=== PATIENT | male | born 1990 | race Caucasian/White ===

== ENCOUNTER 2021-10-11 21:49 | Emergency (ER) | payer OTHER, SELFPAY ==
--- NOTE | ~2021-10-11 | XR_ITS ---
EXAMINATION: XR CHEST CLINICAL INFORMATION: Cough COMPARISON: None TECHNIQUE: Frontal view of the chest was obtained. FINDINGS: The lungs are well expanded. There is no focal consolidation, edema, or effusion. No pneumothorax. The cardiomediastinal silhouette is within normal limits. No acute osseous abnormality. XR/XR chest 1V IMPRESSION: Clear lungs.
[2021-10-11 21:56] VITALS: BP 141/89; PULSE 115; RESP 18; TEMP 38.9; O2SAT 96; BMI 25.8
[2021-10-11] MEDS: Ondansetron ODT 4 MG TAB.RAPDIS TRANSLINGU (22:19)
[2021-10-11] MEDS: Acetaminophen 325 MG TABLET 650 MG PO (22:19)
--- NOTE | 2021-10-11 22:20 | ECG_ITS ---
Test Reason : DIZZINESS Blood Pressure : / mmHG Vent. Rate : 118 BPM Atrial Rate : 118 BPM P-R Int : 144 ms QRS Dur : 088 ms QT Int : 306 ms P-R-T Axes : 051 003 065 degrees QTc Int : 428 ms Sinus tachycardia Low voltage QRS Borderline ECG No previous ECGs available Referred By: Generic ED Physician Electronically Signed By:BELEN ARIAS
[2021-10-11 22:26] LABS: Basophils Percent Auto 0.1 % (0-2); Eosinophils Percent Auto 0.1 % (0-4); Hematocrit 45.8 % (42.0-52.0); Hemoglobin 16.2 g/dl (14.0-18.0); Imm Gran Abs Auto 0.04 X10*3/uL (0.00-0.03); Imm Gran Pct Auto 0.6 % (0.0-0.4); Lymphocytes Absolute Auto 0.5 X10*3/uL (1.2-4.9); Lymphocytes Percent Auto 6.6 % (20-40); MANUAL DIFF FLAG SCAN; Mean Corpuscular HGB Conc 35.4 g/dl (31.0-36.0); Mean Corpuscular Hemoglobin 31.2 pg (27.0-33.0); Mean Corpuscular Volume 88.2 fL (80.0-98.0); Mean Platelet Volume 12.1 fL (9.4-12.4); Monocytes Absolute Auto 1.4 X10*3/uL (0.1-1.2); Monocytes Percent Auto 21.1 % (2-11); Neutrophils Absolute Auto 4.8 x10*3/uL (2.0-8.3); Neutrophils Percent Auto 71.5 % (45-73); Platelet Count 145 X10*3/uL (160-400); Red Blood Count 5.19 X10*6/uL (4.60-5.80); Red Cell Distribution Width 12.2 % (11.0-16.0); SCAN SMEAR FLAG 1; White Blood Count 6.8 X10*3/uL (4.8-10.8)
[2021-10-11 22:36] LABS: COVID-19 Test Positive (Negative)
[2021-10-11 22:38] LABS: Lactic Acid 1.3 mmol/L (0.5-2.0)
[2021-10-11 22:43] LABS: Alanine Aminotransferase 117 U/L (0-40); Albumin Level 4.9 g/dL (3.5-5.0); Alkaline Phosphatase 53 U/L (39-117); Anion Gap 19 (12-20); Aspartate Amino Transferase 59 U/L (5-37); Bilirubin Total 0.8 mg/dL (0.0-1.0); Blood Urea Nitrogen 24 mg/dL (9-16); Calcium 9.8 mg/dL (8.4-10.2); Carbon Dioxide 22 mmol/L (22-29); Chloride 102 mmol/L (96-108); Creatinine Clr Calc Pharmacy 54.4; Estimated Glomerular Filt Rate 45; Glucose Random 107 mg/dL (60-115); Potassium 4.3 mmol/L (3.3-5.1); SLIDE REVIEW VERIFIED; Sodium 139 mmol/L (135-145)
[2021-10-12 01:05] VITALS: BP 136/81; PULSE 105; RESP 18; O2SAT 97
--- NOTE | 2021-10-12 01:08 | ED.NAVMDI ---
HPI - Nausea/Vomiting/Diarrhea General Chief complaint: Nausea/Vomiting/Diarrhea Stated complaint: Vomiting, fever Time Seen by Provider: 10/12/21 01:06 Source: patient Mode of arrival: ambulatory Limitations: no limitations History of Present Illness HPI Narrative: Patient with no significant past medical history been nauseated vomiting last 2 days slight sore throat and slight cough had fever also at home no significant abdominal pain patient has been vaccinated against COVID has not received a booster dose. No other family member sick Related Data Previous Rx's Medication Instructions Recorded ondansetron 4 mg disintegrating 4 mg PO Q6-8H PRN nausea and 10/12/21 tablet vomiting #15 tabs Allergies Allergy/AdvReac Type Severity Reaction Status Date / Time amoxicillin [AMOXICILLIN] Allergy Unknown HIVES Unverified 11/10/19 18:31 azithromycin [From ZITHROMAX] Allergy Unknown HIVES, Unverified 11/10/19 18:31 MUSCLE SPASMS sulfamethoxazole Allergy Unknown HIVES Unverified 11/10/19 18:31 [From BACTRIM] trimethoprim [From BACTRIM] Allergy Unknown HIVES Unverified 11/10/19 18:31 Review of Systems Review of Systems: Yes all other systems are reviewed and are negative [facility] Social History Social History Alcohol intake: current Alcohol intake frequency: a few times a week Patient Tobacco Use Status: Former Tobacco user Use of substances other than those prescribed or required for medical reasons: No Advance Directives: No Physical Exam Vital Signs: Vital Signs: Last Vital Signs Temp 99.4 F 10/12/21 02:58 Pulse 95 10/12/21 02:58 Resp 16 10/12/21 02:58 BP 124/79 10/12/21 02:58 Pulse Ox 94 10/12/21 02:58 O2 Del Method 10/12/21 02:58 BMI result Body Mass Index 25.8 Appearance: Alert. Oriented X3. No acute distress. ENT: Pharynx normal. Oral Mucosa moist Neck: Normal inspection. Neck supple. CVS: Normal heart rate and rhythm. Pulses normal. Respiratory: No respiratory distress. Equal air entry bilateral, no wheezing/rales/rhonchi Abdomen: Soft and nontender. Bowel sounds are present, no mass palpable, no CVA tenderness Skin: Skin warm and dry. Normal skin color. Normal skin turgor. Extremities: No lower extremity edema. No calf tenderness Neuro: Oriented X 3. No motor deficit. MDM - Nausea/Vomiting/Diarrhea Lab Data Attestation: I reviewed the patient's lab results. Result diagrams: 10/11/21 22:15 10/11/21 22:15 Labs: Lab Results 10/11/21 10/11/21 10/11/21 Range/Units 22:09 22:15 22:15 WBC 6.8 (4.8-10.8) X10*3/uL RBC 5.19 (4.60-5.80) X10*6/uL Hgb 16.2 (14.0-18.0) g/dl Hct 45.8 (42.0-52.0) % MCV 88.2 (80.0-98.0) fL MCH 31.2 (27.0-33.0) pg MCHC 35.4 (31.0-36.0) g/dl RDW 12.2 (11.0-16.0) % Plt Count 145 L (160-400) X10*3/uL MPV 12.1 (9.4-12.4) fL Immature Gran % (Auto) 0.6 H (0.0-0.4) % Neut % (Auto) 71.5 (45-73) % Lymph % (Auto) 6.6 L (20-40) % [place] % (Auto) 21.1 H (2-11) % Eos % (Auto) 0.1 (0-4) % Baso % (Auto) 0.1 (0-2) % Lymph # (Auto) 0.5 L (1.2-4.9) X10*3/uL [place] # (Auto) 1.4 H (0.1-1.2) X10*3/uL Eos # (Auto) 0.0 (0.0-0.4) X10*3/uL Baso # (Auto) 0.0 (0.0-0.2) X10*3/uL Abs Immat Gran (auto) 0.04 H (0.00-0.03) X10*3/uL Absolute Neuts (auto) 4.8 (2.0-8.3) x10*3/uL Absolute Nucleated RBC 0.000 (0.0-0.012) X10*3/uL Nucleated RBC % (auto) 0.0 (0.0-0.2) /100WBC Smear Tech's Comments VERIFIED Sodium 139 (135-145) mmol/L Potassium 4.3 (3.3-5.1) mmol/L Chloride 102 (96-108) mmol/L Carbon Dioxide 22 (22-29) mmol/L Anion Gap 19 (12-20) BUN 24 H (9-16) mg/dL Creatinine 1.74 H (0.5-1.4) mg/dL Estim Creat Clear Calc 54.4 Estimated GFR 45 Random Glucose 107 (60-115) mg/dL Lactic Acid (0.5-2.0) mmol/L Calcium 9.8 (8.4-10.2) mg/dL Total Bilirubin 0.8 (0.0-1.0) mg/dL AST 59 H (5-37) U/L ALT 117 H (0-40) U/L Alkaline Phosphatase 53 (39-117) U/L Total Protein 8.0 (6.5-8.0) g/dL Albumin 4.9 (3.5-5.0) g/dL COVID-19 (MARTHA) Positive A (Negative) COVID-19 Clin Com See Note 10/11/21 Range/Units 22:15 WBC (4.8-10.8) X10*3/uL RBC (4.60-5.80) X10*6/uL Hgb (14.0-18.0) g/dl Hct (42.0-52.0) % MCV (80.0-98.0) fL MCH (27.0-33.0) pg MCHC (31.0-36.0) g/dl RDW (11.0-16.0) % Plt Count (160-400) X10*3/uL MPV (9.4-12.4) fL Immature Gran % (Auto) (0.0-0.4) % Neut % (Auto) (45-73) % Lymph % (Auto) (20-40) % [place] % (Auto) (2-11) % Eos % (Auto) (0-4) % Baso % (Auto) (0-2) % Lymph # (Auto) (1.2-4.9) X10*3/uL [place] # (Auto) (0.1-1.2) X10*3/uL Eos # (Auto) (0.0-0.4) X10*3/uL Baso # (Auto) (0.0-0.2) X10*3/uL Abs Immat Gran (auto) (0.00-0.03) X10*3/uL Absolute Neuts (auto) (2.0-8.3) x10*3/uL Absolute Nucleated RBC (0.0-0.012) X10*3/uL Nucleated RBC % (auto) (0.0-0.2) /100WBC Smear Tech's Comments Sodium (135-145) mmol/L Potassium (3.3-5.1) mmol/L Chloride (96-108) mmol/L Carbon Dioxide (22-29) mmol/L Anion Gap (12-20) BUN (9-16) mg/dL Creatinine (0.5-1.4) mg/dL Estim Creat Clear Calc Estimated GFR Random Glucose (60-115) mg/dL Lactic Acid 1.3 (0.5-2.0) mmol/L Calcium (8.4-10.2) mg/dL Total Bilirubin (0.0-1.0) mg/dL AST (5-37) U/L ALT (0-40) U/L Alkaline Phosphatase (39-117) U/L Total Protein (6.5-8.0) g/dL Albumin (3.5-5.0) g/dL COVID-19 (MARTHA) (Negative) COVID-19 Clin Com Discharge Plan Discharge Clinical Impression: COVID-19 Patient Disposition: Home, Self-Care Instructions: COVID-19 (Coronavirus Disease 2019) (ED) Additional Instructions: Drink plenty of fluids Nausea medication as prescribed Tylenol for fever Social distancing till you completely get better Prescriptions: New ondansetron 4 mg tablet,disintegrating 4 mg PO Q6-8H PRN (Reason: nausea and vomiting) Qty: 15 0RF Interventions: ED Discharge Assessment Last Done: 10/12/21 03:21 Discharge Date/Time: 10/12/21 03:29
[2021-10-12] MEDS: Ketorolac Tromethamine 30 MG/ML VIAL IVPUSH (01:31)
[2021-10-12] MEDS: 0.9 % Sodium Chloride 1,000 ML 999 ML IV (01:31)
[2021-10-12 02:58] VITALS: BP 124/79; PULSE 95; RESP 16; TEMP 37.4; O2SAT 94
== END 2021-10-12 03:29 | disposition home or self-care (01) ==
PROVIDERS: Emergency Provider Internal Medicine
DX: U07.1 COVID-19 (principal); R50.9 Fever, unspecified
CPT/HCPCS: 71045; 80053; 83605; 85025; 87040; 87635; 93005; 96374; 99284; 99285; J1885

== ENCOUNTER 2022-10-17 22:57 | Emergency (ER) | payer OTHER, SELFPAY ==
--- NOTE | 2022-10-17 | ECG_ITS ---
Test Reason : CHEST PAIN Blood Pressure : / mmHG Vent. Rate : 066 BPM Atrial Rate : 066 BPM P-R Int : 136 ms QRS Dur : 098 ms QT Int : 400 ms P-R-T Axes : 032 014 069 degrees QTc Int : 419 ms Normal sinus rhythm Nonspecific T wave abnormality Abnormal ECG When compared with ECG of 11-OCT-2021 22:25, Vent. rate has decreased BY 52 BPM Referred By: Generic ED Physician Electronically Signed By:BELEN ARIAS
--- NOTE | ~2022-10-17 | XR_ITS ---
EXAMINATION: XR CHEST CLINICAL INFORMATION: Cough. Shortness of breath. COMPARISON: None available. TECHNIQUE: 2 views of the chest were obtained. FINDINGS: The cardiomediastinal silhouette is normal. There is no focal lung consolidation or pleural effusion. The bony structures and soft tissues are unremarkable. XR/XR chest 2V IMPRESSION: No active cardiopulmonary disease.
[2022-10-17 23:07] VITALS: BP 151/91; PULSE 83; RESP 18; TEMP 37.1; O2SAT 98; BMI 25.5
[2022-10-17 23:37] LABS: COVID-19 Test Negative (Negative); IDNOW Serial# 6674DD1D
[2022-10-18 01:24] VITALS: BP 127/61; PULSE 80; RESP 19; TEMP 36.3; O2SAT 97
--- NOTE | 2022-10-18 01:59 | ED.GENADULT ---
HPI - General Adult General Chief complaint: General Medical Stated complaint: Chest pains, dizziness, diff breathing Time Seen by Provider: 10/18/22 01:47 Source: patient Mode of arrival: ambulatory Limitations: no limitations History of Present Illness HPI narrative: 32-year-old male with no major medical problems presents with lightheadedness and chest pain. Symptoms of started yesterday of lightheadedness, palpitations and generalized weakness and fatigue. Today, he has had intermittent left-sided chest pain that is sharp in nature. It can radiate to his neck jaw and left arm. There is no clear relieving or exacerbating features. Is not SI associated with exertion. He has had no fevers, chills, cough or mucus production. He does note the symptoms of difficulty breathing on the left side of his chest as opposed was right-sided chest. Denies any lower extremity edema. Has no history of PE or DVT. No family history of sudden cardiac . Related Data Previous Rx's Medication Instructions Recorded ondansetron 4 mg disintegrating 4 mg PO Q6-8H PRN nausea and 10/12/21 tablet vomiting #15 tabs Allergies Allergy/AdvReac Type Severity Reaction Status Date / Time amoxicillin [AMOXICILLIN] Allergy Unknown HIVES Verified 10/17/22 23:07 azithromycin [From ZITHROMAX] Allergy Unknown HIVES, Verified 10/17/22 23:07 MUSCLE SPASMS sulfamethoxazole Allergy Unknown HIVES Verified 10/17/22 23:07 [From BACTRIM] trimethoprim [From BACTRIM] Allergy Unknown HIVES Verified 10/17/22 23:07 Review of Systems Review of Systems: CONSTITUTIONAL: Denies weight loss, fever and chills. HEENT: Denies changes in vision and hearing. RESPIRATORY: Denies SOB and cough. CV: Denies palpitations + CP. GI: Denies abdominal pain, nausea, vomiting and diarrhea. : Denies dysuria and urinary frequency. MSK: Denies myalgia and joint pain. SKIN: Denies rash and pruritus. NEUROLOGICAL: Denies headache and syncope. PSYCHIATRIC: Denies recent changes in mood. Denies anxiety and depression. All other ROS are negative unless in HPI PMFSH Social History Social History Alcohol intake: current Alcohol intake frequency: a few times a week Patient Tobacco Use Status: Former Tobacco user Advance Directives: No Advance Directives Information Provided: Yes Physical Exam ED Vital Signs: Vital Signs - 24 hr 10/17/22 23:07 10/18/22 01:24 Temperature 98.7 F 97.3 F Pulse Rate 83 80 Respiratory Rate 18 19 Blood Pressure 151/91 H 127/61 Pulse Oximetry 98 97 Oxygen Delivery Method Room Air Room Air BMI result Body Mass Index 25.5 GEN: Well developed, no acute distress, alert, oriented HEENT: Normocephalic, atraumatic, normal external ears, nose appears normal, no oropharyngeal edema or exudates Eyes: Normal to appearance Neck: Supple, no lymphadenopathy Respiratory: Talks in complete sentences, no respiratory distress, clear to auscultation bilaterally Cardiovascular: Regular rate and rhythm, no murmurs rubs or gallops Abdomen: Soft, nontender, nondistended, no guarding, no rebound Back: No CVA tenderness Extremities: No clubbing cyanosis or edema Neurologic: No focal neurologic deficits, cranial nerves 2-12 intact, strength is 5/5 bilaterally Skin: No rash Course Course Course Narrative: It is 3:26 a.m.. The workup is complete. Cardiac enzymes are negative. This essentially diagnostic for non ischemia. However, certainly would like to have the patient follow-up with a latin dance instructor to do some additional testing. Again consideration will be for Prinzmetal's angina in which case he might benefit from calcium channel blockers. Patient's pain is mostly resolved and I have discussed all results with the patient. He is aware that he can return at any time for any worsening, continued or other concerning symptoms. Medical Decision Making Medical Decision Making MDM Narrative: 32-year-old male presents with chest pain, lightheadedness. Examination is benign. Will obtain an EKG to rule out cardiac dysrhythmia, acute ischemia. Will check a cardiac enzymes to make sure there is no evidence of myocardial infarction. Patient has no criteria for PE or DVT. His PERC score 0. There is no indication for a D-dimer or CT angiogram of the chest. His vital signs are good he has normal oxygen saturation. However, if there is evidence of right heart strain on EKG, would certainly consider CT angiogram at that time. His chest pain is not reproducible on examination arguing against a musculoskeletal chest pain. Other differential diagnosis could include Prinzmetal's angina/coronary vasospasm, atypical chest pain, reflux, esophageal spasm, anxiety. Differential Diagnosis Differential Diagnoses: The differential diagnosis associated with the presentation includes (See above) Lab Data MDM Lab Attestation statement: I reviewed the patient's lab results. 10/18/22 02:45 10/18/22 02:45 Labs: Lab Results 10/17/22 10/18/22 10/18/22 Range/Units 23:11 02:45 02:45 WBC 8.9 (4.8-10.8) X10*3/uL RBC 5.11 (4.60-5.80) X10*6/uL Hgb 15.7 (14.0-18.0) g/dl Hct 44.8 (42.0-52.0) % MCV 87.7 (80.0-98.0) fL MCH 30.7 (27.0-33.0) pg MCHC 35.0 (31.0-36.0) g/dl RDW 11.8 (11.0-16.0) % Plt Count 190 D (160-400) X10*3/uL MPV 11.7 (9.4-12.4) fL Immature Gran % (Auto) 0.3 (0.0-0.4) % Neut % (Auto) 61.9 (45-73) % Lymph % (Auto) 25.3 (20-40) % [place] % (Auto) 10.3 (2-11) % Eos % (Auto) 1.9 (0-4) % Baso % (Auto) 0.3 (0-2) % Lymph # (Auto) 2.3 (1.2-4.9) X10*3/uL [place] # (Auto) 0.9 (0.1-1.2) X10*3/uL Eos # (Auto) 0.2 (0.0-0.4) X10*3/uL Baso # (Auto) 0.0 (0.0-0.2) X10*3/uL Abs Immat Gran (auto) 0.03 (0.00-0.03) X10*3/uL Absolute Neuts (auto) 5.5 (2.0-8.3) x10*3/uL Absolute Nucleated RBC 0.000 (0.0-0.012) X10*3/uL Nucleated RBC % (auto) 0.0 (0.0-0.2) /100WBC Sodium (135-145) mmol/L Potassium (3.3-5.1) mmol/L Chloride (96-108) mmol/L Carbon Dioxide (22-29) mmol/L Anion Gap (12-20) BUN (9-16) mg/dL Creatinine (0.5-1.4) mg/dL Estim Creat Clear Calc Estimated GFR Random Glucose (60-115) mg/dL Calcium (8.4-10.2) mg/dL Troponin I High Sens < 2.7 (<3.5-35.0) ng/L COVID-19 (MARTHA) Negative (Negative) COVID-19 Clin Com See Note 10/18/22 Range/Units 02:45 WBC (4.8-10.8) X10*3/uL RBC (4.60-5.80) X10*6/uL Hgb (14.0-18.0) g/dl Hct (42.0-52.0) % MCV (80.0-98.0) fL MCH (27.0-33.0) pg MCHC (31.0-36.0) g/dl RDW (11.0-16.0) % Plt Count (160-400) X10*3/uL MPV (9.4-12.4) fL Immature Gran % (Auto) (0.0-0.4) % Neut % (Auto) (45-73) % Lymph % (Auto) (20-40) % [place] % (Auto) (2-11) % Eos % (Auto) (0-4) % Baso % (Auto) (0-2) % Lymph # (Auto) (1.2-4.9) X10*3/uL [place] # (Auto) (0.1-1.2) X10*3/uL Eos # (Auto) (0.0-0.4) X10*3/uL Baso # (Auto) (0.0-0.2) X10*3/uL Abs Immat Gran (auto) (0.00-0.03) X10*3/uL Absolute Neuts (auto) (2.0-8.3) x10*3/uL Absolute Nucleated RBC (0.0-0.012) X10*3/uL Nucleated RBC % (auto) (0.0-0.2) /100WBC Sodium 141 (135-145) mmol/L Potassium 3.9 (3.3-5.1) mmol/L Chloride 109 H (96-108) mmol/L Carbon Dioxide 22 (22-29) mmol/L Anion Gap 14 (12-20) BUN 22 H (9-16) mg/dL Creatinine 1.12 (0.5-1.4) mg/dL Estim Creat Clear Calc 83.8 Estimated GFR > 60 Random Glucose 98 (60-115) mg/dL Calcium 9.6 (8.4-10.2) mg/dL Troponin I High Sens (<3.5-35.0) ng/L COVID-19 (MARTHA) (Negative) COVID-19 Clin Com Independent Interpretation I performed an independent interpretation of an: EKG (Normal sinus rhythm heart rate 66, normal intervals, no acute ST elevations depressions, nonspecific T-wave changes) and Plain X-Ray (No acute cardiopulmonary disease seen on chest x-ray) Prescription Management I considered prescription management with: Pain Medication Discharge Plan Discharge Clinical Impression: Acute chest pain Patient Disposition: Home, Self-Care Instructions: Chest Pain (DC) Prescriptions: No Action ondansetron 4 mg tablet,disintegrating 4 mg PO Q6-8H PRN (Reason: nausea and vomiting) Qty: 15 0RF Referrals: Zac Timmons MD [Physician] -
[2022-10-18 02:50] LABS: MANUAL DIFF FLAG NO
[2022-10-18 02:51] LABS: Basophils Percent Auto 0.3 % (0-2); Eosinophils Absolute Auto 0.2 X10*3/uL (0.0-0.4); Eosinophils Percent Auto 1.9 % (0-4); Hematocrit 44.8 % (42.0-52.0); Hemoglobin 15.7 g/dl (14.0-18.0); Imm Gran Abs Auto 0.03 X10*3/uL (0.00-0.03); Imm Gran Pct Auto 0.3 % (0.0-0.4); Lymphocytes Absolute Auto 2.3 X10*3/uL (1.2-4.9); Lymphocytes Percent Auto 25.3 % (20-40); Mean Corpuscular Hemoglobin 30.7 pg (27.0-33.0); Mean Corpuscular Volume 87.7 fL (80.0-98.0); Mean Platelet Volume 11.7 fL (9.4-12.4); Monocytes Absolute Auto 0.9 X10*3/uL (0.1-1.2); Monocytes Percent Auto 10.3 % (2-11); Neutrophils Absolute Auto 5.5 x10*3/uL (2.0-8.3); Neutrophils Percent Auto 61.9 % (45-73); Platelet Count 190 X10*3/uL (160-400); Red Blood Count 5.11 X10*6/uL (4.60-5.80); Red Cell Distribution Width 11.8 % (11.0-16.0); White Blood Count 8.9 X10*3/uL (4.8-10.8)
[2022-10-18 03:03] LABS: Anion Gap 14 (12-20); Blood Urea Nitrogen 22 mg/dL (9-16); Calcium 9.6 mg/dL (8.4-10.2); Carbon Dioxide 22 mmol/L (22-29); Chloride 109 mmol/L (96-108); Creatinine Clr Calc Pharmacy 83.8; Estimated Glomerular Filt Rate > 60; Glucose Random 98 mg/dL (60-115); Potassium 3.9 mmol/L (3.3-5.1); Sodium 141 mmol/L (135-145)
[2022-10-18 03:10] LABS: Troponin-I High Sensitivity < 2.7 ng/L (<3.5-35.0)
[2022-10-18 03:37] VITALS: BP 148/102; PULSE 52; RESP 17; O2SAT 99
== END 2022-10-18 03:38 | disposition home or self-care (01) ==
PROVIDERS: Emergency Provider Emergency Medicine; PCP Family Medicine
DX: R07.9 Chest pain, unspecified (principal); Z20.822 Contact with and (suspected) exposure to COVID-19
CPT/HCPCS: 36415; 71046; 80048; 84484; 85025; 87635; 93005; 99283

== ENCOUNTER 2023-10-02 18:39 | Emergency (ER) | payer OTHER, SELFPAY ==
--- NOTE | 2023-10-02 | ECG_ITS ---
Test Reason : CP Blood Pressure : / mmHG Vent. Rate : 076 BPM Atrial Rate : 076 BPM P-R Int : 114 ms QRS Dur : 092 ms QT Int : 370 ms P-R-T Axes : 029 022 058 degrees QTc Int : 416 ms Normal sinus rhythm Normal ECG When compared with ECG of 17-OCT-2022 23:03, No significant change was found Referred By: Generic ED Physician Electronically Signed By:ROS AMBROCIO MD
[2023-10-02 18:50] VITALS: BP 165/97; PULSE 81; RESP 18; TEMP 37.1; O2SAT 97; BMI 23.9
--- NOTE | 2023-10-02 18:51 | ED_ITS ---
HPI - General Adult General Chief complaint: General Medical Stated complaint: adverse reaction to medication, off/on CP Time Seen by Provider: 10/03/23 04:06 History of Present Illness ED Provider: Madina MORTENSEN narrative: The patient is a 33-year-old male who has a history of alcohol use issues but no other significant past medical history. He says that he saw his regular doctor earlier this week on Thursday and was prescribed Wellbutrin for depression. He took his 1st dose on Thursday. On Thursday evening he took some Benadryl. When he woke up on morning felt that something was not quite right. He felt somewhat confused and felt that he had numbness on the left side of his body. He also felt dizzy. Despite these symptoms he went to work. He was able to do his work but he found it difficult. On Thursday his symptoms persisted. He went to work but ultimately called his doctor and told his doctor about his left- sided symptoms and a sense of contusion and his doctor recommended he come to the emergency room. No fever, sweats, chills. The patient was recently in [place]. He returned last week. He had been in [place] for 4 days to go mountain climbing. The patient is unaware of any family history of early coronary disease. He is unaware of any family history of DVT/PE. No pain or swelling in his legs. Related Data Previous Rx's ?Medication ?Instructions ?Recorded ondansetron 4 mg disintegrating 4 mg PO Q6-8H PRN nausea and 10/12/21 tablet vomiting #15 tabs Allergies Allergy/AdvReac Type Severity Reaction Status Date / Time amoxicillin [AMOXICILLIN] Allergy Unknown HIVES Verified 10/02/23 18:55 azithromycin [From ZITHROMAX] Allergy Unknown HIVES, Verified 10/02/23 18:55 MUSCLE SPASMS sulfamethoxazole Allergy Unknown HIVES Verified 10/02/23 18:55 [From BACTRIM] trimethoprim [From BACTRIM] Allergy Unknown HIVES Verified 10/02/23 18:55 Review of Systems 2 Review of Systems: Yes all other systems are reviewed and are negative [facility] Social History Social History Alcohol intake: current Alcohol intake frequency: a few times a week Patient Tobacco Use Status: Former Tobacco user Smoked in Last 30 Days: No Use of substances other than those prescribed or required for medical reasons: No Advance Directives: No Advance Directives Information Provided: No Do you have a plan to hurt others: No Plan Physical Exam ED Vital Signs: Vital Signs - 24 hr 10/02/23 18:50 10/02/23 23:55 10/03/23 02:00 Temperature 98.8 F 98.5 F 98.1 F Pulse Rate 81 64 66 Respiratory Rate 18 18 16 Blood Pressure 165/97 H 140/97 H 141/96 H Pulse Oximetry 97 99 98 Oxygen Delivery Method Room Air Room Air Room Air 10/03/23 04:00 10/03/23 04:33 Temperature 97.9 F 97.9 F Pulse Rate 55 55 Respiratory Rate 18 18 Blood Pressure 123/86 123/86 Pulse Oximetry 98 98 Oxygen Delivery Method Room Air Room Air BMI result Body Mass Index 23.9 Const Other: The patient is a slim 33-year-old man who is awake and alert. He seems well oriented. He does not seem obviously confused. He does not seem in any obvious acute distress. HENMT Other: The face is symmetrical. Mucus membranes are moist. The posterior faring is unremarkable. The face exam is unremarkable. Eyes General: appearance normal, both eyes and all related structures Visual Stoll: normal visual stoll by confrontation Alignment and Position: alignment normal Periorbital: periorbital findings normal Eyelids: Yes eyelids normal Conjunctivae: conjunctivae normal Sclerae: sclerae normal Pupils: Equal, round and reactive pupils present EOM: EOMs intact bilaterally Neck Neck: Yes no meningeal signs and Yes no JVD Lymphatic: no lymphadenopathy noted Resp Effort & Inspection: normal respiratory effort Auscultation: clear to auscultation bilaterally Cardio Rate: regular rate Rhythm: regular rhythm Heart sounds: S1 normal heart sound present and S2 normal heart sound present GI Other: Nontender Palpation (GI): Soft to palpation Skin General skin exam: no rashes or lesions noted and turgor normal Neuro Other: The patient is awake and alert, oriented, and appropriate. Peoples around, equal, and reactive to light, extraocular movements are intact. ?Visual stoll are intact to confrontation. The face is symmetrical. Speech is clear and appropriate. ?strength is normal and all extremities. No pronator drift. Finger nose is normal bilaterally. Heel cordero is normal bilaterally. The patient has a normal Romberg. ?No neurological deficits appreciated. General: no meningeal signs Cranial nerves: Yes Equal, round and reactive pupils present Extrem General: Yes no pedal edema and Yes no calf tenderness Course Course Course Narrative: This is an RME: Additional HPI, ROS, PE not included below will be deferred to primary provider. RME assessment and note performed by: Tiff Maciel PA-C This is a [id number]lmr-male, with no known medical problems, who presents to the ER with complaints of dizziness, left sided facial numbness, left arm numbness. Reports episode of confusion yesterday, felt this after standing up yesterday, took extra strength benadryl the night prior due to allergy symptoms after dog exposure. Recently started on wellbutrin this week. Plan: Medical Decision Making Medical Decision Making MDM Narrative: The patient is a 33-year-old male who has a history of some degree of alcoholism, although he is not currently drinking and has not been drinking over the last several days. He started taking Wellbutrin three days ago. Over the past two days he has had unusual symptoms that include tingling on the left side of his face and his left arm. He also says that he has felt confused over the last couple of days. He returned to this area from a trip to [place] last week. He had been in [place] for four days mountain climbing. 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 ?He says that he felt sufficiently confused and bothered by his left side at symptoms today that he called his doctor and was advised to come to the emergency room. The patient's vital signs are unremarkable. His neurological exam seems normal. He does not seem to have risk factors for early coronary disease. He is PERC negative. ?EKG is normal. ?His EKG shows normal sinus rhythm at 76 bpm with normal intervals and no ischemic changes. Overall, I find the patients physical exam and his work up unremarkable. ?CBC is normal. He has some mild transaminase abnormalities that seems to be chronic. Perhaps the patient symptoms are related to the initiation of Wellbutrin or possibly the combination of Wellbutrin and Benadryl he had used. In any event I do not see any indication for additional testing in the emergency department or hospitalization. I think he may be discharged. He will be advised to hold his Wellbutrin over the weekend and contact his doctor on Thursday to discuss whether he should resume the Wellbutrin. He should return to the emergency room if worse. Lab Data 10/02/23 19:22 10/02/23 19:22 Labs: Lab Results 10/02/23 10/02/23 10/03/23 Range/Units 19:17 19:22 00:00 WBC 7.1 (4.8-10.8) X10*3/uL RBC 5.00 (4.60-5.80) X10*6/uL Hgb 15.7 (14.0-18.0) g/dl Hct 44.1 (42.0-52.0) % MCV 88.2 (80.0-98.0) fL MCH 31.4 (27.0-33.0) pg MCHC 35.6 (31.0-36.0) g/dl RDW 13.1 (11.0-16.0) % Plt Count 200 (160-400) X10*3/uL MPV 11.4 (9.4-12.4) fL Immature Gran % (Auto) 0.3 (0.0-0.4) % Neut % (Auto) 67.6 (45-73) % Lymph % (Auto) 20.6 (20-40) % [place] % (Auto) 9.2 (2-11) % Eos % (Auto) 1.7 (0-4) % Baso % (Auto) 0.6 (0-2) % Lymph # (Auto) 1.5 (1.2-4.9) X10*3/uL [place] # (Auto) 0.7 (0.1-1.2) X10*3/uL Eos # (Auto) 0.1 (0.0-0.4) X10*3/uL Baso # (Auto) 0.0 (0.0-0.2) X10*3/uL Abs Immat Gran (auto) 0.02 (0.00-0.03) X10*3/uL Absolute Neuts (auto) 4.8 (2.0-8.3) x10*3/uL Absolute Nucleated RBC 0.000 (0.0-0.012) X10*3/uL Nucleated RBC % (auto) 0.0 (0.0-0.2) /100WBC PT 11.4 (11.1-13.3) SEC INR 0.9 (0.9-1.1) Sodium 143 (135-145) mmol/L Potassium 4.0 (3.3-5.1) mmol/L Chloride 110 H (96-108) mmol/L Carbon Dioxide 25 (22-29) mmol/L Anion Gap 12 (12-20) BUN 17 H (9-16) mg/dL Creatinine 1.17 (0.5-1.4) mg/dL Estim Creat Clear Calc 79.5 Estimated GFR > 60 Random Glucose 88 (60-115) mg/dL Calcium 10.2 D (8.4-10.2) mg/dL Magnesium 2.2 (1.6-2.6) mg/dL Total Bilirubin 0.5 (0.0-1.0) mg/dL Direct Bilirubin 0.1 (0.0-0.5) mg/dL AST 42 H (5-37) U/L ALT 104 H (0-40) U/L Alkaline Phosphatase 53 (39-117) U/L Troponin I High Sens < 2.7 < 2.7 (<3.5-35.0) ng/L Total Protein 7.5 (6.5-8.0) g/dL Albumin 4.7 (3.5-5.0) g/dL Lipase 19 (8-78) U/L Influenza Type A (PCR) NEGATIVE (Negative) Influenza Type B (PCR) NEGATIVE (Negative) RSV RNA Qual (PCR) NEGATIVE (Negative) SARS-CoV-2 RNA (RT-PCR) NEGATIVE (Negative) Discharge Plan Discharge Clinical Impression: Confusion, Left sided numbness Patient Disposition: Home, Self-Care Additional Instructions: Your evaluation in the emergency room seems reassuring from the point of view of any acutely dangerous process. I would recommend stopping the Wellbutrin over the weekend. Please contact your regular doctor on Thursday to discuss how you are doing and to discuss whether resuming the Wellbutrin after several days of feeling okay seems reasonable. Otherwise rest and take it easy over the weekend. If at any point you feel significantly worse please return to the emergency room for additional evaluation. Prescriptions: No Action ondansetron 4 mg tablet,disintegrating 4 mg PO Q6-8H PRN (Reason: nausea and vomiting) Qty: 15 0RF Referrals: Alexandro Morrison DO [Primary Care Provider] - Interventions: ED Discharge Assessment Last Done: 10/03/23 04:33 Discharge Date/Time: 10/03/23 04:34 Print Language: Azerbaijani
--- OUTSIDE RECORDS SUMMARY | 2023-10-02 19:25 | XMS_ITS | Continuity of Care Document ---
Author Organization [facility] Address [address] [place] [address]- Care Team Providers Care Scrap Collector Name Role Phone Alli FLOYD, Delmi Dawn Primary Care Physician Encounter [facility] Date(s): 05/10/21 - 06/09/21 [facility] [address] [place] [address]- Attending Physician: Matrin Martinez Admitting Physician: Martin Martinez Referring Physician: AdmtrMartin Allergies, Adverse Reactions, Alerts Substance Reaction Severity Status azithromycin Active penicillin Active Bactrim Active Medications aspirin 325 mg oral tablet 325 mg, 1, tablet, By Mouth, Daily, start tomorrow 05/23, Refills 0, Maintenance, 05/22/21 7:30:00 EDT, Partial fill upon patient request if the prescription is for a schedule II opioid drug. Start Date: 05/22/21 Stop Date: 06/05/21 Status: Ordered busPIRone 7.5 mg oral tablet 1 tablet = 7.5 mg, By Mouth, 2 times a day, # 60 tablet, 6 Refills, Maintenance, 05/10/21 12:23:00 EDT, [facility] #[id number], Partial fill upon patient request if the prescription is for a schedule II opioid drug., 166.5, cm, 05/10/21 11:12:00... Start Date: 05/10/21 Stop Date: 12/06/21 Status: Ordered cyclobenzaprine 10 mg oral tablet 10 mg, 1, tablet, By Mouth, 3 times a day, PRN, Refills 0, Maintenance, for spasm, 05/22/21 7:31:00EDT, Partial fill upon patient request if the prescription is for a schedule II opioid drug. Start Date: 05/22/21 Status: Ordered hydrOXYzine hydrochloride 50 mg oral tablet 1 tablet = 50 mg, By Mouth, 4 times a day, PRN for anxiety, May cause drowsiness, # 40 tablet, 1 Refills, Maintenance, 05/10/21 12:23:00 EDT, Tablet, [facility] #[id number], Partial fill upon patient request if the prescription is for a schedule... Start Date: 05/10/21 Status: Ordered losartan 25 mg oral tablet See Instructions, 1/2 tablet every 12 hours for 28 days, start tomorrow, Refills 0, Maintenance, 05/22/21 7:33:00 EDT, Instructions Replace Required Details, Partial fill upon patient request if the prescription is for a schedule II opioid drug. Start Date: 05/22/21 Status: Ordered naproxen 500 mg oral tablet 1 tablet = 500 mg, By Mouth, 2 times a day, 0 Refills, Maintenance, 05/22/21 7:29:00 EDT, Tablet, Partial fill upon patient request if the prescription is for a schedule II opioid drug. Start Date: 05/22/21 Stop Date: 06/05/21 Status: Ordered ondansetron 4 mg oral tablet See Instructions, 1 tablet By Mouth Every 6-8 hours as needed for nausea, 0 Refills, Maintenance, 05/22/21 7:35:00 EDT, Tablet, Partial fill upon patient request if the prescription is for a scheduleII opioid drug. Start Date: 05/22/21 Status: Ordered Oxycodone See Instructions, 0 Refills, Maintenance, 05/22/21 11:09:00 EDT, Partial fill upon patient request if the prescription is for a schedule II opioid drug. Start Date: 05/22/21 Status: Ordered oxyCODONE 5 mg oral capsule See Instructions, PRN Pain , Moderate, 1 tab every 4-6 hours as needed for pain DO NOT drive while taking this medication, 0 Refills, Maintenance, 05/22/21 7:37:00 EDT, Partial fill upon patient request if the prescription is for a schedule II opio... Start Date: 05/22/21 Status: Ordered propranolol 10 mg oral tablet See Instructions, PRN, 1 tablet by mouth, 30-60 minutes before event, # 20 tablet, Refills 0, Tot. Refills 0, Maintenance, Anxiety, 12/07/19 17:08:00 EDT, Instructions Replace Required Details, [facility], [facility]/pharmacy #[id number], [address]... Start Date: 12/07/19 Status: Ordered Problem List Condition Effective Dates Status Health Status Inform ant TAVO (generalized anxiety disorder)(Confirmed) Active Panic disorder(Confirmed) Active Social History Social History Type Response Smoking Status Never (less than 100 in lifetime) entered on: 11/30/19 Sex
--- OUTSIDE RECORDS SUMMARY | 2023-10-02 19:25 | XMS_ITS | Continuity of Care Document ---
Author Organization [facility] Address [address] [place] [address]- Care Team Providers Care Bioinformatics Specialist Name Role Phone Delmi Carson NP Primary Care Physician Encounter [facility] Date(s): 05/10/21 - 05/17/21 [facility] [address] [place] [address]- Encounter Diagnosis TAVO (generalized anxiety disorder)(Discharge Diagnosis) - 05/10/21 Panic disorder(Discharge Diagnosis) - 05/10/21 Attending Physician: Delmi Carson NP Allergies, Adverse Reactions, Alerts Substance Reaction Severity Status azithromycin Active penicillin Active Bactrim Active Medications busPIRone 7.5 mg oral tablet 1 tablet = 7.5 mg, By Mouth, 2 times a day, # 60 tablet, 6 Refills, Maintenance, 05/10/21 12:23:00 EDT, [facility] #[id number], Partial fill upon patient request if the prescription is for a schedule II opioid drug., 166.5, cm, 05/10/21 11:12:00... Start Date: 05/10/21 Stop Date: 12/06/21 Status: Ordered escitalopram 10 mg oral tablet 1 tablet = 10 mg, By Mouth, Daily, # 90 tablet, 3 Refills, Maintenance, 05/24/21 8:57:00 EDT, [facility] #[id number], Partial fill upon patient request if the prescription is for a schedule II opioid drug., 166.5, cm, 05/10/21 11:12:00 ED... Start Date: 05/24/21 Stop Date: 09/21/21 Status: Ordered escitalopram 10 mg oral tablet 1 tablet = 10 mg, By Mouth, Daily, for 30 days, # 30 tablet, 1 Refills, Hard Stop 05/24/21 8:57:00 EDT, 03/25/21 8:57:00 EST, Tablet, [facility] #[id number], Partial fill upon patient request ifthe prescription is for a schedule II opioid drug.,... Start Date: 03/25/21 Stop Date: 05/24/21 Status: Ordered hydrOXYzine hydrochloride 50 mg oral tablet 1 tablet = 50 mg, By Mouth, 4 times a day, PRN for anxiety, May cause drowsiness, # 40 tablet, 1 Refills, Maintenance, 05/10/21 12:23:00 EDT, Tablet, [facility] #[id number], Partial fill upon patient request if the prescription is for a schedule... Start Date: 05/10/21 Status: Ordered propranolol 10 mg oral tablet See Instructions, PRN, 1 tablet by mouth, 30-60 minutes before event, # 20 tablet, Refills 0, Tot. Refills 0, Maintenance, Anxiety, 12/07/19 17:08:00 EDT, Instructions Replace Required Details, [facility] Electron[facility], [facility]/pharmacy #[id number], [address]... Start Date: 12/07/19 Status: Ordered Voltaren 1% topical gel 1 application, Topically, 4 times a day, PRN for pain, # 100 Gm, 0 Refills, Maintenance, 06/22/20 10:30:00 EDT, Gel, [facility] #[id number], Partial fill upon patient request if the prescriptionis for a schedule II opioid drug., 1 application To... Start Date: 06/22/20 Stop Date: 07/22/20 Status: Ordered Problem List Condition Effective Dates Status Health Status Inform ant TAVO (generalized anxiety disorder)(Confirmed) Active Panic disorder(Confirmed) Active Diagnosis Diagnosis Type Effective Dates Health Status Cl inical Service Informant TAVO (generalized anxiety disorder) Discharge Diagnosis 05/10/21 Panic disorder Discharge Diagnosis 05/10/21 Vital Signs Most recent to oldest [Reference Range]: 1 Height 166.5 cm (05/10/21 11:12 AM) Weight 73.5 kg (05/10/21 11:12 AM) Oxygen Saturation [94-100 %] 98 % (05/10/21 11:12 AM) Pulse Rate [55-90 bpm] 80 bpm (05/10/21 11:12 AM) Body Mass Index [18.5-24.99] 26.51 *H* (05/10/21 11:12 AM) Blood Pressure [90-138/55-84 mm Hg] 121/ 78mm Hg (05/10/21 11:12 AM) Respiratory Rate [16-30 br/min] 16 br/mi n (05/10/21 11:12 AM) Blood pressure sites Arm, right (05/10/21 11:12 AM) Weight Obtained Via Standing scale (05/10/21 11:12 AM) Social History Social History Type Response Smoking Status Never (less than 100 in lifetime) entered on: 11/30/19 Sex
--- OUTSIDE RECORDS SUMMARY | 2023-10-02 19:25 | XMS_ITS | Continuity of Care Document ---
Author Organization [facility] Address [address] [place] [address]- Care Team Providers Care Packer Name Role Phone Alexandro Morrison DO Primary Care Physician Encounter [facility] Date(s): 03/11/23 - 03/18/23 [facility] [address] [place] [address]- Encounter Diagnosis Right tennis elbow(Discharge Diagnosis) - 03/11/23 Runner's knee(Discharge Diagnosis) - 03/11/23 Left shoulder pain(Discharge Diagnosis) - 03/11/23 Panic disorder(Discharge Diagnosis) - 03/11/23 Attending Physician: Alexandro Morrison DO Allergies, Adverse Reactions, Alerts Substance Reaction Severity Status azithromycin Active penicillin Active Bactrim Active Medications Ativan 1 mg oral tablet See Instructions, PRN as needed for anxiety, 1 tablet By Mouth as needed before flying, # 20 tablet, 0 Refills, Acute 02/24/24 0:00:00 EST, 03/11/23 11:10:00 EST, Tablet, [facility] #[id number],Partial fill upon patient request if the prescripti... Start Date: 03/11/23 Stop Date: 02/24/24 Status: Ordered Problem List Condition Confirmation Course Effective Dates Status Health St atus Informant Runner's knee Confirmed Active Alcohol use Confirmed Active TAVO (generalized anxiety disorder) Confirmed Active Right tennis elbow Confirmed Active Left shoulder pain Confirmed Active Panic disorder Confirmed Active Travel advice encounter Confirmed Active Diagnosis Diagnosis Type Effective Dates Health Status inical Service Informant Right tennis elbow Discharge Diagnosis 03/11/23 Runner's knee Discharge Diagnosis 03/11/23 Left shoulder pain Discharge Diagnosis 03/11/23 Panic disorder Discharge Diagnosis 03/11/23 Non-Specified Vital Signs Most recent to oldest [Reference Range]: 1 Height 166.5 cm (03/11/23 10:49 AM) Weight 71.8 kg (03/11/23 10:49 AM) Oxygen Saturation [94-100 %] 99 % (03/11/23 10:49 AM) Pulse Rate [55-90 bpm] 71 bpm (03/11/23 10:49 AM) Body Mass Index [18.5-24.99 kg/m2] 25.9 kg/m2 *H* (03/11/23 10:49 AM) Blood Pressure [90-138/55-84 mm Hg] 131/ 89mm Hg (03/11/23 10:49 AM) Mode of Delivery (Oxygen) Room air (03/11/23 10:49 AM) Blood pressure sites Arm, left (03/11/23 10:49 AM) Weight Obtained Via Standing scale (03/11/23 10:49 AM) Social History Social History Type Response Smoking Status Never (less than 100 in lifetime) entered on: 11/30/19 Sex Note * Daniela Yan: PERFORM, SIGN, VERIFY Event Display: Patient Education/Instruction Authored Date: [id number] [facility] *[facility] Clinical Summary Name DIGNA WHITMAN Age 32 Years 1990 PCP Alexandro Morrison DO PCP Visit Date 03/11/2023 10:44:00 Additional Instructions: Scheduled Appointments?? Future Appointments ?No Future Appointments Scheduled Follow-Up Instructions ?? Diagnosis Chondromalacia patellae, unspecified knee; Lateral epicondylitis, right elbow; Pain in left shoulder; Panic disorder [episodic paroxysmal anxiety] Medications: Please continue your medications until treatment is completed or stopped by your provider. Discuss any questions related to medications with your provider. Medications to Continue with No Changes [facility] #[id number], [address], [place] [id number], [phone] Lorazepam (Ativan 1 mg oral tablet) 1 tablet By Mouth as needed before flying; as needed as needed for anxiety. Refills: 0. Next Dose: Allergy Info:?? Bactrim; penicillin; azithromycin Medications Given This Visit Future Orders ?No future orders Vital Signs Height 166.5 cm Weight 71.8 kg BMI 25.9 kg/m2 Blood Pressure 131 mm Hg/89 mm Hg Temperature Pulse Rate 71 bpm Respiratory Rate 02 Sat Mode of Delivery 99 %/Room air You can now view a summary of your hospital visit from the comfort of your home through a free online portal called [employer]. [employer] is a website that allows you to securely view your medical information including discharge summary, medications and follow-up visits. ??You can alsosend a secure electronic message to your doctor???s office to request appointments, renew medications or just ask a question. You can enroll at [email or web address] or register during your next office visit. Disclaimer:?? The information provided is of a general nature and is intended to be used in conjunction with the recommendations and advice of your health care practitioner. ??Every effort has been made to ensure that the information provided is accurate and complete at the time it is provided to you however, as your needs change, or, as new ??information becomes available, different or additional instructions may be required. If you have questions, please consult with your primary care provider or pharmacist, as appropriate. ??This information is not intended to serve as substitution for assessment and evaluation by a qualified health care provider. If you do not have a primary care provider, you may find a [facility] provider by calling [facility] Link at [phone]. [facility], in keeping with [facility] guidance, no longer requires face masks for staff, patientsor visitors in most situations. Similar to time spent indoors at other locations, there is the chance that you were exposed to respiratory viruses during your time with us (such as flu or COVID-19).? If you develop symptoms concerning for a viral respiratory infection, please seek testing (and treatment if indicated) from your medical provider or home test kit. For information about the plan of care including goals and instructions for your diagnosis, please see the patient education orders section of this document. Patient Education Materials?? The content of this educational material or handout may have been modified, supplemented, or adapted from its original content and format to support your individualized medical care. Patient Care team information Care Team Personnel Name: Alexandro Morrison DO Position: S Physician - Primary Care Member Role: PCP Address: Address: [address] [place] [id number]- Care Team Related Persons Name: PT STATES, NO ONE
--- OUTSIDE RECORDS SUMMARY | 2023-10-02 19:25 | XMS_ITS | Continuity of Care Document ---
Author Organization [facility] Address [address] [place] [address]- Care Team Providers Care Chipper Feeder Name Role Phone Alli FLOYD, Delmi Dawn Primary Care Physician [place] [facility] [place] 01/10/21 - 02/09/21 [facility] [address] [place] [address]- Allergies, Adverse Reactions, Alerts Substance Reaction Severity Status azithromycin Active penicillin Active Bactrim Active Medications busPIRone 7.5 mg oral tablet 1 tablet = 7.5 mg, By Mouth, 2 times a day, # 60 tablet, 1 Refills, Maintenance, 01/25/21 11:40:[id number], Partial fill upon patient request if the prescription is for a schedule II opioid drug., 166.5, cm, 01/25/21 11:00:00... Start Date: 01/25/21 Stop Date: 03/26/21 Status: Ordered diclofenac sodium 75 mg oral delayed release tablet 1 tablet = 75 mg, By Mouth, 2 times a day, # 60 tablet, 2 Refills, Maintenance, 07/09/20 10:18:00 EDT, EC Tablet, [facility] #[id number], Partial fill upon patient request if the prescription isfor a schedule II opioid drug., 166.5, cm, 07/09/20... Start Date: 07/09/20 Status: Ordered escitalopram 5 mg oral tablet See Instructions, Take by mouth Week 1: 1/2 tab daily for 1 week 1 tab daily thereafter, # 30 tablet, 1 Refills, Maintenance, 01/25/21 11:38:00 EST, Tablet, [facility] #[id number], Partial fill upon patient request if the prescription is for a... Start Date: 01/25/21 Status: Ordered omeprazole 20 mg oral delayed release tablet 1 tablet = 20 mg, By Mouth, Daily, # 14 tablet, 0 Refills, Maintenance, 11/30/19 9:22:00 EDT, CR Tablet, [facility]/pharmacy #[id number], 166.5, cm, 11/30/19 8:12:00 EDT, Height Start Date: 11/30/19 Stop Date: 12/14/19 Status: Ordered propranolol 10 mg oral tablet See Instructions, PRN, 1 tablet by mouth, 30-60 minutes before event, # 20 tablet, Refills 0, Tot. Refills 0, Maintenance, Anxiety, 12/07/19 17:08:00 EDT, Instructions Replace Required Details, [facility], [facility]/pharmacy #[id number], 166... Start Date: 12/07/19 Status: Ordered Voltaren 1% topical gel 1 application, Topically, 4 times a day, PRN for pain, # 100 Gm, 0 Refills, Maintenance, 06/22/20 10:30:00 EDT, Gel, [facility] #[id number], Partial fill upon patient request if the prescriptionis for a schedule II opioid drug., 1 application To... Start Date: 06/22/20 Stop Date: 07/22/20 Status: Ordered Social History Social History Type Response Smoking Status Never (less than 100 in lifetime) entered on: 11/30/19 Sex
--- OUTSIDE RECORDS SUMMARY | 2023-10-02 19:25 | XMS_ITS | Continuity of Care Document ---
Author Organization [facility] Address [address] [place] [address]- Care Team Providers Care Airfield Services Officer Name Role Phone Alexandro Morrison DO Primary Care Physician [phone] [id number] Date[facility] - 08/22/22 [facility] [address] [place] [address]- Encounter Diagnosis Panic disorder(Discharge Diagnosis) - 08/15/22 Travel advice encounter(Discharge Diagnosis) - 08/15/22 Alcohol use(Discharge Diagnosis) - 08/15/22 Attending Physician: Alexandro Morrison DO Allergies, Adverse Reactions, Alerts Substance Reaction Severity Status azithromycin Active penicillin Active Bactrim Active Medications Ativan 1 mg oral tablet See Instructions, PRN as needed for anxiety, 1 tablet By Mouth as needed before flying, # 5 tablet,0 Refills, Acute 02/24/24 0:00:00 EST, 08/15/22 8:06:00 EDT, Tablet, [facility] #[id number], Partial fill upon patient request if the prescription... Start Date: 08/15/22 Stop Date: 02/24/24 Status: Ordered Problem List Condition Confirmation Course Effective Dates Status Health St [facility] Informant Alcohol use Confirmed Active TAVO (generalized anxiety disorder) Confirmed Active Panic disorder Confirmed Active Travel advice encounter Confirmed Active Diagnosis Diagnosis Type Effective Dates Health Status inical Service Informant Panic disorder Discharge Diagnosis 08/15/22 Travel advice encounter Discharge Diagnosis 08/15/22 Alcohol use Discharge Diagnosis 08/15/22 Vital Signs Most recent to oldest [Reference Range]: 1 Height 166.5 cm (08/15/22 7:46 AM) Weight 72.3 kg (08/15/22 7:46 AM) Oxygen Saturation [94-100 %] 97 % (08/15/22 7:46 AM) Pulse Rate [55-90 bpm] 68 bpm (08/15/22 7:46 AM) Body Mass Index [18.5-24.99 kg/m2] 26.08 kg/m2 *H* (08/15/22 7:46 AM) Blood Pressure [90-138/55-84 mm Hg] 120/ 85mm Hg (08/15/22 7:46 AM) Mode of Delivery (Oxygen) Room air (08/15/22 7:46 AM) Blood pressure sites Arm, right (08/15/22 7:46 AM) Weight Obtained Via Standing scale (08/15/22 7:46 AM) Social History Social History Type Response Smoking Status Never (less than 100 in lifetime) entered on: 11/30/19 Sex Note * Daniela Yan: VERIFY, PERFORM, SIGN Event Display: Patient Education/Instruction Authored Date: [id number] [facility] *[facility] Clinical Summary Name DIGNA WHITMAN Age 32 Years 1990 PCP Alexandro Morrison DO PCP Visit Date 08/15/2022 07:45:00 Additional Instructions: Scheduled Appointments?? Future Appointments ?No Future Appointments Scheduled Follow-Up Instructions ?? With: Address: When: cpe May 2023 with me Comments: PROVIDER SCHEDULE NOT IN APPOINTMENT REMINDER ADDED Diagnosis Encounter for health counseling related to travel; Other specified health status; Panic disorder [episodic paroxysmal anxiety] Medications: Please continue your medications until treatment is completed or stopped by your provider. Discuss any questions related to medications with your provider. Medications to Continue with No Changes [id number], [address], [place] [id number], [phone] Lorazepam (Ativan 1 mg oral tablet) 1 tablet By Mouth as needed before flying; as needed as needed for anxiety. Refills: 0. Next Dose: No Longer Take the Following Medications BusPIRone (busPIRone 7.5 mg oral tablet) 1 tab(s) Oral twice a day. Refills: 0. Escitalopram (escitalopram 10 mg oral tablet) TAKE 1 TABLET BY MOUTH DAILY. Escitalopram (escitalopram 10 mg oral tablet) 1 tab(s) Oral Daily for 30 Days. Needs to be seen forrefills. Refills: 0. HydrOXYzine (hydrOXYzine hydrochloride 50 mg oral tablet) 1 tab(s) Oral 4 times a day as needed foranxiety. May cause drowsiness. Refills: 1. Propranolol (propranolol 10 mg oral tablet) 1 tablet by mouth, 30-60 minutes before event; as needed Anxiety. Refills: 0. Allergy Info:?? Bactrim; penicillin; azithromycin Medications Given This Visit Future Orders ?No future orders Vital Signs Height 166.5 cm Weight 72.3 kg BMI 26.08 kg/m2 Blood Pressure 120 mm Hg/85 mm Hg Temperature Pulse Rate 68 bpm Respiratory Rate 02 Sat Mode of Delivery 97 %/Room air You can now view a summary of your hospital visit from the comfort of your home through a free online portal called [email or web address]. [email or web address] is a website that allows you to securely view your medical information including discharge summary, medications and follow-up visits. ??You can alsosend a secure electronic message to your doctor???s office to request appointments, renew medications or just ask a question. You can enroll at [email or web address] or register during your next office visit. [...] primary care provider, you may find a [facility] provider by calling [facility] [employer] at [phone]. For information about the plan of care [...] Team Personnel Name: Alexandro Morrison DO Position: [facility] Physician - Primary Care Member Role: PCP Address: Address: [address] [place] [address]- Care Team Related Persons Name: PT STATES, NO ONE
--- OUTSIDE RECORDS SUMMARY | 2023-10-02 19:25 | XMS_ITS | Continuity of Care Document ---
Author Organization [facility] Address [address] [place] [address]- Care Team Providers Care Ticket Dispenser Changer Name Role Phone Sahil FLOYD, Ranjan Daniels Primary Care Physician En[facility] [id number] Date(s): 06/22/20 - 07/22/20 [facility] [address] [place], [place] [address] Attending Physician: Martin Martinez Admitting Physician: AdmtrMartin Referring Physician: Admtr, ArNikko Allergies, Adverse Reactions, Alerts Substance Reaction Severity Status azithromycin Active penicillin Active Bactrim Active Medications diclofenac sodium 75 mg oral delayed release tablet 1 tablet = 75 mg, By Mouth, 2 times a day, # 60 tablet, 2 Refills, Maintenance, 07/09/20 10:18:00 EDT, EC Tablet, [facility] #[id number], Partial fill upon patient request if the prescription isfor a schedule II opioid drug., 166.5, cm, 07/09/20... Start Date: 07/09/20 Status: Ordered Malarone 250 mg-100 mg oral tablet See Instructions, 1 tablet by mouth daily, starting 1 to 2 days before entering endemic area and continuing for 7 days after return, # 30 each, 0 Refills, Acute 08/26/20 12:00:00 EDT, 06/23/20 10:38:00 EDT, Tablet, [id number], [place]... Start Date: 06/23/20 Stop Date: 08/26/20 Status: Ordered omeprazole 20 mg oral delayed release tablet 1 tablet = 20 mg, By Mouth, Daily, # 14 tablet, 0 Refills, Maintenance, 11/30/19 9:22:00 EDT, CR Tablet, [facility]/pharmacy #[id number], 166.5, cm, 11/30/19 8:12:00 EDT, Height Start Date: 11/30/19 Stop Date: 12/14/19 Status: Ordered propranolol 10 mg oral tablet See Instructions, PRN, 1 tablet by mouth, 30-60 minutes before event, # 20 tablet, Refills 0, Tot. Refills 0, Maintenance, Anxiety, 12/07/19 17:08:00 EDT, Instructions Replace Required Details, [facility], [facility]/pharmacy #[id number], 166... Start Date: 12/07/19 Status: Ordered Voltaren 1% topical gel 1 application, Topically, 4 times a day, PRN for pain, # 100 Gm, 0 Refills, Maintenance, 06/22/20 10:30:00 EDT, Gel, [facility] #[id number], Partial fill upon patient request if the prescriptionis for a schedule II opioid drug., 1 application To... Start Date: 06/22/20 Stop Date: 07/22/20 Status: Ordered Social History Social History Type Response Smoking Status Never (less than 100 in lifetime) entered on: 11/30/19 Sex
--- OUTSIDE RECORDS SUMMARY | 2023-10-02 19:25 | XMS_ITS | Continuity of Care Document ---
Author Organization [facility] Address [address] [place] [address]- Care Team Providers Care Stem Crusher Name Role Phone Delmi Carson NP Primary Care Physician En[place] [facility] [place] Date(s): 12/23/21 - 12/30/21 [facility] [address] [place] [address]- Attending Physician: Evaristo Goldberg MD Admitting Physician: Evaristo Goldberg MD Referring Physician: Delmi Carson NP Allergies, Adverse Reactions, Alerts Substance Reaction Severity Status azithromycin Active penicillin Active Bactrim Active Medications busPIRone 7.5 mg oral tablet 1 tablet = 7.5 mg, By Mouth, 2 times a day, # 60 tablet, 6 Refills, Maintenance, 05/10/21 12:23:00 EDT, [facility] #[id number], Partial fill upon patient request if the prescription is for a schedule II opioid drug., 166.5, cm, 05/10/21 11:12:00... Start Date: 05/10/21 Stop Date: 12/06/21 Status: Ordered escitalopram 10 mg oral tablet TAKE 1 TABLET BY MOUTH DAILY Start Date: 11/21/21 Status: Ordered hydrOXYzine hydrochloride 50 mg oral tablet 1 tablet = 50 mg, By Mouth, 4 times a day, PRN for anxiety, May cause drowsiness, # 40 tablet, 1 Refills, Maintenance, 05/10/21 12:23:00 EDT, Tablet, [facility] #[id number], Partial fill upon patient request if the prescription is for a schedule... Start Date: 05/10/21 Status: Ordered propranolol 10 mg oral tablet See Instructions, PRN, 1 tablet by mouth, 30-60 minutes before event, # 20 tablet, Refills 0, Tot. Refills 0, Maintenance, Anxiety, 12/07/19 17:08:00 EDT, Instructions Replace Required Details, [facility], [facility]/pharmacy #[id number], [address]... Start Date: 12/07/19 Status: Ordered Problem List Condition Confirmation Course Effective Dates Status Health St [facility] Informant TAVO (generalized anxiety disorder) Confirmed Active Panic disorder Confirmed Active Vital Signs Most recent to oldest [Reference Range]: 1 Height 166.5 cm (12/23/21 10:33 AM) Weight 72.6 kg (12/23/21 10:33 AM) Oxygen Saturation [94-100 %] 97 % (12/23/21 10:33 AM) Pulse Rate [55-90 bpm] 89 bpm (12/23/21 10:33 AM) Body Mass Index [18.5-24.99 kg/m2] 26.19 kg/m2 *H* (12/23/21 10:33 AM) Blood Pressure [90-138/55-84 mm Hg] 118/ 84mm Hg (12/23/21 10:33 AM) Mode of Delivery (Oxygen) Room air (12/23/21 10:33 AM) Blood pressure sites Arm, left (12/23/21 10:33 AM) Weight Obtained Via Standing scale (12/23/21 10:33 AM) Social History Social History Type Response Smoking Status Never (less than 100 in lifetime) entered on: 11/30/19 Sex Note * Mecca Pate: PERFORM, SIGN, VERIFY Event Display: Patient Education/Instruction Authored Date: [id number] [facility] Clinical Summary Name DIGNA WHITMAN Age 31 Years 1990 PCP Delmi Carson NP PCP Visit Date 12/23/2021 10:11:00 Additional Instructions: Scheduled Appointments?? Future Appointments ?*[facility] ?[address]??[place],??[place],??[address] ?Phone:??--?Fax:??-- ?Appt. Date:??02/07/2022?9:30 AM ?Scheduled Provider:??Evaristo Goldberg MD Follow-Up Instructions ?? With: Address: When: Evaristo Goldberg 02/07/2022 9:30 AM Comments: THE PATIENT WILL FOLLOW UP IN 6 WEEKS. Diagnosis Medications: Please continue your medications until treatment is completed or stopped by your provider. Discuss any questions related to medications with your provider. Medications to Continue with No Changes These medications were not printed or sent to your pharmacy BusPIRone (busPIRone 7.5 mg oral tablet) 1 tab(s) Oral twice a day for 30 Days. Refills: 6. Next Dose: Escitalopram (escitalopram 10 mg oral tablet) TAKE 1 TABLET BY MOUTH DAILY. Next Dose: HydrOXYzine (hydrOXYzine hydrochloride 50 mg oral tablet) 1 tab(s) Oral 4 times a day as needed foranxiety. May cause drowsiness. Refills: 1. Next Dose: Propranolol (propranolol 10 mg oral tablet) 1 tablet by mouth, 30-60 minutes before event; as needed Anxiety. Refills: 0. Next Dose: Allergy Info:?? Bactrim; penicillin; azithromycin Medications Given This Visit Future Orders ?No future orders Vital Signs Height 166.5 cm Weight 72.6 kg BMI 26.19 kg/m2 Blood Pressure 118 mm Hg/84 mm Hg Temperature Pulse Rate 89 bpm Respiratory Rate 02 Sat Mode of Delivery 97 %/Room air You can now view a summary of your hospital visit from the comfort of your home through a free online portal called [employer]. [facility] is a website that allows you to securely view your medical information including discharge summary, medications and follow-up visits. ??You can alsosend a secure electronic message to your doctor???s office to request appointments, renew medications or just ask a question. You can enroll at [email or web address] or register during your next office visit. [...] primary care provider, you may find a [facility] provider by calling [facility] [employer] at [phone]. For information about the plan of care including goals and instructions for your diagnosis, please see the patient education orders section of this document. Patient Education Materials?? The content of this educational material or handout may have been modified, supplemented, or adapted from its original content and format to support your individualized medical care. Patient Care team information Care Team Personnel Name: Delmi Carson NP Position: [facility] Associate Professional Member Role: PCP Address: Address: [address] [place] [address] [place] [address]- Care Team Related Persons Name: PT STATES, NO ONE
--- OUTSIDE RECORDS SUMMARY | 2023-10-02 19:25 | XMS_ITS | Continuity of Care Document ---
Author Organization [facility] Address [address] [place] [address]- Care Team Providers Care Diffusion Furnace Operator Name Role Phone Sahil FLOYD, Ranjan Daniels Primary Care Physician [phone] Encounter [facility] Date(s): 11/30/19 - 12/07/19 [facility] [address] [place] [address]- [facility] Encounter Diagnosis Chest pain(Discharge Diagnosis) - 12/01/19 Dry cough(Discharge Diagnosis) - 12/01/19 Encounter to establish care(Discharge Diagnosis) - 12/01/19 Left hip pain(Discharge Diagnosis) - 12/01/19 Attending Physician: Ranjan Baxter NP Allergies, Adverse Reactions, Alerts Substance Reaction Severity Status azithromycin Active penicillin Active Bactrim Active Medications omeprazole 20 mg oral delayed release tablet 1 tablet = 20 mg, By Mouth, Daily, # 14 tablet, 0 Refills, Maintenance, 11/30/19 9:22:00 EDT, CR Tablet, [facility] #[id number], 166.5, cm, 11/30/19 8:12:00 EDT, Height Start Date: 11/30/19 Stop Date: 12/14/19 Status: Ordered propranolol 10 mg oral tablet See Instructions, PRN, 1 tablet by mouth, 30-60 minutes before event, # 20 tablet, Refills 0, Tot. Refills 0, Maintenance, Anxiety, 12/07/19 17:08:00 EDT, Instructions Replace Required Details, [facility], [id number], [address]... Start Date: 12/07/19 Status: Ordered Problem List Diagnosis Diagnosis Type Effective Dates Health Status Cl inical Service Informant Chest pain Discharge Diagnosis 12/01/19 Dry cough Discharge Diagnosis 12/01/19 Encounter to establish care Discharge Diagnosis 12/01/19 Left hip pain Discharge Diagnosis 12/01/19 Vital Signs Most recent to oldest [Reference Range]: 1 Height 166.5 cm (11/30/19 8:12 AM) Weight 70.2 kg (11/30/19 8:12 AM) Oxygen Saturation [94-100 %] 97 % (11/30/19 8:12 AM) Pulse Rate [55-90 bpm] 65 bpm (11/30/19 8:12 AM) Body Mass Index [18.5-24.99] 25.32 *H* (11/30/19 8:12 AM) Blood Pressure [90-138/55-84 mm Hg] 136/ 82mm Hg (11/30/19 8:12 AM) Respiratory Rate [16-30 br/min] 20 br/mi n (11/30/19 8:12 AM) Blood pressure sites Arm, right (11/30/19 8:12 AM) Social History Social History Type Response Smoking Status Never (less than 100 in lifetime) entered on: 11/30/19 Sex
--- OUTSIDE RECORDS SUMMARY | 2023-10-02 19:25 | XMS_ITS | Continuity of Care Document ---
Author Organization [facility] Address [address] [place] [address]- Care Team Providers Care Gravity Manager Name Role Phone Alexandro Morrison DO Primary Care Physician [id number] Date(s[facility]23 - 07/29/23 [facility] [address] [place] [address]- Encounter Diagnosis Right elbow pain(Discharge Diagnosis) - 07/22/23 Persistent testicular pain(Discharge Diagnosis) - 07/22/23 Flank pain(Discharge Diagnosis) - 07/22/23 Attending Physician: Alexandro Morrison DO Referring Physician: Alexandro Morrison DO Allergies, Adverse Reactions, Alerts Substance Reaction Severity Status azithromycin Active penicillin Active Bactrim Active Medications Ativan 1 mg oral tablet See Instructions, PRN as needed for anxiety, 1 tablet By Mouth as needed before flying, # 20 tablet, 0 Refills, Acute 02/24/24 0:00:00 EST, 03/11/23 11:10:00 EST, Tablet, [facility] #[id number],Partial fill upon patient request if the prescripti... Start Date: 03/11/23 Stop Date: 02/24/24 Status: Ordered Problem List Condition Confirmation Course Effective Dates Status Health St atus Informant Runner's knee Confirmed Active Alcohol use Confirmed Active Flank pain Confirmed Active TAVO (generalized anxiety disorder) Confirmed Active Right tennis elbow Confirmed Active Right elbow pain Confirmed Active Left shoulder pain Confirmed Active Panic disorder Confirmed Active Travel advice encounter Confirmed Active Persistent testicular pain Confirmed Active Diagnosis Diagnosis Type Effective Dates Health Status Clinical Service Informant Right elbow pain Discharge Diagnosis 07/22/23 Persistent testicular pain Discharge Diagnosis 07/22/23 Flank pain Discharge Diagnosis 07/22/23 Vital Signs Most recent to oldest [Reference Range]: 1 Height 166.5 cm (07/22/23 10:55 AM) Weight 69 kg (07/22/23 10:55 AM) Oxygen Saturation [94-100 %] 98 % (07/22/23 10:55 AM) Pulse Rate [55-90 bpm] 79 bpm (07/22/23 10:55 AM) Body Mass Index [18.5-24.99 kg/m2] 24.89 kg/m2 (07/22/23 10:55 AM) Blood Pressure [90-138/55-84 mm Hg] 120/ 88mm Hg (07/22/23 10:55 AM) Weight Obtained Via Patient/family state d (07/22/23 10:55 AM) Social History Social History Type Response Smoking Status Never (less than 100 in lifetime) entered on: 11/30/19 Sex Note * Leslie Contreras: PERFORM Event Display: Patient Education/Instruction Authored Date: [id number] Ambulatory Adult Visit Summary [address] [address] Name: DIGNA WHITMAN : 1990?? Visit: 07/22/2023 10:40?? Ambulatory Visit Instructions ?? Your Care Team Primary Care Provider Alexandro Morrison DO? This Visit Provider Alexandro Morrison DO Your Diagnosis Right elbow pain Persistent testicular pain Flank pain Vitals Signs Pulse Rate: 79 bpm Height: 166.5 cm Systolic Blood Pressure: 120 mm Hg Weight: 69 kg Diastolic Blood Pressure:??88 mm Hg??High Body Mass Index: 24.89 kg/m2 Oxygen Saturation: 98 % Body surface area: 1.79 What to do next Scheduled Follow-Up Appointments Thursday 9:00 AM EDT ?? With: Alexandro Morrison DO Where: [address] [address]- Status: Pending Future Orders MRI Joint Ext Upper W/O Contrast Right, Routine, Reason for Exam: Pain/Trauma, medial elbow pain, Elbow, No-No Pacemaker or Neurostimulator, Once, *Est. 07/22/23, Order for Today US Retroperitoneum Comp, Routine, Reason for Exam: Other:, Bl flank pain, Once, *Est. 07/22/23, Order for Today Complete Urinalysis/Reflex Culture - Routine, Urine Clean Catch, Once, 07/22/23 11:17:00 EDT, Orderfor Today, [facility], Urine?? Comprehensive Metabolic Panel - Routine, Once, 07/22/23 11:17:00 EDT, Order for Today, [facility], Blood?? Medications The list below reflects the information in our records and provided by you today along with any changes made during this visit. Please continue your medications until treatment is completed or stopped by your provider. If this is different from the information you have or there are other questions,please contact the prescribing provider. What How Much When Why Instructions Unchanged Lorazepam (Ativan 1 mg oral tablet) See instructions Panic disorder 1 tablet By Mouth as needed before flying, As needed for as needed for anxiety ?? Test Performed Below is a partial list of the tests performed during your Visit. You may have had other tests and procedures not included in this list. Please discuss all test results with your provider. Complete Urinalysis/Reflex Culture?-- Results Pending -- Comprehensive Metabolic Panel?-- Results Pending -- You will be contacted within 72 hours with your results. Medications and Immunizations Administered Medications Given During Visit No medications given during this visit.?? Allergies (NKA means No Known Allergies) Bactrim azithromycin penicillin Common Emergency Awareness Tips IS IT A STROKE? Act FAST and Check for these signs: FACE Does the face look uneven? ARM Does one arm drift down? SPEECH Does their speech sound strange? TIME Call at any sign of stroke ?? Heart Attack Signs Chest discomfort: Most heart attacks involve discomfort in the center of the chest and lasts more than a few minutes, or goes away and comes back. It can feel like uncomfortable pressure, squeezing, fullness or pain. Discomfort in upper body: Symptoms can include pain or discomfort in one or both arms, back, neck, jaw or stomach. Shortness of breath: With or without discomfort. Other signs: Breaking out in a cold sweat, nausea, or lightheaded. Remember, MINUTES DO MATTER. If you experience any of these heart attack warning signs, call to get immediate medical attention! ?? Smoking can increase your chances of developing chronic health problems and can cause harmful effects to other family members in your house. If you smoke, you are strongly encouraged to quit. Please call [facility] at [phone] or [phone] (1177) or log in to [email or web address] for referrals to smoking cessation programs. ?? The National Suicide Prevention Hotline is available 15/09 if you or someone you know needs to find a reason to keep living. By calling 5-040-793-[employer] (8762) you'll be connected to a skilled, trained counselor at a crisis center in your area. [facility] Portal You can view and manage your care through the patient portal or by using a health care alyson of your choosing. [employer] is a website that allows you to securely view your medical information including your hospital discharge summary, office visit summaries, medications and follow-up visits. You can also request appointments, renew medications, and request access to your medical information using a health care alyson of your choosing, or just ask a question. You can enroll at [email or web address] or register during your next office visit. [facility], in keeping with [facility] guidance, no longer requires face masks for staff, patientsor visitors in most situations. Similiar to time spent indoors at other locations, there is the chance that you were exposed to repiratory viruses during your time with us (such as flu or COVID-19). If you develop symptoms concerning for a viral respiratory infection, please seek testing (and treatment if indicated) from your medical provider or home test kit. ?? Disclaimer: The information provided is of a general nature and is intended to be used in conjunction with the recommendations and advice of your health care practitioner. Every effort has been made to ensure that the information provided is accurate and complete at the time it is provided to you however, as your needs change, or, as new information becomes available, different or additional instructions may be required. ?? If you have questions, please consult with your primary care provider or pharmacist, as appropriate. This information is not intended to serve as substitution for assessment and evaluation by a qualified health care provider. If you do not have a primary care provider, you may find a [facility] provider by calling [facility] at [phone]. Patient Care team information Care Team Personnel Name: Alexandro Morrison DO Position: [facility] Physician - Primary Care Member Role: PCP Address: Address: [address] [place] [address]- Care Team Related Persons Name: PT STATES, NO ONE
--- OUTSIDE RECORDS SUMMARY | 2023-10-02 19:25 | XMS_ITS | Continuity of Care Document ---
Author Organization [facility] Address [address] [facility] [place] [address]- Care Team Providers Care Power Press Operator Name Role Phone Delmi Carson NP Primary Care Physician Encounter [facility] Date(s): 12/18/21 - 01/17/22 [facility] [address] [place] [address]- Attending Physician: Martin Martinez Admitting Physician: AdmMartin finley Referring Physician: AdmtrMartin Allergies, Adverse Reactions, Alerts Substance Reaction Severity Status azithromycin Active penicillin Active Bactrim Active Medications busPIRone 7.5 mg oral tablet 1 tablet = 7.5 mg, By Mouth, 2 times a day, # 60 tablet, 6 Refills, Maintenance, 05/10/21 12:23:00 EDT, [facility] #[id number], Partial fill upon patient request if the [...] 1 Refills, Maintenance, 05/10/21 12:23:00 EDT, Tablet, [facility] #[id number], Partial fill upon patient request if the prescription is for a schedule... Start Date: 05/10/21 Status: Ordered propranolol 10 mg oral tablet See Instructions, PRN, 1 tablet by mouth, 30-60 minutes before event, # 20 tablet, Refills 0, Tot. Refills 0, Maintenance, Anxiety, 12/07/19 17:08:00 EDT, Instructions Replace Required Details, [facility], [id number], 166... Start Date: 12/07/19 Status: Ordered Problem List Condition Confirmation Course Effective Dates Status Health St at[facility] Informant TAVO (generalized anxiety disorder) Confirmed Active Panic disorder Confirmed Active Social History Social History Type Response Smoking Status Never (less than 100 in lifetime) entered on: 11/30/19 Sex Patient Care team information Care Team Personnel Name: Delmi Carson NP Position: S PCO Associate Professional Member Role: PCP Address: Address: [address] [place] [address] [place] [address]- Care Team Related Persons Name: PT STATES, NO ONE
--- OUTSIDE RECORDS SUMMARY | 2023-10-02 19:25 | XMS_ITS | Continuity of Care Document ---
Author Organization [facility] Address [address] [place] [address]- Care Team Providers Care Speech Therapy Director Name Role Phone Sahil FLOYD, Ranjan Daniels Primary Care Physician Encounter [facility] [place] Date(s): 06/22/20 - 06/29/20 [facility] [address] [place] [address]- Encounter Diagnosis Hip pain, left(Discharge Diagnosis) - 06/23/20 Travel advice encounter(Discharge Diagnosis) - 06/23/20 Attending Physician: Sahil FLOYD, Ranjan Daniels Allergies, Adverse Reactions, Alerts Substance Reaction Severity Status azithromycin Active penicillin Active Bactrim Active Medications Malarone 250 mg-100 mg oral tablet See Instructions, 1 tablet by mouth daily, starting 1 to 2 days before entering endemic area and continuing for 7 days after return, # 30 each, 0 Refills, Acute 08/26/20 12:00:00 EDT, 06/23/20 10:38:00 EDT, Tablet, [facility] #[id number], Chanda... Start Date: 06/23/20 Stop Date: 08/26/20 Status: Ordered omeprazole 20 mg oral delayed release tablet 1 tablet = 20 mg, By Mouth, Daily, # 14 tablet, 0 Refills, Maintenance, 11/30/19 9:22:00 EDT, CR Tablet, [facility] #[id number], 166.5, cm, 11/30/19 8:12:00 EDT, Height Start Date: 11/30/19 Stop Date: 12/14/19 Status: Ordered propranolol 10 mg oral tablet See Instructions, PRN, 1 tablet by mouth, 30-60 minutes before event, # 20 tablet, Refills 0, Tot. Refills 0, Maintenance, Anxiety, 12/07/19 17:08:00 EDT, Instructions Replace Required Details, [facility], [facility] #[id number], 166... Start Date: 12/07/19 Status: Ordered Voltaren 1% topical gel 1 application, Topically, 4 times a day, PRN for pain, # 100 Gm, 0 Refills, Maintenance, 06/22/20 10:30:00 EDT, Gel, [facility] #[id number], Partial fill upon patient request if the prescriptionis for a schedule II opioid drug., 1 application To... Start Date: 06/22/20 Stop Date: 07/22/20 Status: Ordered Problem List Diagnosis Diagnosis Type Effective Dates Health Status Cl inical Service Informant Hip pain, left Discharge Diagnosis 06/23/20 Travel advice encounter Discharge Diagnosis 06/23/20 Vital Signs Most recent to oldest [Reference Range]: 1 Height 166.5 cm (06/22/20 10:16 AM) Weight 72.3 kg (06/22/20 10:16 AM) Oxygen Saturation [94-100 %] 97 % (06/22/20 10:16 AM) Pulse Rate [55-90 bpm] 80 bpm (06/22/20 10:16 AM) Body Mass Index [18.5-24.99] 26.08 *H* (06/22/20 10:16 AM) Blood Pressure [90-138/55-84 mm Hg] 126/ 83mm Hg (06/22/20 10:16 AM) Mode of Delivery (Oxygen) Room air (06/22/20 10:16 AM) Dry Weight 72.3 kg (06/22/20 10:16 AM) Weight Obtained Via Standing scale (06/22/20 10:16 AM) Social History Social History Type Response Smoking Status Never (less than 100 in lifetime) entered on: 11/30/19 Sex
--- OUTSIDE RECORDS SUMMARY | 2023-10-02 19:25 | XMS_ITS | Continuity of Care Document ---
Author Organization [facility] Address [address] [place] [address]- Care Team Providers Care 911 Dispatcher Name Role Phone Alexandro Morrison DO Primary Care Physician [phone] Encounter [facility] Date(s): 08/19/22 - 09/18/[address] [address] Allergies, Adverse Reactions, Alerts Substance Reaction Severity Status azithromycin Active penicillin Active Bactrim Active Medications Ativan 1 mg oral tablet See Instructions, PRN as needed for anxiety, 1 tablet By Mouth as needed before flying, # 5 tablet,0 Refills, Acute 02/24/24 0:00:00 EST, 08/15/22 8:06:00 EDT, [facility] #[id number], Partial fill upon patient request if the prescription... Start Date: 08/15/22 Stop Date: 02/24/24 Status: Ordered naproxen 500 mg oral tablet 1 tablet = 500 mg, By Mouth, 2 times a day, # 14 tablet, 0 Refills, Acute 02/24/24 0:00:00 EST, 09/17/22 10:54:00 EDT, Tablet, [facility] #[id number], Partial fill upon patient request if the prescription is for a schedule II opioid drug., 166.5,... Start Date: 09/17/22 Stop Date: 02/24/24 Status: Ordered Problem List Condition Confirmation Course Effective Dates Status Health St atus Informant Alcohol use Confirmed Active TAVO (generalized anxiety disorder) Confirmed Active Right tennis elbow Confirmed Active Panic disorder Confirmed Active Travel advice encounter Confirmed Active Social History Social History Type Response Smoking Status Never (less than 100 in lifetime) entered on: 10/7/20 Sex Patient Care team information Care Team Personnel Name: Alexandro Morrison DO Position: S Physician - Primary Care Member Role: PCP Address: Address: [address] [place] [address]- Care Team Related Persons Name: PT STATES, NO ONE
--- OUTSIDE RECORDS SUMMARY | 2023-10-02 19:25 | XMS_ITS | Continuity of Care Document ---
Author Organization [facility] Address [address] [place] [address]- Care Team Providers Care Magazine Designer Name Role Phone Not on Staff, PCP Primary Care Physician Unavail able Encounter [facility] [place] Date(s): 11/14/20 - 11/21/20 [facility] [address] [place] [id number] Attending Physician: Mega Chapman MD Admitting Physician: Mega Chapman MD Referring Physician: Sahil FLOYD, Ranjan Daniels Allergies, Adverse Reactions, Alerts Substance Reaction Severity Status azithromycin Active penicillin Active Bactrim Active Medications diclofenac sodium 75 mg oral delayed release tablet 1 tablet = 75 mg, By Mouth, 2 times a day, # 60 tablet, 2 Refills, Maintenance, 07/09/20 10:18:00 EDT, EC Tablet, [facility] #[id number], Partial fill upon patient request if the prescription isfor a schedule II opioid drug., 166.5, cm, 07/09/20... Start Date: 07/09/20 Status: Ordered omeprazole 20 mg oral delayed [...] 0 Refills, Maintenance, 06/22/20 10:30:00 EDT, Gel, [facility] #[id number], Partial fill upon patient request if the prescriptionis for a schedule II opioid drug., 1 application To... Start Date: 06/22/20 Stop Date: 07/22/20 Status: Ordered Social History Social History Type Response Smoking Status Never (less than 100 in lifetime) entered on: 11/30/19 Sex
--- OUTSIDE RECORDS SUMMARY | 2023-10-02 19:25 | XMS_ITS | Continuity of Care Document ---
Author Organization [facility] Address [address] [place] [address]- Care Team Providers Care Small Appliance Assembly Supervisor Name Role Phone Sahil FLOYD, Ranjan Daniels Primary Care Physician Encounter [facility] [place] Date(s[place] 07/09/20 - 07/16/20 [facility] [address] [place] [id number] Attending Physician: Mega Chapman MD Admitting Physician: Mega Chapman MD Referring Physician: Ranjan Baxter NP Allergies, Adverse Reactions, Alerts Substance Reaction Severity Status azithromycin Active penicillin Active Bactrim Active Medications diclofenac sodium 75 mg oral delayed release tablet 1 tablet = 75 mg, By Mouth, 2 times a day, # 60 tablet, 2 Refills, Maintenance, 07/09/20 10:18:00 EDT, EC Tablet, [facility] #[id number], Partial fill upon patient request if the [...] 08/26/20 12:00:00 EDT, 06/23/20 10:38:00 EDT, Tablet, [facility] #[id number], [place]... Start Date: 06/23/20 Stop Date: 08/26/20 Status: Ordered omeprazole 20 mg oral delayed release tablet 1 tablet = 20 mg, By Mouth, Daily, # 14 tablet, 0 Refills, Maintenance, 11/30/19 9:22:00 EDT, CR Tablet, [facility] #[id number], 166.5, cm, 11/30/19 8:12:00 EDT, Height Start Date: 11/30/19 Stop Date: 12/14/19 Status: Ordered propranolol 10 mg oral tablet See Instructions, PRN, 1 tablet by mouth, 30-60 minutes before event, # 20 tablet, Refills 0, Tot. Refills 0, Maintenance, Anxiety, 12/07/19 17:08:00 EDT, Instructions Replace Required Details, [facility], [facility] #[id number], 166... Start Date: 12/07/19 Status: Ordered Voltaren 1% topical gel 1 application, Topically, 4 times a day, PRN for pain, # 100 Gm, 0 Refills, Maintenance, 06/22/20 10:30:00 EDT, Gel, [facility] #[id number], Partial fill upon patient request if the prescriptionis for a schedule II opioid drug., 1 application To... Start Date: 06/22/20 Stop Date: 07/22/20 Status: Ordered Vital Signs Most recent to oldest [Reference Range]: 1 Height 166.5 cm (07/09/20 9:49 AM) Weight 70.2 kg (07/09/20 9:49 AM) Pulse Rate [55-90 bpm] 88 bpm (07/09/20 9:49 AM) Body Mass Index [18.5-24.99] 25.32 *H* (07/09/20 9:49 AM) Blood Pressure [90-138/55-84 mm Hg] 129/ 88mm Hg (07/09/20 9:49 AM) Blood pressure sites Arm, left (07/09/20 9:49 AM) Weight Obtained Via Standing scale (07/09/20 9:49 AM) Social History Social History Type Response Smoking Status Never (less than 100 in lifetime) entered on: 11/30/19 Sex
--- OUTSIDE RECORDS SUMMARY | 2023-10-02 19:25 | XMS_ITS | Continuity of Care Document ---
Author Organization [facility] Address [address] [place] [address]- Care Team Providers Care Test Borer Name Role Phone Alli FLOYD, Delmi Dawn Primary Care Physician Encounter [facility] [place] Date(s): 04/16/21 - 05/16/21 [facility] [address] [place] [address]- Allergies, Adverse Reactions, Alerts Substance Reaction Severity Status azithromycin Active penicillin Active Bactrim Active Medications busPIRone 7.5 mg oral tablet 1 tablet = 7.5 mg, By Mouth, 2 times a day, # 60 tablet, 6 Refills, Maintenance, 05/10/21 12:23:00 EDT, [facility] #[id number], Partial fill upon patient request if the prescription is for a schedule II opioid drug., 166.5, cm, 05/10/21 11:12:00... Start Date: 05/10/21 Stop Date: 12/06/21 Status: Ordered escitalopram 10 mg oral tablet 1 tablet = 10 mg, By Mouth, Daily, # 90 tablet, 3 Refills, Maintenance, 05/24/21 8:57:00 EDT, Tablet, [facility] #[id number], Partial fill upon patient request if the prescription is for a schedule II opioid drug., 166.5, cm, 05/10/21 11:12:00 ED... Start Date: 05/24/21 Stop Date: 09/21/21 Status: Ordered escitalopram 10 mg oral tablet 1 tablet = 10 mg, By Mouth, Daily, for 30 days, # 30 tablet, 1 Refills, Hard Stop 05/24/21 8:57:00 EDT, 03/25/21 8:57:00 EST, Tablet, [facility] #[id number], Partial fill upon patient request ifthe prescription is for a schedule II opioid drug.,... Start Date: 03/25/21 Stop Date: 05/24/21 Status: Ordered hydrOXYzine hydrochloride 50 mg oral tablet 1 tablet = 50 mg, By Mouth, 4 times a day, PRN for anxiety, May cause drowsiness, # 40 tablet, 1 Refills, Maintenance, 05/10/21 12:23:00 EDT, Tablet, [facility] #[id number], Partial fill upon patient request if the prescription is for a schedule... Start Date: 05/10/21 Status: Ordered propranolol 10 mg oral tablet See Instructions, PRN, 1 tablet by mouth, 30-60 minutes before event, # 20 tablet, Refills 0, Tot. Refills 0, Maintenance, Anxiety, 12/07/19 17:08:00 EDT, Instructions Replace Required Details, [facility], [facility] #[id number], 166... Start Date: 12/07/19 Status: Ordered Voltaren 1% topical gel 1 application, Topically, 4 times a day, PRN for pain, # 100 Gm, 0 Refills, Maintenance, 06/22/20 10:30:00 EDT, Gel, [facility] #[id number], Partial fill upon patient request if the [...]
[2023-10-02 19:26] LABS: MANUAL DIFF FLAG NO
--- OUTSIDE RECORDS SUMMARY | 2023-10-02 19:26 | XMS_ITS | Continuity of Care Document ---
Author Organization [facility] Address [address] [place] [address]- Care Team Providers Care Occupational Therapy Instructor Name Role Phone Alexandro Morrison DO Primary Care Physician Encounter [facility] [place] ACCT R [id number] Date(s): 10/23/22 - 10/30/22 [facility] [address] [place] [address]- Encounter Diagnosis Atypical chest pain(Discharge Diagnosis) - 10/23/22 Lightheadedness(Discharge Diagnosis) - 10/23/22 TAVO (generalized anxiety disorder)(Discharge Diagnosis) - 10/23/22 Encounter for screening for cardiovascular disorders(Discharge Diagnosis) - 10/23/22 Elevated BP without diagnosis of hypertension(Discharge Diagnosis) - 10/27/22 Attending Physician: Carli FLOYD, Marisela Dawn Allergies, Adverse Reactions, Alerts Substance Reaction Severity Status azithromycin Active penicillin Active Bactrim Active Medications Ativan 1 mg oral tablet See Instructions, PRN as needed for anxiety, 1 tablet By Mouth as needed before flying, # 5 tablet,0 Refills, Acute 02/24/24 0:00:00 EST, 10/22/22 10:32:00 EDT, Tablet, [facility][id number], Partial fill upon patient request if the prescriptio... Start Date: 10/22/22 Stop Date: 02/24/24 Status: Ordered Problem List Condition Confirmation Course Effective Dates Status Health St atus Informant Alcohol use Confirmed Active TAVO (generalized anxiety disorder) Confirmed Active Right tennis elbow Confirmed Active Panic disorder Confirmed Active Travel advice encounter Confirmed Active Diagnosis Diagnosis Type Effective Dates Health Status Clinical Service Informant Atypical chest pain Discharge Diagnosis 10/23/22 Lightheadedness Discharge Diagnosis 10/23/22 TAVO (generalized anxiety disorder) Discharge Diagnosis 10/23/22 Encounter for screening for cardiovascular disorders Discharge Diagnosis 10/23/22 Elevated BP without diagnosis of hypertension Discharge Diagnosis 10/27/22 Vital Signs Most recent to oldest [Reference Range]: 1 2 3 Height 166.5 cm (10/28/22 10:58 AM) 166.5 cm (10/23/22 3:33 PM) 166.5 cm (10/23/22 3:19 PM) Weight 69 kg (10/28/22 10:58 AM) 69 kg (10/23/22 3:19 PM) Oxygen Saturation [94-100 %] 98 % (10/23/22 3:19 PM) Pulse Rate [55-90 bpm] 60 bpm (10/23/22 3:19 PM) Body Mass Index [18.5-24.99 kg/m2] 24.89 kg/m2 (10/23/22 3:19 PM) Blood Pressure [90-138/55-84 mm Hg] 144/90mm Hg *H* (10/23/22 3:33 PM) 143/98mm Hg *H* (10/23/22 3:19 PM) Blood pressure sites Arm, left (10/23/22 3:33 PM) Arm, right (10/23/22 3:19 PM) Weight Obtained Via Standing scale (10/23/22 3:19 PM) Social History Social History Type Response Smoking Status Never (less than 100 in lifetime) entered on: 11/30/19 Sex Note * Adrianna Portillo: PERFORM, SIGN, VERIFY Event Display: Patient Education/Instruction Authored Date: [id number] [facility] *[facility] Clinical Summary Name DIGNA WHITMAN Age 32 Years 1990 PCP Alexandro Morrison DO PCP Visit Date 10/23/2022 15:12:00 Additional Instructions: Scheduled Appointments?? Future Appointments ?No Future Appointments Scheduled Follow-Up Instructions ?? Diagnosis Medications: Please continue your medications until treatment is completed or stopped by your provider. Discuss any questions related to medications with your provider. Medications to Continue with No Changes These medications were not printed or sent to your pharmacy Lorazepam (Ativan 1 mg oral tablet) 1 tablet By Mouth as needed before flying; as needed as needed for anxiety. Refills: 0. Next Dose: Allergy Info:?? Bactrim; penicillin; azithromycin Medications Given This Visit Future Orders ?No future orders Vital Signs Height 166.5 cm Weight 69 kg BMI 24.89 kg/m2 Blood Pressure 144 mm Hg/90 mm Hg Temperature Pulse Rate 60 bpm Respiratory Rate 02 Sat Mode of Delivery 98 %/ You can now view a summary of your hospital visit from the comfort of your home through a free online portal called [employer]. [employer] is a website that allows you to securely view your medical information including discharge summary, medications and follow-up visits. ??You can alsosend a secure electronic message to your doctor???s office to request appointments, renew medications or just ask a question. You can enroll at [email or web address] or register during your next office visit. [...] primary care provider, you may find a [facility] provider by calling [facility] [employer] Link at [phone]. [facility], in keeping with [facility] guidance, no longer requires face masks [...] Primary Care Member Role: PCP Address: Address: [address] [place] [address]- Care Team Related Persons Name: PT STATES, NO ONE
--- OUTSIDE RECORDS SUMMARY | 2023-10-02 19:26 | XMS_ITS | Continuity of Care Document ---
Author Organization [facility] Address [address] [facility] [place] [address]- Care Team Providers Care Trailer Tank Truck Driver Name Role Phone Alli FLOYD, Delmi Primary Care Physician [phone] [place] [facility]22[place]21 - 01/17/22 [facility] [address] [place] [address]- Attending Physician: Rachele Blum Admitting Physician: Rachele Blum Referring Physician: Delmi Carson NP Allergies, Adverse Reactions, Alerts Substance Reaction Severity Status azithromycin Active penicillin Active Bactrim Active Medications busPIRone 7.5 mg oral tablet 1 tablet = 7.5 mg, By Mouth, 2 times a day, # 60 tablet, 6 Refills, Maintenance, 05/10/21 12:23:00 EDT, [facility] #[id number], Partial fill upon patient request if the [...] 1 Refills, Maintenance, 05/10/21 12:23:00 EDT, Tablet, [facility] #[id number], Partial fill upon patient request if the [...] Team Personnel Name: Delmi Carson NP Position: [facility] PCO Associate Professional Member Role: PCP Address: Address: [address] [place] [address] [place] [address]- Care Team Related Persons Name: PT STATES, NO ONE
--- OUTSIDE RECORDS SUMMARY | 2023-10-02 19:26 | XMS_ITS | Continuity of Care Document ---
Author Organization [facility] Address [address] [place] [address]- Care Team Providers Care Products Mechanical Design Engineer Name Role Phone Alexandro Morrison DO Primary Care Physician [phone] [place] [facility]17[place] - 09/24/22 [facility] [address] [place] [address]- Encounter Diagnosis Right tennis elbow(Discharge Diagnosis) - 09/17/22 Attending Physician: Alexandro Morrison DO Allergies, Adverse Reactions, Alerts Substance Reaction Severity Status azithromycin Active penicillin Active Bactrim Active Medications Ativan 1 mg oral tablet See Instructions, PRN as needed for anxiety, 1 tablet By Mouth as needed before flying, # 5 tablet,0 Refills, Acute 02/24/24 0:00:00 EST, 08/15/22 8:06:00 EDT, Tablet, [facility] #[id number], Partial fill upon patient request if the prescription... Start Date: 08/15/22 Stop Date: 02/24/24 Status: Ordered naproxen 500 mg oral tablet 1 tablet = 500 mg, By Mouth, 2 times a day, # 14 tablet, 0 Refills, Acute 02/24/24 0:00:00 EST, 09/17/22 10:54:00 EDT, Tablet, [facility] #[id number], Partial fill upon patient request if the [...] Dates Health Status Cl inical Service Informant Right tennis elbow Discharge Diagnosis 09/17/22 Vital Signs Most recent to oldest [Reference Range]: 1 Height 166.5 cm (09/17/22 10:44 AM) Weight 72.1 kg (09/17/22 10:44 AM) Oxygen Saturation [94-100 %] 97 % (09/17/22 10:44 AM) Pulse Rate [55-90 bpm] 72 bpm (09/17/22 10:44 AM) Body Mass Index [18.5-24.99 kg/m2] 26.01 kg/m2 *H* (09/17/22 10:44 AM) Blood Pressure [90-138/55-84 mm Hg] 108/ 70mm Hg (09/17/22 10:44 AM) Mode of Delivery (Oxygen) Room air (09/17/22 10:44 AM) Blood pressure sites Arm, left (09/17/22 10:44 AM) Weight Obtained Via Standing scale (09/17/22 10:44 AM) Social History Social History Type Response Smoking Status Never (less than 100 in lifetime) entered on: 11/30/19 Sex Note * Rosaura Rader: PERFORM, SIGN, VERIFY Event Display: Patient Education/Instruction Authored Date: [id number] [facility] *[facility] Clinical Summary Name DIGNA WHITMAN Age 32 Years 1990 PCP Alexandro Morrison DO PCP Visit Date 09/17/2022 10:38:00 Additional Instructions: Scheduled Appointments?? Future Appointments ?No Future Appointments Scheduled Follow-Up Instructions ?? Diagnosis Lateral epicondylitis, right elbow Medications: Please continue your medications until treatment is completed or stopped by your provider. Discuss any questions related to medications with your provider. New Medications [facility] #[id number], [address] [place] [id number], [phone] Naproxen (naproxen 500 mg oral tablet) 1 tab(s) Oral twice a day. Refills: 0. Next Dose: Medications to Continue with No Changes These medications were not printed or sent to your pharmacy Lorazepam (Ativan 1 mg oral tablet) 1 tablet By Mouth as needed before flying; as needed as needed for anxiety. Refills: 0. Next Dose: Allergy Info:?? Bactrim; penicillin; azithromycin Medications Given This Visit Future Orders ?No future orders Vital Signs Height 166.5 cm Weight 72.1 kg BMI 26.01 kg/m2 Blood Pressure 108 mm Hg/70 mm Hg Temperature Pulse Rate 72 bpm Respiratory Rate 02 Sat Mode of Delivery 97 %/Room air You can now view a summary of your hospital visit from the comfort of your home through a free online portal called [employer] is a website that allows you to securely view your medical information including discharge summary, medications and follow-up visits. ??You can alsosend a secure electronic message to your doctor???s office to request appointments, renew medications or just ask a question. You can enroll at [email or web address] or register during your next [...] primary care provider, you may find a [facility] provider by calling [facility] [employer] Link at [phone]. For information about the plan of care [...] Primary Care Member Role: PCP Address: Address: [address] [place] [address]- [place] Care Team Related Persons Name: PT STATES, NO ONE
--- OUTSIDE RECORDS SUMMARY | 2023-10-02 19:26 | XMS_ITS | Continuity of Care Document ---
Author Organization [facility] Address [address] [place] [address]- Care Team Providers Care Merchandise Displayer Name Role Phone Delmi Carson NP Primary Care Physician [phone] [place] [facility] [place] 11/21/21 - 12/21/21 [facility] [address] [place] [address]- Attending Physician: AdmMartin finley Admitting Physician: [id number] Referring Physician: Admtr, Ar8 Allergies, Adverse Reactions, Alerts Substance Reaction Severity [...] tablet, 6 Refills, Maintenance, 05/10/21 12:23:00 EDT, [facility][id number], Partial fill upon patient request if the [...] opioid drug. Start Date: 05/22/21 Status: Ordered escitalopram 10 mg oral tablet TAKE 1 TABLET BY MOUTH DAILY Start Date: 11/21/21 Status: Ordered hydrOXYzine hydrochloride 50 mg oral tablet 1 tablet = 50 mg, By Mouth, 4 times a day, PRN for anxiety, May cause drowsiness, # 40 tablet, 1 Refills, Maintenance, 05/10/21 12:23:00 EDT, Tablet, [facility] #[id number], Partial fill upon patient request if the [...] Replace Required Details, [facility], [id number], [address]... Start Date: 12/07/19 Status: Ordered Problem List Condition Confirmation Course Effective Dates Status Health St atus Informant TAVO (generalized anxiety disorder) Confirmed Active Panic disorder Confirmed Active Social History Social History Type Response Smoking Status Never (less than 100 in lifetime) entered on: 11/30/19 Sex Patient Care team information Personnel Name: Delmi Carson NP Address: Address: [address] [place] [address] [place], [place] [address]
--- OUTSIDE RECORDS SUMMARY | 2023-10-02 19:26 | XMS_ITS | Continuity of Care Document ---
Author Organization [facility] Address [address] [place] [address]- Care Team Providers Care Trim Setter Name Role Phone Alexandro Morrison DO Primary Care Physician [phone] [id number] [address] [place], [place] [address] Encounter Diagnosis Panic disorder(Discharge Diagnosis) - 10/22/22 Attending Physician: Carli ASSOCIATE PROFESSOR OF CHEMISTRY, Marisela Dawn Allergies, Adverse Reactions, Alerts Substance Reaction Severity Status azithromycin Active penicillin Active Bactrim Active Medications Ativan 1 mg oral tablet See Instructions, PRN as needed for anxiety, 1 tablet By Mouth as needed before flying, # 5 tablet,0 Refills, Acute 02/24/24 0:00:00 EST, 10/22/22 10:32:00 EDT, Tablet, [facility] #[id number], Partial fill upon patient request if the prescriptio... Start Date: 10/22/22 Stop Date: 02/24/24 Status: Ordered Problem List Condition Confirmation Course Effective Dates Status Health St atus Informant Alcohol use Confirmed Active TAVO (generalized anxiety disorder) Confirmed Active Right tennis elbow Confirmed Active Panic disorder Confirmed Active Travel advice encounter Confirmed Active Diagnosis Diagnosis Type Effective Dates Health Status Cl inical Service Informant Panic disorder Discharge Diagnosis 10/22/22 Non-Specified Social History Social History Type Response Smoking Status Never (less than 100 in lifetime) entered on: 11/30/19 Sex Patient Care team information Care Team Personnel Name: Alexandro Morrison DO Position: [facility] Physician - Primary Care Member Role: PCP Address: Address: [address] [place] [id number] Care Team Related Persons Name: PT STATES, NO ONE
--- OUTSIDE RECORDS SUMMARY | 2023-10-02 19:26 | XMS_ITS | Continuity of Care Document ---
Author Organization [facility] Address [address] [place] [address]- Care Team Providers Care Kennel Manager Name Role Phone Delmi Carson NP Primary Care Physician [place] [facility] - 02/01/21 [facility] [address] [place] [address]- Encounter Diagnosis Panic disorder [episodic paroxysmal anxiety](Discharge Diagnosis) - 01/25/21 Attending Physician: Delmi Carson NP Allergies, Adverse Reactions, Alerts Substance Reaction Severity Status azithromycin Active penicillin Active Bactrim Active Medications busPIRone 7.5 mg oral tablet 1 tablet = 7.5 mg, By Mouth, 2 times a day, # 60 tablet, 1 Refills, Maintenance, 01/25/21 11:40[id number], Partial fill upon patient request if the prescription is for a schedule II opioid drug., 166.5, cm, 01/25/21 11:00:00... Start Date: 01/25/21 Stop Date: 03/26/21 Status: Ordered diclofenac sodium 75 mg oral delayed release tablet 1 tablet = 75 mg, By Mouth, 2 times a day, # 60 tablet, 2 Refills, Maintenance, 07/09/20 10:18:00 EDT, EC Tablet, [facility] #[id number], Partial fill upon patient request if the prescription isfor a schedule II opioid drug., 166.5, cm, 07/09/20... Start Date: 07/09/20 Status: Ordered escitalopram 5 mg oral tablet See Instructions, Take by mouth Week 1: 1/2 tab daily for 1 week 1 tab daily thereafter, # 30 tablet, 1 Refills, Maintenance, 01/25/21 11:38:00 EST, Tablet, [facility] #[id number], Partial fill upon patient request if the prescription is for a... Start Date: 01/25/21 Status: Ordered hydrOXYzine hydrochloride 50 mg oral tablet See Instructions, PRN for anxiety, 1-2 tablet By Mouth Daily as needed for anxiety, # 30 tablet, 0 Refills, Acute 02/08/21 11:41:00 EST, 01/25/21 11:41:00 EST, Tablet, [facility] #[id number], Partial fill upon patient request if the prescription... Start Date: 01/25/21 Stop Date: 02/08/21 Status: Ordered omeprazole 20 mg oral delayed release tablet 1 tablet = 20 mg, By Mouth, Daily, # 14 tablet, 0 Refills, Maintenance, 11/30/19 9:22:00 EDT, CR Tablet, [facility] #[id number], 166.5, cm, 11/30/19 8:12:00 EDT, Height Start Date: 11/30/19 Stop Date: 12/14/19 Status: Ordered propranolol 10 mg oral tablet See Instructions, PRN, 1 tablet by mouth, 30-60 minutes before event, # 20 tablet, Refills 0, Tot. Refills 0, Maintenance, Anxiety, 12/07/19 17:08:00 EDT, Instructions Replace Required Details, [facility], [facility] #[id number], [address]... Start Date: 12/07/19 Status: Ordered Voltaren 1% topical gel 1 application, Topically, 4 times a day, PRN for pain, # 100 Gm, 0 Refills, Maintenance, 06/22/20 10:30:00 EDT, Gel, [facility] #[id number], Partial fill upon patient request if the prescriptionis for a schedule II opioid drug., 1 application To... Start Date: 06/22/20 Stop Date: 07/22/20 Status: Ordered Problem List Diagnosis Diagnosis Type Effective Dates Health Status Clinical Service Informant Panic disorder [episodic paroxysmal anxiety] Discharge Diagnosis 01/25/21 Vital Signs Most recent to oldest [Reference Range]: 1 Height 166.5 cm (01/25/21 11:00 AM) Weight 71.5 kg (01/25/21 11:00 AM) Oxygen Saturation [94-100 %] 98 % (01/25/21 11:00 AM) Pulse Rate [55-90 bpm] 72 bpm (01/25/21 11:00 AM) Body Mass Index [18.5-24.99] 25.79 *H* (01/25/21 11:00 AM) Blood Pressure [90-138/55-84 mm Hg] 115/ 79mm Hg (01/25/21 11:00 AM) Respiratory Rate [16-30 br/min] 18 br/mi n (01/25/21 11:00 AM) Blood pressure sites Arm, left (01/25/21 11:00 AM) Weight Obtained Via Standing scale (01/25/21 11:00 AM) Social History Social History Type Response Smoking Status Never (less than 100 in lifetime) entered on: 11/30/19 Sex
--- OUTSIDE RECORDS SUMMARY | 2023-10-02 19:26 | XMS_ITS | Continuity of Care Document ---
Author Organization [facility] Address [address] [place] [address]- Care Team Providers Care Exhibit Technician Name Role Phone Alli FLOYD, Delmi Dawn Primary Care Physician [place] [facility] 02[place] [facility] [address] [place] [address] Attending Physician: Martin Martinez Admitting Physician: AdmMartin finley Referring Physician: AdmtrMartin Allergies, Adverse Reactions, Alerts Substance Reaction Severity Status azithromycin Active penicillin Active Bactrim Active Medications busPIRone 7.5 mg oral tablet 1 tablet = 7.5 mg, By Mouth, 2 times a day, # 60 tablet, 1 Refills, Maintenance, 01/25/21 11:40:[id number], Partial fill upon patient request if the prescription is for a schedule II opioid drug., 166.5, cm, 01/25/21 11:00:00... Start Date: 01/25/21 Stop Date: 03/26/21 Status: Ordered diclofenac sodium 75 mg oral delayed release tablet 1 tablet = 75 mg, By Mouth, 2 times a day, # 60 tablet, 2 Refills, Maintenance, 07/09/20 10:18:00 EDT, EC Tablet, [facility] #[id number], Partial fill upon patient request if the prescription isfor a schedule II opioid drug., 166.5, cm, 07/09/20... Start Date: 07/09/20 Status: Ordered escitalopram 5 mg oral tablet See Instructions, Take by mouth Week 1: 1/2 tab daily for 1 week 1 tab daily thereafter, # 30 tablet, 1 Refills, Maintenance, 01/25/21 11:38:00 EST, Tablet, [facility] #[id number], Partial fill upon patient request if the prescription is for a... Start Date: 01/25/21 Status: Ordered omeprazole 20 mg oral delayed release tablet 1 tablet = 20 mg, By Mouth, Daily, # 14 tablet, 0 Refills, Maintenance, 11/30/19 9:22:00 EDT, CR Tablet, [facility] #[id number], 166.5, cm, 11/30/19 8:12:00 EDT, Height Start Date: 11/30/19 Stop Date: 12/14/19 Status: Ordered propranolol 10 mg oral tablet See Instructions, PRN, 1 tablet by mouth, 30-60 minutes before event, # 20 tablet, Refills 0, Tot. Refills 0, Maintenance, Anxiety, 12/07/19 17:08:00 EDT, Instructions Replace Required Details, [facility], [facility] #1972, 166... Start Date: 12/07/19 Status: Ordered Voltaren 1% topical gel 1 application, Topically, 4 times a day, PRN for pain, # 100 Gm, 0 Refills, Maintenance, 06/22/20 10:30:00 EDT, Gel, [facility] #[id number], Partial fill upon patient request if the prescriptionis for a schedule II opioid drug., 1 application To... Start Date: 06/22/20 Stop Date: 07/22/20 Status: Ordered Social History Social History Type Response Smoking Status Never (less than 100 in lifetime) entered on: 11/30/19 Sex
--- OUTSIDE RECORDS SUMMARY | 2023-10-02 19:26 | XMS_ITS | Continuity of Care Document ---
Author Organization [facility] Address [address] [place] [address]- Care Team Providers Care Employee Counselor Name Role Phone Not on Staff, PCP Primary Care Physician Unavail able Encounter [facility] Date(s): 08/27/19 - 08/27/[address] [address] [facility] Discharge Disposition: A-D/C Home Attending Physician: Dee Dee Romero DO Admitting Physician: Dee Dee Romero DO Referring Physician: Not on Staff, Referring MD Allergies, Adverse Reactions, Alerts Substance Reaction Severity Status azithromycin Active penicillin Active Bactrim Active Results Radiology Reports * Exam Date Time Procedure Performing Provider Status 08/27/19 6:25 PM Chest Portable Emily Ospina; Auth ( Verified) Notes: (Chest Portable) Reason For Exam: Chest Pain;Other: RESULT: Chest Portable Chest Portable INDICATION: Chest Pain; intermittent L lateral neck and chest pain x1mo and dizziness, cough and SOB x2 days. COMPARISON: 07/07/2017. FINDINGS: LINES AND TUBES: None. LUNGS AND PLEURA: Clear lungs. Normal pulmonary vascularity. No pleural effusion. No pneumothorax. HEART, MEDIASTINUM AND EUNICE: Heart is normal in size. Normal mediastinal and hilar contour. BONES AND SOFT TISSUES: No acute abnormality. IMPRESSION: No acute abnormality. I have personally reviewed the images and I agree with this report. WSN: [id number] Ordering Physician: Michelle Godfrey Dictated By: Bety Zamudio DO Dictated Date/Time: 08/27/19 6:42 pm Reviewed By: Sha Joiner MD Signed By: Sha Joiner MD Signed Date/Time: 08/27/19 6:47 pm Transcribed By: CSB Transcribed Date/Time: 08/27/19 6:38 pm Vital Signs Most recent to oldest [Reference Range]: 1 2 3 Oxygen Saturation [94-100 %] 100 % (08/27/19 6:17 PM) 97 % (08/27/19 4:54 PM) 100 % (08/27/19 4:30 PM) Pulse Rate [55-90 bpm] 66 bpm (08/27/19 6:17 PM) 68 bpm (08/27/19 4:54 PM) 66 bpm (08/27/19 4:30 PM) Blood Pressure [90-138/55-84 mm Hg] 138/89mm Hg (08/27/19 6:17 PM) 142/92mm Hg *H* (08/27/19 4:54 PM) Respiratory Rate [16-30 br/min] 16 br/min (08/27/19 6:17 PM) 20 br/min (08/27/19 4:54 PM) Temperature [96.8-100.4 DegF] 98.0 DegF (08/27/19 6:17 PM) 97.8 DegF (08/27/19 4:54 PM) Mode of Delivery (Oxygen) Room air (08/27/19 6:17 PM) Room air (08/27/19 4:54 PM) Blood pressure sites Arm, left (08/27/19 6:17 PM) Arm, left (08/27/19 4:54 PM) Temperature Route Oral (08/27/19 6:17 PM) Oral (08/27/19 4:54 PM)
--- OUTSIDE RECORDS SUMMARY | 2023-10-02 19:26 | XMS_ITS | Continuity of Care Document ---
Author Organization [facility] Address [address] [place] [address]- Care Team Providers Care Dag Coater Name Role Phone Alexandro Morrison DO Primary Care Physician [place] [facility] [place]s): 10/23/22 - 11/22/22 [facility] [address] [address] Attending Physician: Martin Martinez Admitting Physician: Admtr, Martin Referring Physician: Admtr, ArNikko Allergies, Adverse Reactions, Alerts Substance Reaction Severity Status azithromycin Active penicillin Active Bactrim Active Medications Ativan 1 mg oral tablet See Instructions, PRN as needed for anxiety, 1 tablet By Mouth as needed before flying, # 5 tablet,0 Refills, Acute 02/24/24 0:00:00 EST, 10/22/22 10:32:00 EDT, Tablet, [facility] #[id number], Partial fill upon patient request if the [...] Primary Care Member Role: PCP Address: Address: [address] [place] [id number] Care Team Related Persons Name: PT STATES, NO ONE
--- OUTSIDE RECORDS SUMMARY | 2023-10-02 19:26 | XMS_ITS | Continuity of Care Document ---
Author Organization [facility] Address [address] [place] [address]- Care Team Providers Care Clasp Machine Operator Name Role Phone Alli FLOYD, Delmi Bell Primary Care Physician Encounter [facility] [place] Date(s): 10/29/21 - 11/28/21 [facility] [address] [place] [address]- Allergies, Adverse Reactions, Alerts Substance Reaction Severity [...] tablet, 6 Refills, Maintenance, 05/10/21 12:23:00 EDT, [email or web address] #[id number], Partial fill upon patient request if the [...] 1 Refills, Maintenance, 05/10/21 12:23:00 EDT, Tablet, [email or web address] #[id number], Partial fill upon patient request if the [...] Personnel Name: Delmi Carson NP Address: Address: [address] [place] [address] [place] [place], [place] [address]
--- OUTSIDE RECORDS SUMMARY | 2023-10-02 19:26 | XMS_ITS | Continuity of Care Document ---
Author Organization [facility] Address [address] [place] [address]- Care Team Providers Care Shower Doors And Panels Fabricator Name Role Phone Alexandro Morrison DO Primary Care Physician [phone] Encounter [facility] [place] Date(s): 08/05/23 - 09/04/23 [facility] [address] [place] [address]- Allergies, Adverse Reactions, Alerts Substance Reaction Severity Status azithromycin Active penicillin Active Bactrim Active Medications Ativan 1 mg oral tablet See Instructions, PRN as needed for anxiety, 1 tablet By Mouth as needed before flying, # 20 tablet, 0 Refills, Acute 02/24/24 0:00:00 EST, 03/11/23 11:10:00 EST, Tablet, [facility] #[id number],Partial fill upon patient request if the prescripti... Start Date: 03/11/23 Stop Date: 02/24/24 Status: Ordered Ativan 1 mg oral tablet See Instructions, PRN as needed for anxiety, 1 tablet By Mouth as needed before flying, # 10 tablet, 0 Refills, Maintenance, 08/12/23 7:16:00 EDT, Tablet, [facility] #[id number], Partial fill upon patient request if the prescription is for a sche... Start Date: 08/12/23 Status: Ordered Problem List Condition Confirmation Course Effective Dates Status Health St atus Informant Runner's knee Confirmed Active Alcohol use Confirmed Active Flank pain Confirmed Active TAVO (generalized anxiety disorder) Confirmed Active Right tennis elbow Confirmed Active Right elbow pain Confirmed Active Left shoulder pain Confirmed Active Panic disorder Confirmed Active Travel advice encounter Confirmed Active Persistent testicular pain Confirmed Active Social History Social History Type Response Smoking Status Never (less than 100 in lifetime) entered on: 10/7/20 Sex Patient Care team information Care Team Personnel Name: Alexandro Morrison DO Position: S Physician - Primary Care Member Role: PCP Address: Address: [address] [place] [address]- Care Team Related Persons Name: PT STATES, NO ONE
--- OUTSIDE RECORDS SUMMARY | 2023-10-02 19:26 | XMS_ITS | Continuity of Care Document ---
Author Organization [facility] Address [address] [address]- Care Team Providers Care Assembly Leader Name Role Phone Sahil FLOYD, Ranjan Daniels Primary Care Physician Encounter [facility] [place] Date(s): 01/11/20 - 02/10/20 [facility] [address] [address]- Attending Physician: Martin Martinez Admitting Physician: AdmMartin [...] #1972, 166... Start Date: 12/07/19 Status: Ordered Social History Social History Type Response Smoking Status Never (less than 100 in lifetime) entered on: 11/30/19 Sex
--- OUTSIDE RECORDS SUMMARY | 2023-10-02 19:26 | XMS_ITS | Continuity of Care Document ---
Author Organization [facility] Address [address] [place] [address]- Care Team Providers Care Neurological Surgeon Name Role Phone Alexandro Morrison DO Primary Care Physician Encounter [facility] [place] Date(s): 09/17/22 - 10/17/22 [facility] [address] [place] [address]- Attending Physician: Martin Martinez Admitting Physician: Martin Martinez Referring Physician: AdmtrMartin Allergies, Adverse Reactions, Alerts Substance Reaction Severity Status azithromycin Active penicillin Active Bactrim Active Medications Ativan 1 mg oral tablet See Instructions, PRN as needed for anxiety, 1 tablet By Mouth as needed before flying, # 5 tablet,0 Refills, Acute 02/24/24 0:00:00 EST, 08/15/22 8:06:00 EDT, Tablet, [facility] #[id number], Partial fill upon patient request if the prescription... Start Date: 08/15/22 Stop Date: 02/24/24 Status: Ordered naproxen 500 mg oral tablet 1 tablet = 500 mg, By Mouth, 2 times a day, # 14 tablet, 0 Refills, Acute 02/24/24 0:00:00 EST, 09/17/22 10:54:00 EDT, Tablet, [facility] #[id number], Partial fill upon patient request if the [...] Team Personnel Name: Alexandro Morrison DO Position: [facility] Physician - Primary Care Member Role: PCP Address: Address: [address] [place] [address]- Care Team Related Persons Name: PT STATES, NO ONE
--- OUTSIDE RECORDS SUMMARY | 2023-10-02 19:26 | XMS_ITS | Continuity of Care Document ---
Author Organization [facility] Address [address] [place] [address]- Care Team Providers Care Manager Transportation Planning Name Role Phone Sahil FLOYD, Ranjan Daniels Primary Care Physician [phone] Encounter [facility] [place] Date(s): 11/01/19 - 12/01/19 [facility] [address] [place] [address]- [facility] Allergies, Adverse Reactions, Alerts Substance Reaction Severity Status azithromycin Active penicillin Active Bactrim Active Medications omeprazole 20 mg oral delayed release tablet 1 tablet = 20 mg, By Mouth, Daily, # 14 tablet, 0 Refills, Maintenance, 11/30/19 9:22:00 EDT, CR Tablet, [id number], 166.5, cm, 11/30/19 8:12:00 EDT, Height Start Date: 11/30/19 Stop Date: 12/14/19 Status: Ordered Social History Social History Type Response Smoking Status Never (less than 100 in lifetime) entered on: 11/30/19 Sex
--- OUTSIDE RECORDS SUMMARY | 2023-10-02 19:26 | XMS_ITS | Continuity of Care Document ---
Author Organization [facility] Address [address] [place] [address]- Care Team Providers Care Glass Enamel Mixer Name Role Phone Sahil FLOYD, Ranjan Daniels Primary Care Physician [place] [facility] [place] 01/05/20 - 02/04/20 [facility] [address] [place] [address]- Allergies, Adverse Reactions, Alerts Substance Reaction Severity [...]
--- OUTSIDE RECORDS SUMMARY | 2023-10-02 19:26 | XMS_ITS | Continuity of Care Document ---
Author Organization [facility] Address [address] [place] [address]- Care Team Providers Care Checker Name Role Phone Alexandro Morrison DO Primary Care Physician Encounter [facility] [place] Date(s): 08/05/23 - 09/04/23 [facility] [address] [place] [address]- Allergies, Adverse Reactions, Alerts Substance Reaction Severity Status azithromycin Active penicillin Active Bactrim Active Medications Ativan 1 mg oral tablet See Instructions, PRN as needed for anxiety, 1 tablet By Mouth as needed before flying, # 20 tablet, 0 Refills, Acute 02/24/24 0:00:00 EST, 03/11/23 11:10:00 EST, Tablet, [facility] #[id number],Partial fill upon patient request if the prescripti... Start Date: 03/11/23 Stop Date: 02/24/24 Status: Ordered Ativan 1 mg oral tablet See Instructions, PRN as needed for anxiety, 1 tablet By Mouth as needed before flying, # 10 tablet, 0 Refills, Maintenance, 08/12/23 7:16:00 EDT, Tablet, [facility] #[id number], Partial fill upon patient request if the [...] Primary Care Member Role: PCP Address: Address: [address] [place] [address]- Care Team Related Persons Name: PT STATES, NO ONE
--- OUTSIDE RECORDS SUMMARY | 2023-10-02 19:26 | XMS_ITS | Continuity of Care Document ---
Author Organization [facility] Address [address] [place] [address]- Care Team Providers Care Track Car Operator Name Role Phone Delmi Carson NP Primary [id number] [address] [place] [address]- Attending Physician: Evaristo Goldberg MD Admitting Physician: Evaristo Goldberg MD Referring Physician: Delmi Carson NP Allergies, Adverse Reactions, Alerts Substance Reaction Severity Status azithromycin Active penicillin Active Bactrim Active Medications busPIRone 7.5 mg oral tablet 1 tablet = 7.5 mg, By Mouth, 2 times a day, # 60 tablet, 6 Refills, Maintenance, 05/10/21 12:23:00 EDT, [facility] #[id number], Partial fill upon patient request if the [...] 1 Refills, Maintenance, 05/10/21 12:23:00 EDT, Tablet, [facility] #[id number], Partial fill upon patient request if the [...] Team Personnel Name: Delmi Carson NP Position: [facility]O Associate Professional Member Role: PCP Address: Address: [address] [place] [address] [place] [address]- Care Team Related Persons Name: PT STATES, NO ONE
--- OUTSIDE RECORDS SUMMARY | 2023-10-02 19:26 | XMS_ITS | Continuity of Care Document ---
Author Organization [facility] Address [address] [place] [address]- Care Team Providers Care Pulp Making Plant Operator Name Role Phone Sahil FLOYD, Ranjan Daniels Primary Care Physician [phone] Encounter [facility] [place] Date(s): 08/20/20 - 09/19/20 [facility] [address] [place] [address] Attending Physician: AdmMartin finley Admitting Physician: Admtr, Martin Referring Physician: Admtr, Ar8 Allergies, Adverse Reactions, Alerts Substance Reaction Severity Status azithromycin Active penicillin Active Bactrim Active Medications diclofenac sodium 75 mg oral delayed release tablet 1 tablet = 75 mg, By Mouth, 2 times a day, # 60 tablet, 2 Refills, Maintenance, 07/09/20 10:18:00 EDT, EC Tablet, [facility] #[id number], Partial fill upon patient request if the [...] 0 Refills, Maintenance, 06/22/20 10:30:00 EDT, Gel, [facility][id number], Partial fill upon patient request if the prescriptionis for a schedule II opioid drug., 1 application To... Start Date: 06/22/20 Stop Date: 07/22/20 Status: Ordered Social History Social History Type Response Smoking Status Never (less than 100 in lifetime) entered on: 11/30/19 Sex
--- OUTSIDE RECORDS SUMMARY | 2023-10-02 19:26 | XMS_ITS | Continuity of Care Document ---
Author Organization [facility] Address [address] [place] [address]- Care Team Providers Care Residential Builder Name Role Phone Sahil FLOYD, Ranjan Daniels Primary Care Physician En[facility] [place] Date(s): 11/30/19 - 12/30/19 [facility] [address] [place] [address]- Attending Physician: Martin Martinez Admitting Physician: AdmtrMartin Referring Physician: AdmtrMartin Allergies, Adverse Reactions, Alerts [...]
--- OUTSIDE RECORDS SUMMARY | 2023-10-02 19:26 | XMS_ITS | Continuity of Care Document ---
Author Organization [facility] Address [address] [address]- Care Team Providers Care Training Lead Name Role Phone Sahil FLOYD, Ranjan Daniels Primary Care Physician [place] [facility] [place] 12/22/19 [facility] [address] [address]- [place] Attending Physician: Sahil FLOYD, Ranjan Daniels Admitting Physician: Sahil FLOYD, Ranjan Daniels Referring Physician: Sahil FLOYD, Ranjan Daniels Allergies, [...]
--- OUTSIDE RECORDS SUMMARY | 2023-10-02 19:26 | XMS_ITS | Continuity of Care Document ---
Author Organization [facility] Address [address] [place] [address]- Care Team Providers Care Letterset Press Set Up Operator Name Role Phone Delmi Carson NP Primary Care Physician [place] [facility] [place]25[place] 04/01/21 [facility] [address] [place] [address]- Encounter Diagnosis TAVO (generalized anxiety disorder)(Discharge Diagnosis) - 03/25/21 Panic disorder(Discharge Diagnosis) - 03/25/21 Heavy alcohol use(Discharge Diagnosis) - 03/25/21 Attending Physician: Delmi Carson NP Allergies, Adverse Reactions, Alerts Substance Reaction Severity Status azithromycin Active penicillin Active Bactrim Active Medications busPIRone 7.5 mg oral tablet 1 tablet = 7.5 mg, By Mouth, 2 times a day, # 60 tablet, 1 Refills, Maintenance, 01/25/21 11:40:[id number], Partial fill upon patient request if the prescription is for a schedule II opioid drug., 166.5, cm, 01/25/21 11:00:00... Start Date: 01/25/21 Stop Date: 03/26/21 Status: Ordered escitalopram 10 mg oral tablet 1 tablet = 10 mg, By Mouth, Daily, # 30 tablet, 1 Refills, Maintenance, 03/25/21 8:57:00 EST, [id number], Partial fill upon patient request if the prescription is for a schedule II opioid drug., 166.5, cm, 03/25/21 8:20:00 EST... Start Date: 03/25/21 Stop Date: 05/24/21 Status: Ordered hydrOXYzine hydrochloride 50 mg oral tablet 1 tablet = 50 mg, By Mouth, 4 times a day, PRN for anxiety, May cause drowsiness, # 40 tablet, 0 Refills, Maintenance, 03/25/21 8:57:00 EST, Tablet, [facility] #[id number], Partial fill upon patient request if the prescription is for a schedule I... Start Date: 03/25/21 Status: Ordered propranolol 10 mg oral tablet See Instructions, PRN, 1 tablet by mouth, 30-60 minutes before event, # 20 tablet, Refills 0, Tot. Refills 0, Maintenance, Anxiety, 12/07/19 17:08:00 EDT, Instructions Replace Required Details, [facility], [facility] #[id number], 166... Start Date: 12/07/19 Status: Ordered Voltaren 1% topical gel 1 application, Topically, 4 times a day, PRN for pain, # 100 Gm, 0 Refills, Maintenance, 06/22/20 10:30:00 EDT, Gel, [facility][id number], Partial fill upon patient request if the prescriptionis for a schedule II opioid drug., 1 application To... Start Date: 06/22/20 Stop Date: 07/22/20 Status: Ordered Problem List Condition Effective Dates Status Health Status Inform ant TAVO (generalized anxiety disorder)(Confirmed) Active Panic disorder(Confirmed) Active Diagnosis Diagnosis Type Effective Dates Health Status Cl inical Service Informant TAVO (generalized anxiety disorder) Discharge Diagnosis 03/25/21 Panic disorder Discharge Diagnosis 03/25/21 Heavy alcohol use Discharge Diagnosis 03/25/21 Vital Signs Most recent to oldest [Reference Range]: 1 Height 166.5 cm (03/25/21 8:20 AM) Weight 72.0 kg (03/25/21 8:20 AM) Body Mass Index [18.5-24.99] 25.97 *H* (03/25/21 8:20 AM) Weight Obtained Via Patient/family state d (03/25/21 8:20 AM) Social History Social History Type Response Smoking Status Never (less than 100 in lifetime) entered on: 11/30/19 Sex
--- OUTSIDE RECORDS SUMMARY | 2023-10-02 19:26 | XMS_ITS | Continuity of Care Document ---
Author Organization [facility] Address [address] [facility] [place] [address]- Care Team Providers Care Typewriter Mechanic Name Role Phone Alli FLOYD, Delmi Primary Care Physician En[place] [facility] [place] Date(s): 02/07/22 - 03/09/22 [facility] [address] [place] [address]- Attending Physician: Martin Martinez Admitting Physician: AdmtrMartin Referring Physician: AdmtrMartin Allergies, Adverse Reactions, Alerts Substance Reaction Severity Status azithromycin Active penicillin Active Bactrim Active Medications busPIRone 7.5 mg oral tablet 1 tablet = 7.5 mg, By Mouth, 2 times a day, # 60 tablet, 6 Refills, Maintenance, 05/10/21 12:23:00 EDT, [facility] #[id number], Partial fill upon patient request if the [...] 1 Refills, Maintenance, 05/10/21 12:23:00 EDT, Tablet, [facility] #[id number], Partial fill upon patient request if the prescription is for a schedule... Start Date: 05/10/21 Status: Ordered propranolol 10 mg oral tablet See Instructions, PRN, 1 tablet by mouth, 30-60 minutes before event, # 20 tablet, Refills 0, Tot. Refills 0, Maintenance, Anxiety, 12/07/19 17:08:00 EDT, Instructions Replace Required Details, [facility], [id number], 166... Start Date: 12/07/19 Status: Ordered Problem [...] Associate Professional Member Role: PCP Address: Address: [address] [place] [address] [place] [address]- Care Team Related Persons Name: PT STATES, NO ONE
--- OUTSIDE RECORDS SUMMARY | 2023-10-02 19:26 | XMS_ITS | Continuity of Care Document ---
Author Organization [facility] Address [address] [place] [address]- Care Team Providers Care Vmware Systems Administrator Name Role Phone Sahil FLOYD, Ranjan Daniels Primary Care Physician Encounter [facility] [place] Date(s): 07/18/20 - 09/19/20 [facility] [address] [place] [address] Attending Physician: Mega Chapman MD Admitting Physician: Mega Chapman MD Referring Physician: Ranjan Baxter NP Allergies, Adverse Reactions, Alerts Substance Reaction Severity Status azithromycin Active penicillin Active Bactrim Active Medications diclofenac sodium 75 mg oral delayed release tablet 1 tablet = 75 mg, By Mouth, 2 times a day, # 60 tablet, 2 Refills, Maintenance, 07/09/20 10:18:00 EDT, EC Tablet, [facility] #[id number], Partial fill upon patient request if the [...] 0 Refills, Maintenance, 06/22/20 10:30:00 EDT, Gel, [facility] #[id number], Partial fill upon patient request if the prescriptionis for a schedule II opioid drug., 1 application To... Start Date: 06/22/20 Stop Date: 07/22/20 Status: Ordered Social History Social History Type Response Smoking Status Never (less than 100 in lifetime) entered on: 11/30/19 Sex
--- OUTSIDE RECORDS SUMMARY | 2023-10-02 19:26 | XMS_ITS | Continuity of Care Document ---
Author Organization [facility] Address [address] [place] [address]- Care Team Providers Care Certified Registered Nurse Practitioner Name Role Phone Sahil FLOYD, Ranjan Daniels Primary Care Physician Encounter [facility] [place] Date(s): 11/03/19 - 12/03/19 [facility] [address] [place] [address]- [facility] Allergies, Adverse Reactions, Alerts Substance Reaction Severity [...]
--- OUTSIDE RECORDS SUMMARY | 2023-10-02 19:26 | XMS_ITS | Continuity of Care Document ---
Author Organization [facility] Address [address] [place] [address]- Care Team Providers Care Stone Carver Name Role Phone Alli FLOYD, Delmi Dawn Primary Care Physician En[place] [facility] [place] Date(s): 01/09/21 - 01/16/21 [facility] [address] [place] [address] Attending Physician: Mega Chapman MD Admitting Physician: Mega Chapman MD Referring Physician: Not on Staff, Referring MD Allergies, Adverse Reactions, Alerts Substance Reaction Severity Status azithromycin Active penicillin Active Bactrim Active Medications diclofenac sodium 75 mg oral delayed release tablet 1 tablet = 75 mg, By Mouth, 2 times a day, # 60 tablet, 2 Refills, Maintenance, 07/09/20 10:18:00 EDT, EC Tablet, [facility] #[id number], Partial fill upon patient request if the prescription isfor a schedule II opioid drug., 166.5, cm, 07/09/20... Start Date: 07/09/20 Status: Ordered omeprazole 20 mg oral delayed release tablet 1 tablet = 20 mg, By Mouth, Daily, # 14 tablet, 0 Refills, Maintenance, 11/30/19 9:22:00 EDT, CR Tablet, [facility] #[id number], 166.5, cm, 11/30/19 8:12:00 EDT, Height Start Date: 11/30/19 Stop Date: 12/14/19 Status: Ordered propranolol 10 mg oral tablet See Instructions, PRN, 1 tablet by mouth, 30-60 minutes before event, # 20 tablet, Refills 0, Tot. Refills 0, Maintenance, Anxiety, 12/07/19 17:08:00 EDT, Instructions Replace Required Details, [facility], [facility] #1972, 166... Start Date: 12/07/19 Status: Ordered Voltaren 1% topical gel 1 application, Topically, 4 times a day, PRN for pain, # 100 Gm, 0 Refills, Maintenance, 06/22/20 10:30:00 EDT, Gel, [facility] #[id number], Partial fill upon patient request if the prescriptionis for a schedule II opioid drug., 1 application To... Start Date: 06/22/20 Stop Date: 07/22/20 Status: Ordered Social History Social History Type Response Smoking Status Never (less than 100 in lifetime) entered on: 11/30/19 Sex
--- OUTSIDE RECORDS SUMMARY | 2023-10-02 19:26 | XMS_ITS | Continuity of Care Document ---
Author Organization [facility] Address [address] [place] [address]- Care Team Providers Care Table Machine Operator Name Role Phone Alexandro Morrison DO Primary Care Physician En[place] [facility] [place] Date(s): 03/11/23 - 04/10/23 [facility] [address] [place] [address] us Attending Physician: Martin Martinez Admitting Physician: AdmMartin finley Referring Physician: AdmtrMartin Allergies, Adverse Reactions, Alerts Substance Reaction Severity Status azithromycin Active penicillin Active Bactrim Active Medications Ativan 1 mg oral tablet See Instructions, PRN as needed for anxiety, 1 tablet By Mouth as needed before flying, # 20 tablet, 0 Refills, Acute 02/24/24 0:00:00 EST, 03/11/23 11:10:00 EST, Tablet, [facility] #[id number],Partial fill upon patient request if the prescripti... [...] Primary Care Member Role: PCP Address: Address: [address] [place] [address] Care Team Related Persons Name: PT STATES, NO ONE
--- OUTSIDE RECORDS SUMMARY | 2023-10-02 19:26 | XMS_ITS | Continuity of Care Document ---
Author Organization [facility] Address [address] [place] [address]- Care Team Providers Care Video Production Assistant Name Role Phone Alli FLOYD, Delmi Bell Primary Care Physician [place] [facility] [place] [facility] [address] [place] [address]- Encounter Diagnosis Right testicular pain(Discharge Diagnosis) - 11/21/21 Attending Physician: Rolando Rousseau MD Allergies, Adverse Reactions, Alerts Substance Reaction [...] tablet, 6 Refills, Maintenance, 05/10/21 12:23:00 EDT, [facility] #[id number], Partial fill upon patient request if the [...] 1 Refills, Maintenance, 05/10/21 12:23:00 EDT, Tablet, [facility] #[id number], Partial fill upon patient request if the [...] Instructions Replace Required Details, [facility], [facility]/pharmacy #[id number], [address]... Start Date: 12/07/19 Status: Ordered Problem List Condition Confirmation Course Effective Dates Status Health St atus Informant TAVO (generalized anxiety disorder) Confirmed Active Panic disorder Confirmed Active Diagnosis Diagnosis Type Effective Dates Health Status Clinical Service Informant Right testicular pain Discharge Diagnosis 11/21/21 Vital Signs Most recent to oldest [Reference Range]: 1 Height 166.5 cm (11/21/21 11:18 AM) Weight 72.72 kg (11/21/21 11:18 AM) Oxygen Saturation [94-100 %] 97 % (11/21/21 11:18 AM) Pulse Rate [55-90 bpm] 76 bpm (11/21/21 11:18 AM) Body Mass Index [18.5-24.99 kg/m2] 26.23 kg/m2 *H* (11/21/21 11:18 AM) Blood Pressure [90-138/55-84 mm Hg] 119/ 81mm Hg (11/21/21 11:18 AM) Respiratory Rate [16-30 br/min] 16 br/mi n (11/21/21 11:18 AM) Blood pressure sites Arm, right (11/21/21 11:18 AM) Weight Obtained Via Patient/family state d (11/21/21 11:18 AM) Social History Social History Type Response Smoking Status Never (less than 100 in lifetime) entered on: 11/30/19 Sex Patient Care team information Personnel Name: Delmi Carson NP Address: Address: [address] [place] [address] [address]
[2023-10-02 19:27] LABS: Basophils Percent Auto 0.6 % (0-2); Eosinophils Absolute Auto 0.1 X10*3/uL (0.0-0.4); Eosinophils Percent Auto 1.7 % (0-4); Hematocrit 44.1 % (42.0-52.0); Hemoglobin 15.7 g/dl (14.0-18.0); Imm Gran Abs Auto 0.02 X10*3/uL (0.00-0.03); Imm Gran Pct Auto 0.3 % (0.0-0.4); Lymphocytes Absolute Auto 1.5 X10*3/uL (1.2-4.9); Lymphocytes Percent Auto 20.6 % (20-40); Mean Corpuscular HGB Conc 35.6 g/dl (31.0-36.0); Mean Corpuscular Hemoglobin 31.4 pg (27.0-33.0); Mean Corpuscular Volume 88.2 fL (80.0-98.0); Mean Platelet Volume 11.4 fL (9.4-12.4); Monocytes Absolute Auto 0.7 X10*3/uL (0.1-1.2); Monocytes Percent Auto 9.2 % (2-11); Neutrophils Absolute Auto 4.8 x10*3/uL (2.0-8.3); Neutrophils Percent Auto 67.6 % (45-73); Platelet Count 200 X10*3/uL (160-400); Red Cell Distribution Width 13.1 % (11.0-16.0); White Blood Count 7.1 X10*3/uL (4.8-10.8)
--- OUTSIDE RECORDS SUMMARY | 2023-10-02 19:27 | XMS_ITS | Continuity of Care Document ---
Author Organization [facility] Address [address] [place] [address]- Care Team Providers Care Recruitment Internship Name Role Phone Alexandro Morrison DO Primary Care Physician [phone] Encounter [facility] [place] Date(s): 10/20/22 - 11/19/22 [facility] [address], [place] [address] Allergies, Adverse Reactions, Alerts Substance Reaction Severity Status azithromycin Active penicillin Active Bactrim Active Medications Ativan 1 mg oral tablet See Instructions, PRN as needed for anxiety, 1 tablet By Mouth as needed before flying, # 5 tablet,0 Refills, Acute 02/24/24 0:00:00 EST, 10/22/22 10:32:00 EDT, Tablet, [facility] #[id number], Partial fill upon patient request if the [...] Care Member Role: PCP Address: Address: [address] [place] [id number] Care Team Related Persons Name: PT STATES, NO ONE
[2023-10-02 19:42] LABS: Alanine Aminotransferase 104 U/L (0-40); Albumin Level 4.7 g/dL (3.5-5.0); Alkaline Phosphatase 53 U/L (39-117); Anion Gap 12 (12-20); Aspartate Amino Transferase 42 U/L (5-37); Bilirubin Direct 0.1 mg/dL (0.0-0.5); Bilirubin Total 0.5 mg/dL (0.0-1.0); Blood Urea Nitrogen 17 mg/dL (9-16); Calcium 10.2 mg/dL (8.4-10.2); Carbon Dioxide 25 mmol/L (22-29); Chloride 110 mmol/L (96-108); Creatinine Clr Calc Pharmacy 79.5; Estimated Glomerular Filt Rate > 60; Glucose Random 88 mg/dL (60-115); INTERNATIONAL NORM RATIO 0.9 (0.9-1.1); Lipase 19 U/L (8-78); Magnesium 2.2 mg/dL (1.6-2.6); Prothrombin Time 11.4 SEC (11.1-13.3); Sodium 143 mmol/L (135-145); Total Protein 7.5 g/dL (6.5-8.0)
[2023-10-02 19:50] LABS: Troponin-I High Sensitivity < 2.7 ng/L (<3.5-35.0)
[2023-10-02 20:04] LABS: Influenza A PCR NEGATIVE (Negative); Influenza B PCR NEGATIVE (Negative); Resp Syncy Virus RNA Qual PCR NEGATIVE (Negative); SARS COV2 PCR INHOUSE NEGATIVE (Negative)
[2023-10-02 23:55] VITALS: BP 140/97; PULSE 64; RESP 18; TEMP 36.9; O2SAT 99
[2023-10-03 00:26] LABS: Troponin-I High Sensitivity < 2.7 ng/L (<3.5-35.0)
[2023-10-03 02:00] VITALS: BP 141/96; PULSE 66; RESP 16; TEMP 36.7; O2SAT 98
[2023-10-03 04:00] VITALS: BP 123/86; PULSE 55; RESP 18; TEMP 36.6; O2SAT 98
[2023-10-03 04:33] VITALS: BP 123/86; PULSE 55; RESP 18; TEMP 36.6; O2SAT 98
== END 2023-10-03 04:34 | disposition home or self-care (01) ==
PROVIDERS: Physician Assistant Medical; Emergency Provider Emergency Medicine; PCP Family Medicine
DX: R41.0 Disorientation, unspecified (principal); R20.0 Anesthesia of skin; R42 Dizziness and giddiness; R07.9 Chest pain, unspecified; Z03.818 Encounter for observation for suspected exposure to other biological agents ruled out; Z87.891 Personal history of nicotine dependence; Z79.899 Other long term (current) drug therapy
CPT/HCPCS: 0241U; 36415; 80048; 80076; 83690; 83735; 84484; 85025; 85610; 93005; 99284

== ENCOUNTER → 2023-10-02 18:39 | Outpatient (BNV) | payer OTHER, SELFPAY | PROVIDERS: Emergency Provider Emergency Medicine; PCP Family Medicine; Visit Provider Internal Medicine Cardiovascular Disease | DX: R07.9 Chest pain, unspecified (principal) | CPT/HCPCS: 93010 ==

== ENCOUNTER 2024-03-25 20:02 | Emergency (ER) | payer OTHER, SELFPAY ==
--- NOTE | ~2024-03-25 | XR_ITS ---
CLINICAL HISTORY: tachycardia 2 view chest x-ray Comparison: 10/17/2022 Findings: No consolidation or effusion. Normal size heart. No acute fracture. IMPRESSION: 1. No acute findings. This document has been electronically signed by: Hardeep Hough MD on 03/25/2024 21:22:39
--- NOTE | 2024-03-25 20:03 | ECG_ITS ---
Test Reason : cp Blood Pressure : */* mmHG Vent. Rate : 145 BPM Atrial Rate : 145 BPM P-R Int : 144 ms QRS Dur : 86 ms QT Int : 332 ms P-R-T Axes : 48 16 54 degrees QTcB Int : 515 ms Sinus tachycardia Nonspecific ST and T wave abnormality Abnormal ECG When compared with ECG of 02-Oct-2023 18:39, Vent. rate has increased by 69 bpm Referred By: Berkley Moraes Electronically Signed By: OLIVE HWANG
--- NOTE | 2024-03-25 20:09 | ED_ITS ---
HPI - Chest Pain General Chief Complaint: Chest Pain Stated Complaint: chest pain Time Seen by Provider: 03/25/24 21:23 Source: patient Mode of arrival: ambulatory Limitations: no limitations History of Present Illness ED Provider: HPI narrative: Patient is 33 years old had edibles at 17:00 around 18:00 noticed left thumb pain and going to the chest radiating to the face came here with sinus tachycardia 150 beats per minute with increased anxiety improved after lorazepam Related Data Previous Rx's ?Medication ?Instructions ?Recorded ondansetron 4 mg disintegrating 4 mg PO Q6-8H PRN nausea and 10/12/21 tablet vomiting #15 tabs Allergies Allergy/AdvReac Type Severity Reaction Status Date / Time amoxicillin [AMOXICILLIN] Allergy Unknown HIVES Verified 03/25/24 20:15 azithromycin [From ZITHROMAX] Allergy Unknown HIVES, Verified 03/25/24 20:15 MUSCLE SPASMS sulfamethoxazole Allergy Unknown HIVES Verified 03/25/24 20:15 [From BACTRIM] trimethoprim [From BACTRIM] Allergy Unknown HIVES Verified 03/25/24 20:15 Review of Systems 2 Review of Systems: Yes all other systems are reviewed and are negative [facility] Social History Social History Alcohol intake: former Patient Tobacco Use Status: Former Tobacco user Smoked in Last 30 Days: No Use of substances other than those prescribed or required for medical reasons: Yes Substance Use Type: Marijuana Advance Directives: No Advance Directives Information Provided: No Do you have a plan to hurt others: No Plan Physical Exam 2 Vital Signs: Vital Signs: Last Vital Signs Temp 98.4 F 03/25/24 22:47 Pulse 97 03/25/24 22:47 Resp 14 03/25/24 22:47 BP 139/93 H 03/25/24 22:47 Pulse Ox 97 03/25/24 22:47 O2 Del Method Room Air 03/25/24 22:47 BMI result Body Mass Index 25.8 Appearance: Alert. Oriented X3. No acute distress. Eyes: PERRLA, No Nystagmus ENT: Pharynx normal. Oral Mucosa moist Neck: Normal inspection. Neck supple. CVS: Normal heart rate and rhythm. Pulses normal. Respiratory: No respiratory distress. Equal air entry bilateral, no wheezing/rales/rhonchi Abdomen: Soft and nontender. Bowel sounds are present, no mass palpable, no CVA tenderness Skin: Skin warm and dry. Normal skin color. Normal skin turgor. Extremities: No lower extremity edema. No calf tenderness Neuro: Oriented X 3. No motor deficit. No sensory deficit.No cerebellar signs , cranial nerves II-XII intact Course Course Course Narrative: This is a rapid medical exam. Defer additional HPI, ROS, PE to primary provider. 33-year-old male here with chest pain. Quite tachycardic and anxious in triage with a heart rate of 145. Brought her directly into bed -Eric Moraes APRN Medications Administered Discontinued Medications Generic Name Dose Route Start Last Admin Trade Name Freq PRN Reason Stop Dose Admin Sodium Chloride 1,000 mls @ 999 mls/hr 03/25/24 21:00 03/25/24 21:51 Ns IV 03/25/24 22:00 Infused .Q1H1M HIEN Infusion Lorazepam 1 mg 03/25/24 20:51 03/25/24 20:55 Lorazepam 2 Mg/Ml Vial IVPUSH 03/25/24 20:52 1 mg ONCE ONE Administration Medical Decision Making Medical Decision Making [facility] Narrative: Patient has increased anxiety with tachycardia improved after Ativan and IV fluids discharge patient home Lab Data [facility] Lab Attestation statement: I reviewed the patient's lab results. 03/25/24 20:14 03/25/24 20:14 Labs: Lab Results 03/25/24 Range/Units 20:14 WBC 10.8 (4.8-10.8) X10*3/uL RBC 4.99 (4.60-5.80) X10*6/uL Hgb 15.6 (14.0-18.0) g/dl Hct 42.5 (42.0-52.0) % MCV 85.2 (80.0-98.0) fL MCH 31.3 (27.0-33.0) pg MCHC 36.7 H (31.0-36.0) g/dl RDW 12.0 (11.0-16.0) % Plt Count 272 D (160-400) X10*3/uL MPV 11.9 (9.4-12.4) fL Immature Gran % (Auto) 0.3 (0.0-0.4) % Neut % (Auto) 48.7 (45-73) % Lymph % (Auto) 38.4 (20-40) % [place] % (Auto) 11.0 (2-11) % Eos % (Auto) 1.1 (0-4) % Baso % (Auto) 0.5 (0-2) % Lymph # (Auto) 4.2 (1.2-4.9) X10*3/uL [place] # (Auto) 1.2 (0.1-1.2) X10*3/uL Eos # (Auto) 0.1 (0.0-0.4) X10*3/uL Baso # (Auto) 0.1 (0.0-0.2) X10*3/uL Abs Immat Gran (auto) 0.03 (0.00-0.03) X10*3/uL Absolute Neuts (auto) 5.3 (2.0-8.3) x10*3/uL Absolute Nucleated RBC 0.000 (0.0-0.012) X10*3/uL Nucleated RBC % (auto) 0.0 (0.0-0.2) /100WBC Sodium 143 (135-145) mmol/L Potassium 3.2 L (3.3-5.1) mmol/L Chloride 111 H (96-108) mmol/L Carbon Dioxide 18 L (22-29) mmol/L Anion Gap 17 (12-20) BUN 18 H (9-16) mg/dL Creatinine 1.21 (0.5-1.4) mg/dL Estim Creat Clear Calc 76.8 Estimated GFR > 60 Random Glucose 106 (60-115) mg/dL Calcium 9.7 (8.4-10.2) mg/dL Magnesium 1.9 (1.6-2.6) mg/dL Total Bilirubin 0.6 (0.0-1.0) mg/dL Direct Bilirubin 0.2 (0.0-0.5) mg/dL AST 42 H (5-37) U/L ALT 83 H (0-40) U/L Alkaline Phosphatase 55 (39-117) U/L Troponin I High Sens < 2.7 (<3.5-35.0) ng/L Total Protein 7.8 (6.5-8.0) g/dL Albumin 4.7 (3.5-5.0) g/dL TSH 0.90 (0.32-4.0) uIU/mL Independent Interpretation I performed an independent interpretation of an: EKG Interpretation: Sinus tachycardia heart rate 145 beats per minute normal interval normal axis no acute STT wave changes no acute ischemia Discharge Plan Discharge Clinical Impression: Atypical chest pain, Palpitations Patient Disposition: Home, Self-Care Instructions: Chest Pain (ED), Heart Palpitations (ED) Additional Instructions: Drink plenty of fluids your chest pain is likely from palpitation rest at home possible you have anxiety Prescriptions: No Action ondansetron 4 mg tablet,disintegrating 4 mg PO Q6-8H PRN (Reason: nausea and vomiting) Qty: 15 0RF Interventions: ED Discharge Assessment Last Done: 03/25/24 22:47 Discharge Date/Time: 03/25/24 22:53 Print Language: Lao
[2024-03-25 20:13] VITALS: BP 151/105; PULSE 145; RESP 20; TEMP 36.8; O2SAT 98; BMI 25.8
[2024-03-25 20:19] LABS: MANUAL DIFF FLAG NO
[2024-03-25 20:20] LABS: Basophils Absolute Auto 0.1 X10*3/uL (0.0-0.2); Basophils Percent Auto 0.5 % (0-2); Eosinophils Absolute Auto 0.1 X10*3/uL (0.0-0.4); Eosinophils Percent Auto 1.1 % (0-4); Hematocrit 42.5 % (42.0-52.0); Hemoglobin 15.6 g/dl (14.0-18.0); Imm Gran Abs Auto 0.03 X10*3/uL (0.00-0.03); Imm Gran Pct Auto 0.3 % (0.0-0.4); Lymphocytes Absolute Auto 4.2 X10*3/uL (1.2-4.9); Lymphocytes Percent Auto 38.4 % (20-40); Mean Corpuscular HGB Conc 36.7 g/dl (31.0-36.0); Mean Corpuscular Hemoglobin 31.3 pg (27.0-33.0); Mean Corpuscular Volume 85.2 fL (80.0-98.0); Mean Platelet Volume 11.9 fL (9.4-12.4); Monocytes Absolute Auto 1.2 X10*3/uL (0.1-1.2); Neutrophils Absolute Auto 5.3 x10*3/uL (2.0-8.3); Neutrophils Percent Auto 48.7 % (45-73); Platelet Count 272 X10*3/uL (160-400); Red Blood Count 4.99 X10*6/uL (4.60-5.80); White Blood Count 10.8 X10*3/uL (4.8-10.8)
[2024-03-25 20:43] LABS: Alanine Aminotransferase 83 U/L (0-40); Albumin Level 4.7 g/dL (3.5-5.0); Anion Gap 17 (12-20); Aspartate Amino Transferase 42 U/L (5-37); Bilirubin Direct 0.2 mg/dL (0.0-0.5); Bilirubin Total 0.6 mg/dL (0.0-1.0); Blood Urea Nitrogen 18 mg/dL (9-16); Calcium 9.7 mg/dL (8.4-10.2); Carbon Dioxide 18 mmol/L (22-29); Chloride 111 mmol/L (96-108); Creatinine Clr Calc Pharmacy 76.8; Estimated Glomerular Filt Rate > 60; Glucose Random 106 mg/dL (60-115); Magnesium 1.9 mg/dL (1.6-2.6); Potassium 3.2 mmol/L (3.3-5.1); Sodium 143 mmol/L (135-145); Total Protein 7.8 g/dL (6.5-8.0); Troponin-I High Sensitivity < 2.7 ng/L (<3.5-35.0)
[2024-03-25 20:52] LABS: Alkaline Phosphatase 55 U/L (39-117)
[2024-03-25 20:53] VITALS: BP 135/94; PULSE 131; RESP 20; O2SAT 100
[2024-03-25] MEDS: 0.9 % Sodium Chloride 1,000 ML 999 ML IV (20:53)
[2024-03-25] MEDS: LORazepam 2 MG/ML VIAL 1 MG IVPUSH (20:55)
[2024-03-25 22:00] VITALS: BP 139/93; PULSE 97; RESP 14; TEMP 36.9; O2SAT 97
[2024-03-25 22:47] VITALS: BP 139/93; PULSE 97; RESP 14; TEMP 36.9; O2SAT 97
== END 2024-03-25 22:53 | disposition home or self-care (01) ==
PROVIDERS: Nurse Practitioner Family; Emergency Provider Internal Medicine
DX: R07.89 Other chest pain (principal); M79.642 Pain in left hand; R00.2 Palpitations; R00.0 Tachycardia, unspecified; F41.9 Anxiety disorder, unspecified; R11.0 Nausea; Z87.891 Personal history of nicotine dependence; Z79.899 Other long term (current) drug therapy
CPT/HCPCS: 36415; 71046; 80048; 80076; 83735; 84443; 84484; 85025; 93005; 96361; 96374; 99284; J2060

== ENCOUNTER → 2024-03-25 20:03 | Outpatient (BNV) | payer OTHER, SELFPAY | PROVIDERS: Emergency Provider Internal Medicine; Visit Provider Internal Medicine | DX: R00.0 Tachycardia, unspecified (principal) | CPT/HCPCS: 93010 ==

== ENCOUNTER → 2024-03-25 20:06 | Outpatient (BNV) | payer OTHER, SELFPAY | PROVIDERS: Emergency Provider Internal Medicine; Visit Provider Specialist | DX: R00.0 Tachycardia, unspecified (principal) | CPT/HCPCS: 71046 ==

== ENCOUNTER 2024-10-10 19:38 | Emergency (ER) | payer OTHER, SELFPAY ==
--- NOTE | 2024-10-10 | ECG_ITS ---
Test Reason : chest pain Blood Pressure : */* mmHG Vent. Rate : 94 BPM Atrial Rate : 94 BPM P-R Int : 122 ms QRS Dur : 90 ms QT Int : 374 ms P-R-T Axes : 52 9 59 degrees QTcB Int : 467 ms Normal sinus rhythm Nonspecific T wave abnormality Prolonged QT Abnormal ECG When compared with ECG of 25-Mar-2024 20:05, Vent. rate has decreased by [address] no longer depressed in Inferior leads Nonspecific T wave abnormality now evident in Lateral leads Referred By: Generic ED Physician Electronically Signed By: ROS AMBROCIO MD
[2024-10-10 19:48] VITALS: BP 146/84; PULSE 98; RESP 17; TEMP 37.1; O2SAT 98; BMI 24.5
--- NOTE | 2024-10-10 20:10 | ED_ITS ---
HPI - General Adult General Chief complaint: Anxiety Stated complaint: elevated heart rate, dizziness, numbness in finger Time Seen by Provider: 10/11/24 02:33 Source: patient Limitations: no limitations History of Present Illness ED Provider: Shannon Hope PA-C HPI narrative: 34-year-old male with a history of anxiety presents with palpitations. Patient states he developed palpitations and lightheadedness while lying in bed. Associated numbness and tingling of his fingers bilaterally. Patient does admit he has numerous recent psychosocial stressors. Patient took Ativan pre arrival, in his feeling better. Patient also states he is having right-sided dental pain, he states he has a pending appointment with the his dentist this morning. He states the pain has been extreme. Denies fever. Patient does admit to consuming alcohol intermittently, overnight he had 4 shots of hard liquor. Denies SI, HI or use of other illicit substances. Denies chest pain, shortness of breath. Related Data Previous Rx's ?Medication ?Instructions ?Recorded ondansetron 4 mg disintegrating 4 mg PO Q6-8H PRN naus ea and 10/12/21 tablet vomiting #15 tabs clindamycin HCl 150 mg capsule 450 mg (3 x 150 mg) PO TID #60 caps 10/11/24 (Cleocin HCl) Allergies Allergy/AdvReac Type Severity Reaction Status Date / Time amoxicillin (AMOXICILLIN) Allergy Unknown HIVES Verified 10/10/24 19:51 azithromycin (From ZITHROMAX) Allergy Unknown HIVES, Verified 10/10/24 19:51 MUSCLE SPASMS sulfamethoxazole (From Allergy Unknown HIVES Verified 10/10/24 19:51 BACTRIM) trimethoprim (From BACTRIM) Allergy Unknown HIVES Verified 10/10/24 19:51 Review of Systems 2 Review of Systems: Yes all other systems are reviewed and are negative Constitutional: Constitutional: Denies fatigue and Denies fever(s) Cardiovascular: Cardiovascular: Denies chest pain, Reports palpitations and Denies dyspnea Respiratory: Respiratory: Denies dyspnea Gastrointestinal: Gastrointestinal: Denies abdominal pain, Denies nausea and Denies vomiting Musculoskeletal: Musculoskeletal: Reports numbness Neurologic: Reports numbness Psychiatric: Psychiatric: Reports anxiety Endocrine: Endocrine: Denies fatigue and Reports palpitations PMFSH Past Medical History Attestation statement: The following information was validated with the patient. Social History Social History Alcohol intake: current Alcohol intake frequency: holidays/special occasions only Alcohol type: hard liquor Patient Tobacco Use Status: Former Tobacco user Smoked in Last 30 Days: No Use of substances other than those prescribed or required for medical reasons: Yes Substance Use Type: Marijuana Advance Directives: No Advance Directives Information Provided: No Do you have a plan to hurt others: No Plan Physical Exam ED Vital Signs: Vital Signs - 24 hr 10/10/24 19:48 10/11/24 01:46 Temperature 98.7 F 98.2 F Pulse Rate 98 61 Respiratory Rate 17 17 Blood Pressure 146/84 H 142/93 H Pulse Oximetry 98 98 Oxygen Delivery Method Room Air Room Air BMI result Body Mass Index 24.5 Const Other: Alert, appears anxious Orientation/consciousness: patient oriented x3 HENMT Other: Dentition intact, there was no obvious evidence of a dental abscess/infection, no swelling or erythema noted along the gum tooth margins or buccal mucosa, no trismus no drooling Resp Effort & Inspection: normal respiratory effort Cardio Other: Normal peripheral perfusion Skin Other: Warm dry no rash Neuro General: patient oriented x3, gait normal, no focal motor deficits and CN's II- XI intact bilaterally Psych Other: Cooperative Course Course Course Narrative: RME: 34 yold male with pmh of anixety presents to the ED for palpitations, dizziness, ligheadendess, nubnmess in left finger tips 3 hours ago. Patient denies any chest pain or shortnes of breath. patient admits stopping drinking for one monht and than took 4 shots last night. Patient states he took ativan. Medications Administered Discontinued Medications Generic Name Dose Route Start Last Admin Trade Name Freq PRN Reason Stop Dose Admin Acetaminophen 975 mg 10/11/24 03:15 10/11/24 03:49 Acetaminophen 325 Mg Tablet PO 10/11/24 03:16 975 mg ONCE ONE Administration Clindamycin HCl 450 mg 10/11/24 03:15 10/11/24 03:49 Clindamycin Hcl 150 Mg Capsule PO 10/11/24 03:16 Not Given ONCE ONE Ibuprofen 600 mg 10/11/24 03:15 10/11/24 03:49 Ibuprofen 600 Mg Tablet PO 10/11/24 03:16 600 mg ONCE ONE Administration Medical Decision Making Medical Decision Making [facility] Narrative: 34-year-old male with a history of anxiety presents with palpitations. Patient states he developed palpitations and lightheadedness while lying in bed. Associated numbness and tingling of his fingers bilaterally. Patient does admit he has numerous recent psychosocial stressors. Patient took Ativan pre arrival, in his feeling better. Patient also states he is having right-sided dental pain, he states he has a pending appointment with the his dentist this morning. He states the pain has been extreme. Denies fever. Patient does admit to consuming alcohol intermittently, overnight he had 4 shots of hard liquor. Denies SI, HI or use of other illicit substances. Denies chest pain, shortness of breath. Problem: Anxiety History: Per patient I have considered the following differential diagnoses: Anxiety/panic attack, decompensated psychiatric illness, alcohol withdrawal, dental infection, new arrhythmia, ACS Plan: No new arrhythmia documented on the EKG, ACS was considered, however the patient has no risk factors for coronary artery disease, troponin negative, his heart score is 0. I do believe the patient's symptoms are secondary to a panic attack. He readily admits he has anxiety, he has numerous psychosocial stressors, he is also in pain from a developing dental infection. His exam was unremarkable, there was no obvious evidence of a dental abscess, it is ideal he has an appointment with the his dentist tomorrow. We will start on antibiotics. In regard to the patient's drinking, I do not believe he is experiencing alcohol withdrawal, he will abstain from alcohol for weeks, then consume alcohol intermittently on the weekend. I have independently reviewed the following tests: Labs: Slight leukocytosis, not anemic, no electrolyte abnormality, troponin negative EKG: Normal sinus rhythm, rate of 94, no ischemic changes no ectopy, QTC 467 Lab Data 10/10/24 20:52 10/10/24 20:52 Labs: Lab Results 10/10/24 Range/Units 20:52 WBC 12.7 H (4.8-10.8) X10*3/uL RBC 4.82 (4.60-5.80) X10*6/uL Hgb 15.1 (14.0-18.0) g/dl Hct 42.0 (42.0-52.0) % MCV 87.1 (80.0-98.0) fL MCH 31.3 (27.0-33.0) pg MCHC 36.0 (31.0-36.0) g/dl RDW 12.1 (11.0-16.0) % Plt Count 224 (160-400) X10*3/uL MPV 11.6 (9.4-12.4) fL Immature Gran % (Auto) 0.4 (0.0-0.4) % Neut % (Auto) 83.8 H (45-73) % Lymph % (Auto) 8.3 L (20-40) % [place] % (Auto) 6.9 (2-11) % Eos % (Auto) 0.4 (0-4) % Baso % (Auto) 0.2 (0-2) % Lymph # (Auto) 1.1 L (1.2-4.9) X10*3/uL [place] # (Auto) 0.9 (0.1-1.2) X10*3/uL Eos # (Auto) 0.1 (0.0-0.4) X10*3/uL Baso # (Auto) 0.0 (0.0-0.2) X10*3/uL Abs Immat Gran (auto) 0.05 H (0.00-0.03) X10*3/uL Absolute Neuts (auto) 10.6 H (2.0-8.3) x10*3/uL Absolute Nucleated RBC 0.000 (0.0-0.012) X10*3/uL Nucleated RBC % (auto) 0.0 (0.0-0.2) /100WBC Sodium 140 (135-145) mmol/L Potassium 4.2 D (3.3-5.1) mmol/L Chloride 106 (96-108) mmol/L Carbon Dioxide 24 (22-29) mmol/L Anion Gap 14 (12-20) BUN 18 H (9-16) mg/dL Creatinine 1.20 (0.5-1.4) mg/dL Estim Creat Clear Calc 74.0 Estimated GFR > 60 Random Glucose 129 H (60-115) mg/dL Calcium 9.2 (8.4-10.2) mg/dL Magnesium 1.9 (1.6-2.6) mg/dL Total Bilirubin 0.8 (0.0-1.0) mg/dL Direct Bilirubin 0.3 (0.0-0.5) mg/dL AST 27 (5-37) U/L ALT 50 H (0-40) U/L Alkaline Phosphatase 44 (39-117) U/L Troponin I High Sens < 2.7 (<3.5-35.0) ng/L Total Protein 6.9 (6.5-8.0) g/dL Albumin 4.7 (3.5-5.0) g/dL Lipase 17 (8-78) U/L Ethyl Alcohol 10 mg/dL Discharge Plan Discharge Clinical Impression: Acute anxiety, Dental infection Patient Disposition: Home, Self-Care Instructions: Dental Abscess (ED), Panic Disorder (ED), Anxiety (ED) Additional Instructions: All of your screening labs including a cardiac enzymes were normal. There were no concerning changes on your EKG. It does sound as if you were having a panic attack. See home care instructions. I am providing you with a list of outpatient resources for counseling and therapy. In regard to your dental pain, your discomfort could most certainly be contributing to your symptoms. Take the clindamycin as directed. For your dental pain, you can alternate with [id number] Tylenol 1000 mg taken every 8 hours, with [id number] ibuprofen 600 mg taken every 6 hours with food. It is ideal that you have an appointment with your dentist this morning, keep that appointment. Prescriptions: New clindamycin HCl [Cleocin HCl] 150 mg capsule 450 mg PO TID Qty: 60 0RF No Action ondansetron 4 mg tablet,disintegrating 4 mg PO Q6-8H PRN (Reason: nausea and vomiting) Qty: 15 0RF Interventions: ED Discharge Assessment Last Done: 10/11/24 03:55 Discharge Date/Time: 10/11/24 03:56 Print Language: Divehi
--- OUTSIDE RECORDS SUMMARY | 2024-10-10 20:30 | XMS_ITS | Continuity of Care Document ---
Author Name [facility] Organization [facility] Care Team Providers Care Video Coordinator Name Role Phone [facility] Unavailable Unavailable Problems Combined list of problems from Department of Defense and Veterans Affairs facilities. It does not include entries that were removed or entered in error. Problem Status Onset Date Problem Type Date of Resolution Comments Source Other specified counseling Active 05/18/2024 Diagnosis 0310C-AF-C- [facility] [employer] EXAM, FORMAL OCCUPATIONAL HEALTH PROGRAM INCLUDING HEARING CONSERVATION PROGRAM, PERIODIC FOR CONTINUED SURVEILLANCE FOR OCCUPATIONAL WORKPLACE EXPOSURE Active Condition DoD EPIDIDYMITIS RIGHT Inactive Condition Do D testicular pain Inactive Condition [facility] visit for: administrative purpose Inactive Condition DoD Medications Combined list of outpatient medications from Department of Defense and Veterans Affairs facilities.Medications provided include 1) outpatient medications from the last 15 months, and 2) patient-reported medications. Medication Details Route Status Patient Instructions Prescription Expires Prescription Number Last Dispense Date Ordering Provider Order Date Order Qty Source atovaquone- proguanil 250 mg-100 mg oral tablet 0 total refill(s ) Ordered 2021 No Facilit y Access busPIRone 7.5 mg oral tablet busPIRon e 7.5 mg oral tablet Start Date: 01/27/21 Status: Ordered Repeat number: 1 Ordered 2021 No Facilit y Access busPIRone 7.5 mg oral tablet busPIRon e 7.5 mg oral tablet Start Date: 05/11/21 Status: Ordered Repeat number: 1 Ordered 2021 No Facilit y Access busPIRone 7.5 mg oral tablet busPIRon e 7.5 mg oral tablet Start Date: 03/20/21 Status: Ordered Repeat number: 1 Ordered 2021 No Facilit y Access chlorhexidi ne 0.12% mucous membrane liquid chlorhex idine 0.12% mucous membrane liquid Start Date: 03/18/21 Status: Ordered Repeat number: 1 Ordered 2021 No Facilit y Access diclofenac 1% topical gel diclofen ac 1% topical gel Start Date: 06/23/20 Status: Ordered Repeat number: 1 Ordered 2021 No Facilit y Access diclofenac sodium 75 mg oral delayed release tablet diclofen ac sodium 75 mg oral delayed release tablet Start Date: 07/11/20 Status: Ordered Repeat number: 1 Ordered 2021 No Facilit y Access DOXYCYCLINE MONOHYDRATE (doxycyclin e monohydrate ), 100 MG, CAPSULE, ORAL, ALEMBIC PHARMAC, 50 ea. BOTTLE Active [id number] 2023 20 Pharmac y Data Transac tion Service Facilit y escitalopra m 10 mg oral tablet escitalo pram 10 mg oral tablet Start Date: 03/28/21 Status: Ordered Repeat number: 1 Ordered 2021 No Facilit y Access escitalopra m 5 mg oral tablet escitalo pram 5 mg oral tablet Start Date: 01/27/21 Status: Ordered Repeat number: 1 Ordered 2021 No Facilit y Access escitalopra m 5 mg oral tablet escitalo pram 5 mg oral tablet Start Date: 02/25/21 Status: Ordered Repeat number: 1 Ordered 2021 No Facilit y Access hydrOXYzine hydrochlori de 50 mg oral tablet hydrOXYz ine hydrochl oride 50 mg oral tablet Start Date: 03/28/21 Status: Ordered Repeat number: 1 Ordered 2021 No Facilit y Access hydrOXYzine hydrochlori de 50 mg oral tablet hydrOXYz ine hydrochl oride 50 mg oral tablet Start Date: 01/27/21 Status: Ordered Repeat number: 1 Ordered 2021 No Facilit y Access hydrOXYzine hydrochlori de 50 mg oral tablet hydrOXYz ine hydrochl oride 50 mg oral tablet Start Date: 05/11/21 Status: Ordered Repeat number: 1 Ordered 2021 No Facilit y Access LORAZEPAM (lorazepam) , 1 MG, TABLET, ORAL, LEADING PHARMA, 500 ea. BOTTLE Cancele d [id number] : 2023 0 Pharmac y Data Transac tion Service Facilit y Allergies, Adverse Reactions, Alerts Combined list of allergies from Department of Defense and Veterans Affairs facilities. It does not include entries that were removed or entered in error. Substance Category Reaction Severity Reaction type Status Date Reported Comments Source amoxicillin Propensity to adverse reactions to substance Urticaria Active 2 Unknown Organizat ion AMOXICILLIN (AMOXICILLIN ) Drug allergy (disorder) Urticaria active 2 [place] [address] azithromycin Propensity to adverse reactions to substance Urticaria Active 2 Unknown Organizat ion BACTRIM DS (SULFAMETHOX AZOLE/TRIMET HOPRIM) Drug allergy (disorder) Urticaria active 2 [place] [address] penicillins Propensity to adverse reactions to substance Allergic Drug Reaction Active 0 Unknown Organizat ion PENICILLINS {Cla } Drug allergy (disorder) Allergic Drug Reaction active 0 [place] [address] sulfamethoxa zole-trimeth oprim Propensity to adverse reactions to substance Urticaria Active 2 Unknown Organizat ion ZITHROMAX (AZITHROMYCI N) Drug allergy (disorder) Urticaria active 2 [place] [address] Immunizations Combined list of available immunizations from the Department of Defense and Veterans Affairs facilities. Immunization Series Date Given Administered By Site Reaction Lot Number CVX Code Drug Rouge Mixer Status Comments Source influenza virus vaccine, inactivated 2023 JUNIOR Echavarria meenakshi, left (delt oid) [id number] [employer] [facility] complet ed influenza virus vaccine, inactivat ed 12/30/23 Given [id number] MDG Influenza, injectable, quadrivalent, preservative free 0 2021 [id number] 150 M [employer] (SKB) complet ed Influenza , injectabl e, quadrival ent, preservat alphonso free DoD tetanus, diphtheria, acellular pertu is 2021 [id number] sanofi pasteur complet ed tetanus, diphtheri a, acellular pertussis 05/04/21 Given Ambulat ory Pharmac y tetanus toxoid, reduced diphtheria toxoid, and acellular pertu is vaccine, adsorbed 2 2021 [id number] 115 Sanofi Pasteur (PMC) complet ed tetanus toxoid, reduced diphtheri a toxoid, and acellular pertussis vaccine, adsorbed DoD influenza, injectable, quadrivalent 2020 [id number] 158 [facility] influenza , injectabl e, quadrival ent 12/09/20 Given Ambulat ory Pharmac y influenza, injectable, quadrivalent, contains preservative 11 2020 [id number] 158 [facility] (SKB) complet ed influenza , injectabl e, quadrival ent, contains preservat alphonso DoD COVID Vaccine Moderna 2020 [id number] complet ed COVID Vaccine Moderna 06/02/20 Given Ambulat ory Pharmac y SARS-COV-2 (COVID-19) vaccine, mRNA, spike protein, LNP, preservative free, 100 mcg or 50 mcg dose 2 2020 [id number] 207 Moderna [employer] (MOD) complet ed SARS-COV- 2 (COVID-19 ) vaccine, mRNA, spike protein, LNP, preservat alphonso free, 100 mcg or 50 mcg dose DoD COVID Vaccine Moderna 2020 [id number] complet ed COVID Vaccine Moderna 05/05/20 Given Ambulat ory Pharmac y SARS-COV-2 (COVID-19) vaccine, mRNA, spike protein, LNP, preservative free, 100 mcg or 50 mcg dose 1 2020 [id number] 207 Moderna [employer] (MOD) complet ed SARS-COV- 2 (COVID-19 ) vaccine, mRNA, spike protein, LNP, preservat alphonso free, 100 mcg or 50 mcg dose DoD influenza, injectable, quadrivalent- pf 2019 [id number] 150 [employer] complet ed influenza , injectabl e, quadrival ent-pf 01/08/20 Given Ambulat ory Pharmac y Influenza, injectable, quadrivalent, preservative free 1 2019 [id number] 150 [employer] (SEQ) complet ed Influenza , injectabl e, quadrival ent, preservat alphonso free DoD influenza, injectable, quadrivalent- pf 2018 [id number] 150 [employer] complet ed influenza , injectabl e, quadrival ent-pf 12/26/18 Given Ambulat ory Pharmac y Influenza, injectable, quadrivalent, preservative free 9 2018 [id number] 520 150 [employer] (SEQ) complet ed Influenza , injectabl e, quadrival ent, preservat alphonso free DoD influenza, injectable, quadrivalent 2017 [id number] 158 [employer] complet ed influenza , injectabl e, quadrival ent 12/16/17 Given Ambulat ory Pharmac y influenza, injectable, quadrivalent, contains preservative 8 2017 [id number] 158 [employer] (SEQ) comple t ed influenza , injectabl e, quadrival ent, contains preservat alphonso DoD measles/mumps /rubella virus vaccine 2017 [id number] 03 [employer]ck [employer] Inc complet ed measles/m umps/rube lla virus vaccine 07/26/17 Given Ambulat ory Pharmac y typhoid Vi capsular polysaccharid e vac 2017 [id number] 101 sanofi pasteur complet ed typhoid Vi capsular polysacch aride vac 07/26/17 Given Ambulat ory Pharmac y measles, mumps and rubella virus vaccine 2 2017 [id number] 03 Merck (MSD) complet ed measles, mumps and rubella virus vaccine DoD typhoid Vi capsular polysaccharid e vaccine 2 2017 [id number] 101 Sanofi Pasteur (PMC) complet ed typhoid Vi capsular polysacch aride vaccine DoD measles/mumps /rubella virus vaccine 2017 [id number] 03 Merck & Company Inc complet ed measles/m umps/rube lla virus vaccine 06/27/17 Given Ambulat ory Pharmac y measles, mumps and rubella virus vaccine 1 2017 [id number] 03 Merck (MSD) complet ed measles, mumps and rubella virus vaccine DoD Influenza, inj, MDCK, quadrivalent- pf 2016 [id number] 171 [employer] complet ed Influenza , inj, MDCK, quadrival ent-pf 12/25/16 Given Ambulat ory Pharmac y Influenza, injectable, Madin [place] Canine Kidney, preservative free, quadrivalent 7 2016 [id number] 171 [employer] (SEQ) comple t ed Influenza , injectabl e, Madin Cristiane Canine Kidney, preservat alphonso free, quadrival ent DoD influenza, seasonal, injectable-pf 2015 [id number] 140 [employer] complet ed influenza , seasonal, injectabl e-pf 12/30/15 Given Ambulat ory Pharmac y Influenza, seasonal, injectable, preservative free 6 2015 [id number] 140 Seqirus (SEQ) comple t ed Influenza , seasonal, injectabl e, preservat alphonso free DoD typhoid Vi capsular polysaccharid e vac 2015 [id number] 101 sanofi pasteur complet ed typhoid Vi capsular polysacch aride vac 05/26/15 Given Ambulat ory Pharmac y typhoid Vi capsular polysaccharid e vaccine 1 2015 A1283-0 101 Sanofi Pasteur (PMC) complet ed typhoid Vi capsular polysacch aride vaccine DoD influenza, seasonal, injectable 2014 [id number] 1A 141 CSL [employer] complet ed influenza , seasonal, injectabl e 11/26/14 Given Ambulat ory Pharmac y Influenza, seasonal, injectable 5 2014 [id number] [id number] 141 CSProcuraherapies, Inc. (CSL) complet ed Influenza , seasonal, injectabl e DoD influenza, injectable, quadrivalent- pf 2014 [id number] 150 [employer] comple t ed influenza , injectabl e, quadrival ent-pf 04/01/14 Given Ambulat ory Pharmac y Influenza, injectable, quadrivalent, preservative free 4 2014 [id number] 150 (IDB) complet ed Influenza , injectabl e, quadrival ent, preservat alphonso free DoD influenza, seasonal, injectable 2012 [id number] 1A 141 [facility] complet ed influenza , seasonal, injectabl e 12/26/12 Given Ambulat ory Pharmac y Influenza, seasonal, injectable 3 2012 [id number] [id number] 141 CSLinqiaapies, Inc. (CSL) complet ed Influenza , seasonal, injectabl e DoD measles virus vaccine 0 2012 05 () Not Given measles virus vaccine DoD rubella virus vaccine 0 2012 06 () Not Given rubella virus vaccine DoD influenza, seasonal, injectable 2011 [id number] 1A 141 CSmyDrugCosts [employer]ruid[employer] complet ed influenza , seasonal, injectabl e 01/24/12 Given Ambulat ory Pharmac y Influenza, seasonal, injectable 2 2011 [id number] 1A 141 CSLinqiaapies, Inc. (CSL) complet ed Influenza , seasonal, injectabl e DoD poliovirus vaccine, inactivated 2011 [id number] 10 sanofi pasteur complet ed polioviru s vaccine, inactivat ed 05/07/11 Given Ambulat ory Pharmac y measles, mumps and rubella virus vaccine 1 2011 03 () Not Given measles, mumps and rubella virus vaccine DoD poliovirus vaccine, inactivated 1 2011 [id number] 10 Sanofi Pasteur ([facility]) complet ed polioviru s vaccine, inactivat ed DoD varicella virus vaccine 1 2011 21 () Not Given varicella virus vaccine DoD hepatitis B vaccine, unspecified formulation 1 2011 45 () Not Given hepatitis B vaccine, unspecifi ed formulati on DoD hepatitis A vaccine, adult dosage 1 2011 52 () Not Given hepatitis A vaccine, adult dosage DoD tuberculin purified protein derivative 2011 [id number] 96 sanofi pasteur complet ed tuberculi n purified protein derivativ e 05/05/11 Given Ambulat ory Pharmac y tetanus, diphtheria, acellular pertu is 2011 [id number] 8BA 115 [employer] complet ed tetanus, diphtheri a, acellular pertussis 05/01/11 Given Ambulat ory Pharmac y meningococcal A,C,Y,W-135 (MCV4P) 2011 [id number] 114 sanofi pasteur complet ed meningoco ccal A,C,Y,W-1 35 (MCV4P) 05/01/11 Given Ambulat ory Pharmac y adenovirus vaccine, live 2011 [id number] 7 143 Teva [employer] complet ed adenoviru s vaccine, live 05/01/11 Given Ambulat ory Pharmac y influenza, seasonal, injectable-pf 2011 [id number] 140 sanofi pasteur complet ed influenza , seasonal, injectabl e-pf 05/01/11 Given Ambulat ory Pharmac y meningococcal polysaccharid e (groups A, C, Y and W-135) diphtheria toxoid conjugate vaccine (MCV4P) 1 2011 [id number] 114 Sanofi Pasteur (PMC) complet ed meningoco ccal polysacch aride (groups A, C, Y and W-135) diphtheri a toxoid conjugate vaccine (MCV4P) DoD tetanus toxoid, reduced diphtheria toxoid, and acellular pertu is vaccine, adsorbed 1 2011 [id number] 115 [employer] (SKB) complet ed tetanus toxoid, reduced diphtheri a toxoid, and acellular pertussis vaccine, adsorbed DoD Influenza, seasonal, injectable, preservative free 1 2011 [id number] 140 Sanofi Pasteur (PMC) complet ed Influenza , seasonal, injectabl e, preservat alphonso free DoD Adenovirus, type 4 and type 7, live, oral [id number] [facility] ([facility]) complet ed Adenoviru s, type 4 and type 7, live, oral DoD Results Combined list of recent chemistry, hematology and other laboratory results from Department of Defense and Veterans Affairs, ranging from 15 months to all on record, depending upon the facility. Order Name Results Value Reference Range Date Interpretation Specimen Comments Source Miscellan eous Sendouts Carboxy-TH C Ur LC 112 ng/mgcre at 04/08 Result Comment: This test is not intended to distinguish between the metabolites of delta-9-tet rahydrocann abinol, the predominant form of THC in most herbal or marijuana-b ased products, and delta-8-tet rahydrocann abinol, a psychoactiv e compound generally synthesized from other cannabinoid s. 0310A-AF -C-66 [facility] [employer] Miscellan eous Sendouts Cannabinoi ds LC +POSITIV E+ 04/08 0310A-AF -C-[facility] [employer] Miscellan eous Sendouts Level of Detection: LC COMMENT 04/08 Result Comment: Testing Threshold: 2 ng/mL ' This test was developed and its performance characteris tics determined by [employer]. It has not been cleared or approved by the Food and Drug Administrat ion. ToxAssure, ToxAssure FLEX or MAT drug testing: Technical Component - [facility], [address] [place] [address], [place], [address] . Mobile Home Mechanic Mellisa Polk MD Performed At: 01 [employer] [address] [id number] Saulo Vargas [facility] Ph:[phone] 0310A-AF -C-66[facility] Zappedycellan eous Sendouts [facility] Specimen Source? URIINE 04/080A-AF -C-[facility] [employer] Miscellan eous Sendouts Test Name.BERTIN Bubbain maggy Mccarty, , UR 04/080A-AF -C-[facility] [employer] Miscellan eous Sendouts Req Order?.LC [id number] 04/080A-AF -C-[facility] [employer] Miscellan eous Sendouts Misc Result.LC SEE IMAGE 04/080A-AF -C-[facility] [employer] Chemistry eGFR CKD EPI 89.8 mL/min 04/04 L Interpretiv e Data: Estimated Glomerular Filtration Rate (eGFR) calculated using the 2020 Chronic Kidney Disease-Epi demiology (CKD-EPI) Collaborati on creatinine equation; units of measure are mL/min/1.73 m2. Results are only valid for adults ( 18 years) whose serum creatinine is in steady state. eGFR calculation s are not valid for patients with acute kidney injury and for patients on dialysis. C reatinine-b ased estimates of kidney function may also be inaccurate in patients with reduced creatinine generation due to decreased muscle mass (e.g., malnutritio n, severe hypoalbumin emia, sarcopenia, chronic neuromuscul ar disease, amputations , severe heart failure or liver disease) and in patients with increased creatinine generation due to increased muscle mass (e.g., muscle builders, anabolic steroids) or increased dietary intake. As drug clearance is proportiona l to total GFR and not GFR indexed to body surface area (BSA), in individuals with a BSA substantial ly different than 1.73 m2, drug dosing should be based the reported eGFRvalue de-indexed from BSA by multiplying by the individual s BSA and dividing by 1.73. CKD is diagnosed based on abnormaliti es of kidney structure or function, present for >3 months, with implication s for health and disease. CKD is classified and staged based on cause, eGFR and albuminuria (quantified as urine albumin to creatinine ratio). An eGFR >60 mL/min/1.73 m2 in the absence of increased urine albumin excretion or structural abnormaliti es does not represent CKD.eGFR (mL/min/1.7 3 m2) CKD stage Interpretat ion 90 G1 Normal 60-89 G2 Mild decrease 45-59 G3A Mild to moderate decrease 30-44 G3B Moderate to severe decrease 15-29 G4 Severe decrease <15 G5 Kidney failure -OfferWire -C- [employer] Chemistry Carbohydra te Deficient Transferri n 0.7 % 0.0 - 1.6 04/04 N Interpretiv e Data: Normal: <1.4% Inconclusiv e: 1.4% to 1.6% Elevated: >1.6% The CDT values > 1.6 % are considered positive and due to chronic alcohol abuse. For a CDT percentage close to the threshold value, it is recommended to analyze the patient clinical data. Hepatic disorders may interfere with the CDT quantificat ion. Heavy alcohol use (defined as >4 or 5 beverages per day for two weeks or more) is commonly associated with elevated CDT levels as are certain liver diseases such as primary biliary cirrhosis and chronic active hepatitis and in some patients with genetic D variants of transferrin . No reference ranges available for pediatric patients. Methodology : Capillary Electrophor esis 5600A- AFSA EPILAB Chemistry Chloride 105 mmol/L 97 - 107 04/04 N [facility] Chemistry Alk Phos 57 U/L 37 - 121 04/04 N 031ElephantiA-O[employer]Wire -C-66 [employer] Chemistry CO2 29.0 mmol/L 22.0 - 30.0 04/04 N 031[employer] -C-[facility] [employer] Chemistry Creatinine Level 1.10 mg/dL 0.50 - 1.10 04/04 N 031ElephantiA-[employer] -C-66 [facility] Chemistry Protein Total 7.8 g/dL 6.2 - 8.3 04/04 N 031-[facility] -C-[facility] Chemistry Glucose Lvl 101 mg/dL 70 - 120 04/04 N Interpretiv e Data: According to the [place] [employer] consider the following when reviewing Fasting Glucose levels: Normal less than 100 mg/dL Prediabetes 100mg/dL to 125 mg/dL Diabetes 126 mg/dL or higher A-OfferWire -C-66 [employer] Chemistry A/G Ratio 2 meq/L 04/04 031-AF -C-66[facility] Chemistry Potassium Lvl 4.30 mmol/L 3.50 - 5.10 04/04 N -AF -C-66[facility] Chemistry Sodium 144.0 mmol/L 136.0 - 145.0 04/04 N 309AF -C-[facility] Chemistry AST 34 U/L 10 - 59 04/04 N [facility] Chemistry AGAP 14 mmol/L 10 - 04/04 N [facility] Chemistry BUN 23.0 mg/dL 10.0 - 20.0 04/04 H [facility] Chemistry BUN/Creat Ratio 21 04[facility] Bilirubin Total 0.70 mg/dL 0.20 - 1.20 04/04 N [facility] Chemistry ALT 65.0 U/L 13.0 - 69.0 04/04 N [facility] Chemistry Calcium 9.50 mg/dL 8.80 - 10.20 04/04 N [facility] Chemistry Albumin 5.00 g/dL 3.70 - 5.00 04/04 N [facility] Amph Scrn Negative 04/04 0117A-AF -ASU-59t h [facility] Toxicolog y U Cocaine Scrn Negative 3 (04/04/24 1:52 PM) 04/04 N Interpretiv e Data: Test Cut-off Concentrati ons Cocaine - 300 ng/mL These results are intended for medical treatment only, not employment or legal testing. This is not to be used for Therapeutic monitoring. 0117A-AF -ASU-59t h [facility] C-[place] Toxicolog y U Methadone Scrn Negative 2 (04/04/24 1:52 PM) 04/04 N Interpretiv e Data: Test Cut-off Concentrati ons Methadone - 300 ng/mL These results are intended for medical treatment only, not employment or legal testing. This is not to be used for Therapeutic monitoring. 0117A-AF -ASU-59t h [facility] C-[place] Toxicolog y U Propoxyphe ne Negative 9 (04/04/24 1:52 PM) 04/04 N Interpretiv e Data: Test Cut-off Concentrati ons Propoxyphen e - 300 ng/mL These results are intended for medical treatment only, not employment or legal testing. This is not to be used for Therapeutic monitoring. 0117A-AF -ASU-59t h [facility] C-[place] Toxicolog y U Benzodia Scrn Negative 1 (04/04/24 1:52 PM) 04/04 N Interpretiv e Data: Test Cut-off Concentrati ons Benzodiazep ine - 100 ng/mL These results are intended for medical treatment only, not employment or legal testing. This is not to be used for Therapeutic monitoring. 0117A-AF -ASU-59t h [facility] C-[place] Toxicolog y U Cannab Scrn PresumPo s 04/04 Interpretiv e Data: Test Cut-off Concentrati ons Cannabinoid s (THC) - 50 ng/mL These results are intended for medical treatment only, not employment or legal testing. This is not to be used for Therapeutic monitoring. 0117A-AF -ASU-59t h [facility] C-[place] Toxicolog y U PCP Scrn Negative 5 (04/04/24 1:52 PM) 04/04 N Interpretiv e Data: Test Cut-off Concentrati ons Phencyclidi ne (PCP) - 25 ng/mL These results are intended for medical treatment only, not employment or legal testing. This is not to be used for Therapeutic monitoring. 0117A-AF -ASU-59t h [facility] C-[place] Toxicolog y U Opiate Scrn Negative 4 (04/04/24 1:52 PM) Negative 04/04 N Interpretiv e Data: Test Cut-off Concentrati ons Opiate - 300 ng/mL These results are intended for medical treatment only, not employment or legal testing. This is not to be used for Therapeutic monitoring. 0117A-AF -ASU-59t h [facility] C-[place] Toxicolog y U Ca Scrn Negative 6 (04/04/24 1:52 PM) 04/04 N Interpretiv e Data: Test Cut-off Concentrati ons Barbiturate s - 200 ng/mL These results are intended for medical treatment only, not employment or legal testing. This is not to be used for Therapeutic monitoring. 0117A-AF -ASU-59t h [facility] C-[place] Infectiou s Disease HIV-1/O/2 Non-Reac tive 10 (04/04/24 1:52 PM) 04/04 N Interpretiv e Data: INTERPRETAT ION: This method is a screening procedure for the detection of HIV p24 Antigen and Antibodies to HIV-1, including Group O, and/or HIV-2. NON-REACTIV E: HIV-1 antigen and HIV-1 / HIV-2 antibodies were not detected. No laboratory evidence of HIV infection. A negative test result does not exclude the possibility of exposure to or infection with HIV. HIV antibodies and/or p24 antigen may be undetectabl e in some stages of the infection and in some clinical conditions. If acute HIV infection is suspected, consider submitting another specimen to a reference laboratory for HIV-1 RNA. SCREEN REACTIVE - CONFIRMATIO N TO FOLLOW: Possible presence of HIV-1antibo dies, HIV-2 antibodies and/or HIV-1 p24 antigen. Specimen will reflex to the confirmatio n testing that fulfills the Center for Disease Control and Prevention' s HIV diagnostic algorithm. Refer to [facility] Lab Guide for additional information : [email or web address] x Testing performed by [facility] yg gaspar. 5600A- AFSAM EPILAB Toxicolog y Phosphatid ylethanol. LC Positive 04/04 A 0310A-AF -C-66th [facility] Toxicolog y Phosphatid ylethanol (PEth).LC 24 ng/mL 04/04 Result Comment: Analyzed compound: PEth 16:0/18:1. 1-palmitoyl -2-oleoyl-s n-glycero-3 -phosphoeth anol. Analysis performed by Liquid Chromatogra phy with Tandem Mass Spectrometr y (LC/MS/MS). Detection limit: 20 ng/mL PEth levels in excess of 20 ng/mL are considered evidence of moderate to heavy ethanol consumption . However, the Center for Substance Abuse Treatment (CSAT) advises caution in interpretat ion and use of biomarkers alone to assess alcohol use. Results should be interpreted in the context of all available clinical and behavioral information . Reference: Substance Abuse and Mental Health Services Administrat ion (2012). The Role of Biomarkers in the Treatment of Alcohol Use Disorders , 2012 Revision. Advisory, Volume 11, Issue 2. This test was developed and its performance characteris tics determined by [employer]. It has not been cleared or approved by the Food and Drug Administrat [facility]. Performed At: [address] [facility] [address] [id number] Saulo Vargas [facility] Ph:[phone] 0310A-AF -C-66th [facility] Infectiou s Disease HIV-1/O/2 Non-Reac tive 11 (05/09/23 10:00 AM) 05/08 N Interpretiv e Data: INTERPRETAT ION: This method is a screening procedure for the detection of HIV p24 Antigen and Antibodies to HIV-1, including Group O, and/or HIV-2. NON-REACTIV E: HIV-1 antigen and HIV-1 / HIV-2 antibodies were not detected. No laboratory evidence of HIV infection. A negative test result does not exclude the possibility of exposure to or infection with HIV. HIV antibodies and/or p24 antigen may be undetectabl e in some stages of the infection and in some clinical conditions. If acute HIV infection is suspected, consider submitting another specimen to a reference laboratory for HIV-1 RNA. SCREEN REACTIVE - CONFIRMATIO N TO FOLLOW: Possible presence of HIV-1antibo dies, HIV-2 antibodies and/or HIV-1 p24 antigen. Specimen will reflex to the confirmatio n testing that fulfills the Center for Disease Control and Prevention' s HIV diagnostic algorithm. Refer to [facility] Lab Guide for additional information : [email or web address]. [facility]/ kj/kx5/EPIL ab/Pages/la b_guide.asp x Testing performed by [employer] gaspar. 5600A-US AFSASpotted EPILAB Miscellan eous Sendouts Repository Sample Received (05/09/23 10:00 AM) 05/08 N 5600A-US AFSAM EPILAB Encounters Combined list of: 1) Encounters from Department of Veterans Affairs facilities going backup to the last 18 months, not all VA inpatient encounters are included; 2) Encounters from the Department of Defense facilities going backup to 280 months. Location Location Details Encounter Type Encounter Number Reason For Visit Attending Provider ADM Date DC Date Status Disposition Source [place] [address](JOHN Bartlett) OUTPATIENT [id number] cold pack CORRYLYLYDanielle Reaves 05/06 Released w/o Limitations [facility] [place] [address](Jean Paul Bartlett) [place] [address]([facility] [employer] Billy, [facility]) OUTPATIENT [id number] Rt testicl e pain 10/02 331/307 /2 LANI DUQUE 05/16 Released w/o Limitations [facility] [place] [address](T [employer] Jair Cervantes d) [place] [address]([employer] Billy, [facility]) OUTPATIENT [id number] Notes Entered by: Riley BOWERS 19 May 2011 0656 ------- ------- ------- ------- -- 0720-f/ u male issues- (331/30 7/3) ANABELA BROWN 05/18 Released with Work/Duty Limitations [facility] [place] [address](T [employer]agem[employer] BillyJair damon d) [place] [address]([employer] Billy, [facility]) OUTPATIENT [id number] Notes Entered by: BRANDI FUNG 06 Jun [id number] ------- ------- ------- ------- -- 1220-F/ U TESTICL E PAIN-33 /5 JOSE DURANT 06/05 Released w/o Limitations [facility] [place] [address] [place] [address](Isabella guadalupe [facility]) OUTPATIENT [id number] waleska BARAJAS LONA A 06/18 Released w/o Limitations [facility] [place] [address](Erika roman SHAREE) [place] [address](AFN G [address] [facility] S[facility]-FM) OUTPATIENT [id number] Notes Entered by: TANYA GOSS 31 Jul 2016 1417 ------- ------- ------- ------- -- [facility] KRISTYN Pittman 07/31 Released w/o Limitations [facility] [place] [address](A FNG 104 Med Sq-FM) [place] [address](AFN G 104 Med Sq-FM) OUTPATIENT [id number] Notes Entered by: TANYA GOSS 26 Mar 2017 1419 ------- ------- ------- ------- -- KRISTYN JIMENEZ 03/26 Released w/o Limitations [facility] [place] [address](A FNG 104 Med Sq-FM) [place] [address](AFN G 104 Med Sq-FM) OUTPATIENT [id number] Notes Entered by: YELITZA MIRZA 17 Apr 2017 1350 ------- ------- ------- ------- -- ZEFERINO Varghese 04/17 Released w/o Limitations [facility] [place] [address](A FNG 104 Med Sq-FM) [place] [address](AFN G 104 Med Sq-PH) OUTPATIENT [id number] Notes Entered by: YELITZA MIRZA 11 Aug 2017 1436 ------- ------- ------- ------- -- Pre-Dep loyment / Occupat ional Health GOSSKRISTYN CANTRELL PONCE 08/11 [facility]ased [facility]o Limitations [facility] [place] [address](A FNG 104 Med Sq-PH) [place] [address](AFN G 104 Med Sq-FM) OUTPATIENT [id number] Notes Entered by: IWONA STEPHENS 25 Apr 2018 1349 ------- ------- ------- ------- -- JULIETTE 4 (2015) and IWONA GARDINER 04/25 Released w/o Limitations [facility] [place] [address](A FNG 104 Med Sq-FM) [place] [address](AFN G 104 Med Sq-FM) OUTPATIENT [id number] Notes Entered by: YELITZA MIRZA 05 May 2018 0653 ------- ------- ------- ------- -- Occupat ional Health Exam ZEFERINO HIDALGO 05/05 [facility] [place] [address](A FNG 104 Med Sq-FM) [place] [address](AFN G 104 Med Sq-FM) OUTPATIENT [id number] Notes Entered by: ZEFERINO HIDALGO 11 Nov 2018 1554 ------- ------- ------- ------- -- Fit for duty request ZEFERINO HIDALGO 11/11 Released w/o Limitations [facility] [place] [address](A FNG 104 Med Sq-FM) [place] [address](AFN G 104 Med Sq-FM) OUTPATIENT [id number] Notes Entered by: NEYDA MASTERSON R 26 Apr 2019 1510 ------- ------- ------- ------- -- [employer] PHAQ RAFAEL MASTERSON 04/25 [facility]ased [facility]/o Limitations [facility] [place] [address](A FNG 104 Med Sq-FM) [place] [address](AFN G 104 Med Sq-FM) OUTPATIENT [id number] Notes Entered by: SARAH CHARLES 06 May 2020 1415 ------- ------- ------- ------- -- Annual Audiogr am / Respira tor ZEFERINO Caldera 05/06 Released w/o Limitations [facility] [place] [address](A FNG 104 Med Sq-FM) [place] [address](AFN G 104 Med Sq-FM) OUTPATIENT [id number] Notes Entered by: ZEFERINO HIDALGO 26 Jul 2020 1445 ------- ------- ------- ------- -- SCARLETT/ZEFERINO RODRIGUEZ 07/26 Released w/o Limitations [facility] [place] [address](A FNG 104 Med Sq-FM) [place] [address](AFN G 104 Med Sq-FM) OUTPATIENT [id number] Notes Entered by: SARAH CHARLES 04 May 2021 1355 ------- ------- ------- ------- -- Audiogr am DRUGACAM 05/04 [facility]ased [facility]/o Limitations [facility] [place] [address](A FNG 104 Med Sq-FM) [place] [address](AFN G 104 Med Sq-FM) TELE CONSULT [id number] ZEFERINO HIDALGO 06/14 [facility] [place] [address](A FNG 104 Med Sq-FM) [place] [address](AFN G 104 Med Sq-FM) TELE CONSULT [id number] ZEFERINO HIDALGO 03/07 [facility] [place] [address](A FNG 104 Med Sq-FM) 8203R-104 MDG Care Not Rendered [id number] LDEA CHAHAL 05/10 Discharge Disposition: Home or Self Care 8203R-1 04 MDG 0310C-AF- C-66th [facility] [id number] 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 edita HATCH 05/18 Discharge Disposition: Home or Self Care 0310C-A F-C-66t h [facility] 8203R-104 MDG Care Not Rendered [id number] LEDA CHAHAL 05/25 Discharge Disposition: Home or Self Care 8203R-1 04 MDG 8252R-155 MDG Between Visit [id number] 05/27 Discharge Disposition: Home or Self Care 8252R-1 55 MDG 8203R-104 MDG Care Not Rendered [id number] LEDA CHAHAL 06/20 Discharge Disposition: Home or Self Care 8203R-1 04 MDG Procedures Combined list of: 1) Procedures from Department of Veterans Affairs facilities going back up to thelast 18 months, not all VA non-surgical procedures are included; 2) All procedures from the Department of Defense facilities. Procedure Procedure Type Code Date Perfomer Comments Sourc e No data available for this section Ambulato ry Pharmacy URINALYSIS, BY DIP STICK OR TABLET REAGENT FOR BILIRUBIN, GLUCOSE, HEMOGLOBIN, KETONES, LEUKOCYTES, NITRITE, PH, PROTEIN, SPEC GRAVITY, UROBILINOGEN, ANY NUMBER OF CONSTITUENTS; W/O MICRO, AUTOMATED 06/19/19 12 [employer] WAIVER SERVICES; NOT OTHERWISE SPECIFIED (NOS) 05/29/19 21 [employer] EDUCATION &TRAINING, PATIENT SELF-MGT QUALIFIED, NONPHYSICIAN HEALTH BOOKING MANAGER USING STDIZED CURRICULUM, [id number] W THE PATIENT (COULD INCL CAREGIVER/FAMILY) EA 30 MIN; INDIVIDUAL PATIENT 01/18/20 [facility] BRIEF EMOTIONAL/BEHAVIOR AL ASSESSMENT (EG, DEPRESSION INVENTORY, ATTENTION-DEFICIT/ HYPERACTIVITY DISORDER [ADHD] SCALE), WITH SCORING AND DOCUMENTATION, PER STANDARDIZED INSTRUMENT 12/31/19 [facility] BRIEF EMOTIONAL/BEHAVIOR AL ASSESSMENT (EG, DEPRESSION INVENTORY, ATTENTION-DEFICIT/ HYPERACTIVITY DISORDER [ADHD] SCALE), WITH SCORING AND DOCUMENTATION, PER STANDARDIZED INSTRUMENT 05/16/19 16 [facility] Automated UA Without Microscopic Exam Automated UA Without Microscopic Exam [id number] 06/19/19 12 LONA BARAJAS [facility] Injection, ceftriaxone sodium, per 250 mg 05/19/[address] Supervised Injection Intramuscular Antibiotic Supervised Injection Intramuscular Antibiotic 47248 05/19/19 12 ANABELA BROWN [facility] Psychiatric Evaluation Comprehensive Examination Psychiatric Evaluation Comprehensive Examination 23218 GERALDO BARBOZA [facility] Patient Counseling Medical Management Individual Patient Patient Counseling Medical Management Individual Patient [address] GERALDO BARBOZA [facility] Waiver services; not otherwise specified (NOS) MARY APARICIO [facility] Social History Combined list of available smoking, tobacco, and other social history from Department of Defense and Veterans Affairs facilities. Social History Type Response Date Comment Sourc e Sex Representation Male (finding) 05/30/2021 Un known Organization Sexual Orientation Ambula tory Pharmacy Gender identity Ambulator y Pharmacy This section is an empty social history section. [facility] Assessment and Plan Combined list of future care activities from Department of Defense and Veterans Affairs facilities (e.g., assessment and plan notes, appointments, orders, and referrals). Additional future care activities may be listed in the Plan of Care section. Result Assessment and Plan Date Source Assessment and Plan Extracted from:Title : JANELL BANGURAE Follow-up Interview Author: VINAY CLINE, PhD, Psychology Date: 04/07/24 1. P anic disorder [episodic paroxysmal anxiety] Prognosis: Fair Extracted from:Title: JANELL DHILLON Initial Interview Author: VINAY CLINE, PhD, Psychology Date: 04/04/24 1. E ncounter for examination and observation for other specified reasons Prognosis: Fair 10/11/2024 3704A-MW-H-66th [facility] Functional Status Combined list of recent functional and cognitive assessments recorded at Department of Defense and Veterans Affairs (VA).VA Functional [place] Measurement (FIM) Scale: 1 = Total Assistance (Subject = 0% +), 2 = Maximal Assistance (Subject = 25% +), 3 = Moderate Assistance (Subject = 50% +), 4 = Minimal Assistance (Subject = 75% +), 5 = Supervision, 6 = Modified Carlton (Device), 7 = Complete Carlton (Timely, Safely). Assessment Date/Time Source Assessment Type Assessment Skill Assessment Score Assessment Details FUNCTIONAL 5Home Dietary Supplements Captured No
[2024-10-10 20:57] LABS: MANUAL DIFF FLAG NO
[2024-10-10 20:58] LABS: Hematocrit 42.0 % (42.0-52.0); Hemoglobin 15.1 g/dl (14.0-18.0); Imm Gran Abs Auto 0.05 X10*3/uL (0.00-0.03); Imm Gran Pct Auto 0.4 % (0.0-0.4); Lymphocytes Absolute Auto 1.1 X10*3/uL (1.2-4.9); Mean Corpuscular HGB Conc 36.0 g/dl (31.0-36.0); Mean Corpuscular Hemoglobin 31.3 pg (27.0-33.0); Mean Corpuscular Volume 87.1 fL (80.0-98.0); NRBC Abs Auto 0.000 X10*3/uL (0.0-0.012); NRBC Pct Auto 0.0 /100WBC (0.0-0.2); Platelet Count 224 X10*3/uL (160-400); Red Blood Count 4.82 X10*6/uL (4.60-5.80); White Blood Count 12.7 X10*3/uL (4.8-10.8)
[2024-10-10 21:11] LABS: Alanine Aminotransferase 50 U/L (0-40); Albumin Level 4.7 g/dL (3.5-5.0); Alkaline Phosphatase 44 U/L (39-117); Anion Gap 14 (12-20); Aspartate Amino Transferase 27 U/L (5-37); Blood Urea Nitrogen 18 mg/dL (9-16); Calcium 9.2 mg/dL (8.4-10.2); Carbon Dioxide 24 mmol/L (22-29); Chloride 106 mmol/L (96-108); Creatinine Clr Calc Pharmacy 74.0; Estimated Glomerular Filt Rate > 60; Magnesium 1.9 mg/dL (1.6-2.6); Potassium 4.2 mmol/L (3.3-5.1); Sodium 140 mmol/L (135-145); Total Protein 6.9 g/dL (6.5-8.0)
[2024-10-10 21:20] LABS: Troponin-I High Sensitivity < 2.7 ng/L (<3.5-35.0)
[2024-10-10 22:06] LABS: Lipase 17 U/L (8-78)
[2024-10-11 01:46] VITALS: BP 142/93; PULSE 61; RESP 17; TEMP 36.8; O2SAT 98
[2024-10-11 03:38] VITALS: BP 152/103; PULSE 47; RESP 10; TEMP 37.1; O2SAT 97
[2024-10-11 03:55] VITALS: BP 152/103; PULSE 47; RESP 10; TEMP 37.1; O2SAT 97
== END 2024-10-11 03:56 | disposition home or self-care (01) ==
PROVIDERS: Emergency Provider Emergency Medicine; PCP Family Medicine
DX: F41.9 Anxiety disorder, unspecified (principal); K04.7 Periapical abscess without sinus; R00.2 Palpitations; R42 Dizziness and giddiness; R20.0 Anesthesia of skin; K08.89 Other specified disorders of teeth and supporting structures
CPT/HCPCS: 36415; 80053; 80307; 82248; 83690; 83735; 84484; 85025; 93005; 99283; 99285

== ENCOUNTER → 2024-10-10 19:45 | Outpatient (BNV) | payer OTHER, SELFPAY | PROVIDERS: Emergency Provider Emergency Medicine; PCP Family Medicine; Visit Provider Internal Medicine Cardiovascular Disease | DX: R94.31 Abnormal electrocardiogram [ECG] [EKG] (principal); R07.9 Chest pain, unspecified | CPT/HCPCS: 93010 ==

== ENCOUNTER 2025-02-10 04:22 | Emergency (ER) | payer SELFPAY ==
--- NOTE | 2025-02-10 | ECG_ITS ---
Test Reason : CP Blood Pressure : */* mmHG Vent. Rate : 106 BPM Atrial Rate : 106 BPM P-R Int : 160 ms QRS Dur : 102 ms QT Int : 376 ms P-R-T Axes : 39 24 60 degrees QTcB Int : 499 ms Sinus tachycardia Otherwise normal ECG When compared with ECG of 10-Oct-2024 19:45, No significant change was found Referred By: Generic ED Physician Electronically Signed By: Hansel Soriano
--- NOTE | ~2025-02-10 | XR_ITS ---
CLINICAL HISTORY: chest pain Chest radiograph PA and lateral views Comparison: CR - XR CHEST 2V - 03/25/24 20:28 EST Findings: Cardiomediastinal silhouette normal. No consolidations.No pleural effusion. No pneumothorax. No free air under the diaphragms. No acute fracture. Soft tissue is unremarkable. Impression: No acute cardiopulmonary finding. This document has been electronically signed by: Tomasa Flores MD on 02/10/2025 08:12:57
[2025-02-10 04:17] VITALS: BP 218/120; PULSE 115; O2SAT 99
[2025-02-10 04:24] VITALS: BP 142/86; PULSE 109; RESP 13; TEMP 36.7; O2SAT 94; BMI 25.1
--- NOTE | 2025-02-10 04:32 | MHC.EDTECH ---
2 EKG ORDERD BECOUSE THE PATIENT UNREGISTERED. ONE ORDER WAS UNDER EMBULNCE NAME.
[2025-02-10 04:33] VITALS: BP 124/80; PULSE 100; RESP 12; O2SAT 94
[2025-02-10 04:34] LABS: MANUAL DIFF FLAG NO
[2025-02-10 04:35] LABS: Hematocrit 41.5 % (42.0-52.0); Hemoglobin 14.8 g/dl (14.0-18.0); Imm Gran Abs Auto 0.04 X10*3/uL (0.00-0.03); Imm Gran Pct Auto 0.4 % (0.0-0.4); Lymphocytes Absolute Auto 3.5 X10*3/uL (1.2-4.9); Mean Corpuscular HGB Conc 35.7 g/dl (31.0-36.0); Mean Corpuscular Hemoglobin 30.6 pg (27.0-33.0); Mean Corpuscular Volume 85.9 fL (80.0-98.0); NRBC Abs Auto 0.000 X10*3/uL (0.0-0.012); NRBC Pct Auto 0.0 /100WBC (0.0-0.2); Platelet Count 217 X10*3/uL (160-400); Red Blood Count 4.83 X10*6/uL (4.60-5.80); White Blood Count 9.0 X10*3/uL (4.8-10.8)
[2025-02-10 04:57] LABS: Troponin-I High Sensitivity < 2.7 ng/L (<3.5-35.0)
[2025-02-10 04:58] LABS: Alanine Aminotransferase 71 U/L (0-40); Albumin Level 4.7 g/dL (3.5-5.0); Alkaline Phosphatase 49 U/L (39-117); Anion Gap 12 (12-20); Aspartate Amino Transferase 38 U/L (5-37); Blood Urea Nitrogen 17 mg/dL (9-16); Calcium 9.0 mg/dL (8.4-10.2); Carbon Dioxide 24 mmol/L (22-29); Chloride 107 mmol/L (96-108); Creatinine Clr Calc Pharmacy 73.7; Estimated Glomerular Filt Rate > 60; Magnesium 2.0 mg/dL (1.6-2.6); Potassium 2.9 mmol/L (3.3-5.1); Sodium 140 mmol/L (135-145); Total Protein 6.7 g/dL (6.5-8.0)
--- OUTSIDE RECORDS SUMMARY | 2025-02-10 05:39 | XMS_ITS | Data Portability ---
Author Organization [facility], [facility] Address [address] [place] [address] Care Team Providers Care Talent Development Director Name Role Phone FOX STEPHEN Primary Care Provider Assessment No assessment recorded. Plan of Treatment Reminders Order Date Submit Date Provider Last Modified By Organization Details Last Modified Time Details Appointments None recorded . Lab None recorded . Referral physical therapis t referral - RIGHT LATERAL EPICONDY LITIS ECCENTRI C STRENGTH 2023 024 [email or web address] Not available 4 10:30:26 Procedures None recorded . Surgeries None recorded . Imaging None recorded . Medication Orders meloxica m 15 mg tablet 2023 024 [email or web address] Not available 4 15:18:19 Patient TargetsNo targets recorded. Patient InstructionsNo instructions recorded. Reason for Referral Physical Therapist Referral for Lateral epicondylitis RIGHT LATERAL EPICONDYLITIS ECCENTRIC STRENGTH Referring Physician: Kaylin Clifford, Orthopedic Surgery, Encounter Date: 09/11/2023 Results Created Date Observation Date Name Description Value Unit Range Abnormal Flag Note LastModifiedBy Organization Detail LastModifiedTime 10/24/19 24 12/31/2020 imagi ng/di agnos tic resul t No observ ation record ed. [email or web address] Not Available 09/25 04:07:41 Result Notes None recorded. Problems Name Problem SNOMED Code Status Onset Date Resolution Date Notes Provider Name and Address Organization Details Recorded Time No complaints 414021444 Active Status : 'A'; Not Available [employer] 4 09:11:26 Problem Notes None recorded. Medical Equipment None Reported. Allergies Allergen ID Allergen Name Allergen Category Reaction Reaction Severity Criticality Documentation Date Start Date Code Code System Note Provider Name and Address Organization Details Recorded Time 90961 amoxicill in trihydrat e medicatio n Not available Not available Not available 04/27/20232004 96525 8 RxNorm Aller gyRea ction : 'Skin React ion, Nause a/Vom iting /Diar liliam, Shock /Unco nscio usnes s, Anemi a/Blo od Disor meenakshi, Asthm a/Yvonne rt of Breat h, Y'; Not Available [facility] 11:24:40 67865 Bactrim medicatio n Not available Not available Not available 04/27/20232004 50739 9 RxNorm Aller gyRea ction : 'Skin React ion, Nause a/Vom iting /Diar liliam, Shock /Unco nscio usnes s, Anemi a/Blo od Disor meenakshi, Asthm a/Yvonne rt of Breat h'; Not Available [facility] 11:24:40 82104 Product containin g penicilli n (product) medicatio n Not available Not available Not available 04/27/20232020 03324 8001 SNOMED Not Available [facility] 11:24:41 Medications Name Sig Start Date Stop Date Status Note LastModified by Organization Details LastModified Time meloxicam 15 mg tablet active Not Available Not Available Not Available doxycycline monohydrate 100 mg capsule TAKE 1 CAPSULE BY MOUTH TWICE DAILY FOR 10 DAYS active Not Available Not Available No t Available lorazepam 1 mg tablet TAKE 1 TABLET BY MOUTH DIRECTED NEEDED BEFORE FLYING FOR ANXIETY active Not Available Not Available No t Available naproxen 500 mg tablet TAKE 1 TABLET BY MOUTH TWICE DAILY active Not Available Not Available No t Available sodium fluoride 1.1 % dental paste USE DIRECTED TWICE DAILY active Not Available Not Available No t Available oxycodone HCl-oxycodo ne-ASA as directed 1 Tab po q 4-[address] NOT DRIVE WHILE TAKING THIS MEDICATIO N 10/08 completed Statu s: 'Disc ontin ued'; Not Available Not Available Not Available Vitals Date Recorded Body height Body mass index (BMI) Body weight Provider Name and Address Organization Details Last Updated DateTime 09/11/2023 165.1 cm 25 kg/m2 80913.86 g Adwoa Gu [facility] 09/11/2023 10:09:10 Social History None recorded. Functional Status None recorded. Mental Status None recorded. Family History Nothing Reported. Medical History No medical history recorded. Past Encounters Encounter ID Performer Location Encounter Start Date Encounter Closed Date Diagnosis/Indication Diagnosis SNOMED-CT Code Diagnosis ICD10 Code Diagnosis IMO Codes Diagnosis Note [id number] LARRY Scott [address] [place] [address] 09/11/2023 09:50:14 10/09/2023 10:30:26 Lateral epicondylitis 856853035 M77.11 Health Concerns Section Related Observation LastModified by Organization Detai ls LastModified Time None Recorded Concern Status LastModified by Organization Details LastModified Time None Recorded Advance Directives Directive None Recorded Payers Insurance Date Sequence Insurance Name Policy Number Policy Friend Covered Member ID Friend Member ID Guarantor Name 12/08/2023 1 [facility] () Vinay Melgoza [id number] Vinay Melgoza Notes Date Note Type Note Provider Name and Address Organization Details Recorded Time 09/11/2023 text/html CC: Right elbow lateral epicondylitis, initial diagnosis HPI: Patient is a pleasant 32-year-old right hand dominant 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 He is preparing for a rock climbing competition in [facility] in 2 weeks. He has had recurrent challenges with pain on the lateral aspect of the elbow when he tries to add weight lifting into his workout routine. This is usually treated with a forearm strap is quite consistently, activity modifications, he has also been provided with the home exercise stretching and strengthening program for lateral epicondylitis by physical therapist in the past. Despite his long history with lateral epicondylitis, he has not yet had a cortisone injection for this problem. He is interested in trying this for some relief of his symptoms particularly as he prepares for the rock climbing competition in [facility] coming up. clinical update: Patient presents to clinic today for his request for reevaluation in regards to his right elbow. He was previously diagnosed with lateral epicondylitis and his elbow almost a year ago. He is given a cortisone injection which ultimately alleviated his pain for a significant amount of time. However when he was practicing climbing back in February he slipped and tried to adjust himself which exacerbated his pain. the injury ultimately has had him stop climbing due to his discomfort. He has been working on light exercises ever since however still having significant discomfort. Denies other interval trauma. Denies numbness and tingling. He is not taking anything for it. No changes in medical history.Past family, medical, social history and review of systems has been reviewed, updated and is located in the patient s chart.Examination:rudolph saleem is sitting comfortably exam reveals alert and oriented 3 in no acute distress.exam: Skin is intact without evidence of erythema or ecchymosis noted. No evidence of this comminuted. Patient's palpation about the lateral epicondyle of the elbow extending 3 cm distally. Nontender. The elbow. Intact flexion, extension and supination of the elbow without much discomfort. Evidence of discomfort with resisted wrist extension. Strength is 5/5 to wrist extension as well as biceps and triceps. No evidence of obvious laxity to valgus and varus stress testing at the elbow. Neurovascular intact capillary refill is less than 3 secondssterior toXnnone performed today.Impression: Right elbow lateral epicondylitis,Plan: Pathophysiology of this problem is been reviewed. patient will go into a lateral epicondylar strap as well as a wrist lacer brace. Patient will undergo course of anti-inflammatory therapy as well as occupational therapy to work on eccentric strengthening. She will follow back up in 6 weeks for reevaluation. If something pain will provide him an additional cortisone injection. In the meantime he is to hold off on any high-impact activities with his elbow to prevent exacerbation of symptoms. He understands this. All questions and concerns are answered and addressed.[employer] speech recognition press brake operator software was used to create portions of this document. An attempt at proof reading has been made to minimize errors. Please call for corrections.The patient is ambulatory, but has weakness and/or instability of their extremity which requires stabilization from this semi-rigid/rigid orthosis to improve their function.Verbal and written instructions for the use and application of this item were given. Patient was instructed that should the brace result in increased pain, decreased sensation, increased swelling or an overall worsening of their medical condition, to please contact our office immediately. Kaylin Clifford PA-C [address], [place], [address], [facility] 09/11/2023 12:50:41
[2025-02-10] MEDS: Potassium Chloride Packet 20 MEQ PACKET 40 MEQ PO (05:54)
--- NOTE | 2025-02-10 05:58 | PC.NURSE ---
pt tolerated PO potassium well
--- NOTE | 2025-02-10 06:46 | ED.CHESTPAIN ---
HPI - Chest Pain General Chief Complaint: Chest Pain Stated Complaint: CP Time Seen by Provider: 02/10/25 06:18 Source: patient and EMS Mode of arrival: EMS Limitations: no limitations History of Present Illness ED Provider: HPI narrative: History of Present Illness The patient is a 34-year-old male who awoke at approximately 03:00 with sudden-onset substernal chest pain accompanied by dizziness and numbness of the left arm. He also noted nausea at symptom onset but denies vomiting or diarrhea. Symptoms have been present for about 5 hours prior to arrival. He reports a largely sedentary lifestyle over the past year. No regular medications. He states does not use any drugs, drinks once a week but used to be a regular drinker, no recent surgeries no prolonged travels reported. Review of Systems ? Cardiovascular: Positive for chest pain. ? Neurologic: Positive for dizziness; positive for numbness in the left arm. ? Gastrointestinal: Positive for nausea; denies vomiting and diarrhea. Related Data Previous Rx's ?Medication ?Instructions ?Recorded ondansetron 4 mg disintegrating 4 mg PO Q6-8H PRN nausea and 10/12/21 tablet vomiting #15 tabs clindamycin HCl 150 mg capsule 450 mg (3 x 150 mg) PO TID #60 caps 10/11/24 (Cleocin HCl) potassium chloride 20 mEq oral 20 meq PO BID 7 days #30 ea 02/10/25 packet Allergies Allergy/AdvReac Type Severity Reaction Status Date / Time amoxicillin (AMOXICILLIN) Allergy Unknown HIVES Verified 02/10/25 04:26 azithromycin (From ZITHROMAX) Allergy Unknown HIVES, Verified 02/10/25 04:26 MUSCLE SPASMS sulfamethoxazole (From Allergy Unknown HIVES Verified 02/10/25 04:26 BACTRIM) trimethoprim (From BACTRIM) Allergy Unknown HIVES Verified 02/10/25 04:26 Review of Systems Constitutional: Constitutional: Reports as per [facility] Social History Social History Alcohol intake: current Alcohol intake frequency: holidays/special occasions only Alcohol type: hard liquor Patient Tobacco Use Status: Former Tobacco user Smoked in Last 30 Days: No Use of substances other than those prescribed or required for medical reasons: Yes Substance Use Type: Marijuana Advance Directives: No Advance Directives Information Provided: Yes Physical Exam Exam: Exam: ?General: ??looks age appropriate ?PERRLA, EOMI, MMM, Neck: Supple, no LAD ?CV: Tachycardic and regular, no obvious murmurs appreciated ?Resp: ?No wheezing rales rhonchi no stridor moving air well Abd: ?Bowel sounds are present, no tenderness no rebound no rigidity MSK: FROM, strength 5/5 all extremities Skin: Warm, dry, intact, ?Neuro: ?Alert and oriented x3, moving upper and lower extremities symmetrically, no obvious facial asymmetry noted, cranial nerves 2-12 intact Vital Signs: Vital Signs: Last Vital Signs Temp 98.0 F 02/10/25 04:24 Pulse 69 02/10/25 08:13 Resp 14 02/10/25 08:13 BP 103/67 02/10/25 08:13 Pulse Ox 98 02/10/25 08:13 O2 Del Method Room Air 02/10/25 08:13 BMI result Body Mass Index 25.1 Medications Administered Generic Name Dose Route Start Last Admin Trade Name Freq PRN Reason Stop Dose Admin Potassium Chloride 40 meq 02/10/25 09:00 02/10/25 05:54 Potassium Chloride Packet 20 Meq Packet PO 40 meq DAILY HIEN Administration Discontinued Medications Generic Name Dose Route Start Last Admin Trade Name Freq PRN Reason Stop Dose Admin Potassium Chloride 20 meq 02/10/25 06:47 02/10/25 07:48 Potassium Chloride Er 20 Meq Tab.Er.Prt PO 02/10/25 06:48 20 meq ONCE ONE Administration Potassium Chloride 40 meq 02/10/25 06:47 02/10/25 07:04 Potassium Chloride Packet 20 Meq Packet PO 02/10/25 06:48 Not Given ONCE ONE Medical Decision Making Medical Decision Making [facility] Narrative: 6:50 AM 02/10/2025 (Dr. Shon Blas): Emergency Department Course Initial discussion reviewed prior lab results noting reportedly slightly low potassium (awaiting confirmation). Plan is underway for additional blood work, electrocardiogram, and cardiac evaluation. The patient was informed that results would be communicated when available. He was tachycardic on initial presentation, I will obtain D-dimer to make sure this is not PE as he also told me that he has been really being sedentary he has somewhat of flat affect, but no SI or HI, has a history of panic attacks, physical exam nonfocal to suspect cerebellar stroke ECG the rest of the blood work unremarkable except for hypokalemia Differential Diagnosis Differential Diagnoses: The differential diagnosis associated with the presentation includes Most Likely Diagnoses: Acute coronary syndrome (ACS)?- particularly concerning given substernal chest pain radiating to left arm with associated nausea and 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 Young males under 40 represent approximately 1% of ACS cases, with smoking, sedentary lifestyle, and substance use (marijuana) being significant risk factors. Approximately 55% of young men with myocardial infarction present with STEMI. Panic attack/anxiety disorder?- can present with substernal chest pain, dizziness, nausea, and arm numbness/paresthesias. However, this remains a diagnosis of exclusion after ruling out cardiac causes, especially given the patient's risk factors and symptom profile suggestive of ischemia.[3-5] Acute pericarditis?- typically presents with sharp, pleuritic chest pain relieved by sitting forward, commonly affects men aged 20-50 years. However, substernal chest pain at rest with left arm numbness is less typical than the characteristic positional, sharp, pleuritic pain.[6-7] Pulmonary embolism?- the sedentary lifestyle over the past year is a significant risk factor. Typical presentation includes sudden onset dyspnea, chest pain, dizziness/syncope, nausea, tachycardia, and tachypnea, we will obtain D-dimer Aortic dissection?- although uncommon in young adults (7% of cases occur under age 40), patient did not presented with severe sudden chest pain radiating into the back to suspect this Admission/Observation Consideration of admission/observation: Escalation of care including admission/observation considered Lab Data MDM Lab Attestation statement: I reviewed the patient's lab results. 02/10/25 04:30 02/10/25 04:30 Labs: Lab Results 02/10/25 02/10/25 Range/Units 04:30 08:17 WBC 9.0 (4.8-10.8) X10*3/uL RBC 4.83 (4.60-5.80) X10*6/uL Hgb 14.8 (14.0-18.0) g/dl Hct 41.5 L (42.0-52.0) % MCV 85.9 (80.0-98.0) fL MCH 30.6 (27.0-33.0) pg MCHC 35.7 (31.0-36.0) g/dl RDW 12.2 (11.0-16.0) % Plt Count 217 (160-400) X10*3/uL MPV 11.8 (9.4-12.4) fL Immature Gran % (Auto) 0.4 (0.0-0.4) % Neut % (Auto) 47.4 (45-73) % Lymph % (Auto) 39.4 (20-40) % [place] % (Auto) 10.7 (2-11) % Eos % (Auto) 1.8 (0-4) % Baso % (Auto) 0.3 (0-2) % Lymph # (Auto) 3.5 (1.2-4.9) X10*3/uL [place] # (Auto) 1.0 (0.1-1.2) X10*3/uL Eos # (Auto) 0.2 (0.0-0.4) X10*3/uL Baso # (Auto) 0.0 (0.0-0.2) X10*3/uL Abs Immat Gran (auto) 0.04 H (0.00-0.03) X10*3/uL Absolute Neuts (auto) 4.3 (2.0-8.3) x10*3/uL Absolute Nucleated RBC 0.000 (0.0-0.012) X10*3/uL Nucleated RBC % (auto) 0.0 (0.0-0.2) /100WBC D-Dimer High Sensitivty < 150 NG/ML Sodium 140 (135-145) mmol/L Potassium 2.9 L* D (3.3-5.1) mmol/L Chloride 107 (96-108) mmol/L Carbon Dioxide 24 (22-29) mmol/L Anion Gap 12 (12-20) BUN 17 H (9-16) mg/dL Creatinine 1.25 (0.5-1.4) mg/dL Estim Creat Clear Calc 73.7 Estimated GFR > 60 Random Glucose 125 H (60-115) mg/dL Calcium 9.0 (8.4-10.2) mg/dL Magnesium 2.0 (1.6-2.6) mg/dL Total Bilirubin 0.9 (0.0-1.0) mg/dL AST 38 H (5-37) U/L ALT 71 H (0-40) U/L Alkaline Phosphatase 49 (39-117) U/L Troponin I High Sens < 2.7 (<3.5-35.0) ng/L Total Protein 6.7 (6.5-8.0) g/dL Albumin 4.7 (3.5-5.0) g/dL Independent Interpretation I performed an independent interpretation of an: EKG (106 beats per minute otherwise normal ECG without dysrhythmia, AV naty blocks or ST-T changes to suspect underlying ACS, my independent interpretation) and Plain X-Ray (My independent chest xray interpretation: Lungs: Lungs are clear bilaterally without evidence of focal consolidation, pleural effusion, or pneumothorax. Cardiac silhouette is unremarkable, no obvious mediastinal widening, no obvious bony abnormalities such as fractures. Impression: Normal chest X-r) Radiology Impression Discussion of test interpretation with radiology: I have reviewed the radiologist's reading. Independent Historian Clinical information obtained from an independent historian. History obtained from or confirmed by: EMS Discharge Plan Discharge Clinical Impression: Chest pain, precordial, Dizziness and giddiness, Acute hypokalemia Patient Disposition: Home, Self-Care Instructions: Hypokalemia (ED), Chest Pain (ED) Additional Instructions: Your EKG was reassuring, you had did have slightly elevated heart rate, your potassium was noted to be somewhat low You received potassium in the ER, we will continue potassium at home, make sure to stay well hydrated there was no evidence of dehydration on blood work, for your chest pain you had an ECG, cardiac enzymes all of which has been reassuring Follow up with the PCP any other issues or concerns come back to the ER Prescriptions: New potassium chloride 20 mEq packet 20 meq PO BID 7 Days Qty: 30 0RF No Action ondansetron 4 mg tablet,disintegrating 4 mg PO Q6-8H PRN (Reason: nausea and vomiting) Qty: 15 0RF clindamycin HCl [Cleocin HCl] 150 mg capsule 450 mg PO TID Qty: 60 0RF Print Language: Mohawk
[2025-02-10 07:30] VITALS: BP 103/58; PULSE 80; RESP 16
[2025-02-10] MEDS: Potassium Chloride ER 20 MEQ TAB.ER.PRT PO (07:48)
[2025-02-10 08:13] VITALS: BP 103/67; PULSE 69; RESP 14; O2SAT 98
[2025-02-10 08:56] LABS: D Dimer High Sensitivity < 150 NG/ML
[2025-02-10 09:23] VITALS: BP 103/67; PULSE 69; RESP 14; TEMP 36.7; O2SAT 98
== END 2025-02-10 09:35 | disposition home or self-care (01) ==
PROVIDERS: Emergency Provider Emergency Medicine
DX: R07.2 Precordial pain (principal); R42 Dizziness and giddiness; E87.6 Hypokalemia; R20.0 Anesthesia of skin; R11.0 Nausea; R00.0 Tachycardia, unspecified
CPT/HCPCS: 36415; 71046; 80053; 83735; 84484; 85025; 85379; 93005; 99284; 99285

== ENCOUNTER → 2025-02-10 04:22 | Outpatient (BNV) | payer SELFPAY | PROVIDERS: Emergency Provider Emergency Medicine; Visit Provider Internal Medicine Cardiovascular Disease | DX: R00.0 Tachycardia, unspecified (principal) | CPT/HCPCS: 93010 ==

== ENCOUNTER → 2025-02-10 06:52 | Outpatient (BNV) | payer SELFPAY | PROVIDERS: Emergency Provider Emergency Medicine; Visit Provider Radiology Diagnostic Radiology | DX: R07.9 Chest pain, unspecified (principal) | CPT/HCPCS: 71046 ==